=== PATIENT | male | born 1975 | race African-American/Black ===

== ENCOUNTER 2016-12-27 09:35 | Inpatient (IN) | payer OTHER ==
[~2016-12-27] VITALS: Ht 180.3 cm; Wt 109.0 kg
[2016-12-27] VITALS (8 sets, daily range): BP systolic 138–178; BP diastolic 105–124; PULSE 74–117; RESP 16–20; TEMP 97.9–98.2; O2SAT 97–100
[2016-12-27] MEDS ORDERED: ONDANSETRON HCL 4 MG/2 ML VIAL IVP ONE (10:15)
[2016-12-27] MEDS ORDERED: SODIUM CHLORIDE 0.9% FLUSH 5 ML FLUSH IVF PRN (10:15)
[2016-12-27] MEDS ORDERED: MORPHINE SULFATE 4 MG/ML INJ IV PUSH ONE (10:15)
--- NOTE | 2016-12-27 10:23 | PD ---
HPI Chief Complaint: GI Complaint Time Seen by Provider: 10:04 Travel History International Travel<30 days: No Contact w/Intl Traveler<30days: No Traveled to known affect area: No History of Present Illness HPI The patient is a 41-year-old [place] male who presents to the emergency department for multiple complaints. Patient states he recently moved from [place], [place] one month ago to relocate. The patient states over the last month he has had increasing abdominal distention associated with some nausea, decreased appetite, and diarrhea. He also complains of increase in edema to lower extremities bilaterally for the last week. He now notes increasing shortness of breath, states he has difficulty taking a deep breath, but denies any chest pain or cough. The patient does have a history of cardiomyopathy with a "thickened heart "and hypertension for which he was taking Benicar. However, the patient has been out of his Benicar secondary to financial issues for several months. The patient is had no previous imaging of his abdomen in regards to his month-long symptoms. The patient does not currently have a primary physician. PFS Past Medical History Cardiovascular Problems: Yes (HTN) GERD: Yes Hypertension: Yes Medical other: Yes ("THICKENING" OF THE HEART) Social History Alcohol Use: No Tobacco Use: No Substance Use: No Allergies-Medications (Allergen,Severity, Reaction): Coded Allergies: Morphine (Verified Allergy, Intermediate, Hives, 12/27/16) Reported Meds & Prescriptions Reported Meds & Active Scripts Active No Active Prescriptions or Reported Medications Review of Systems Except as stated in HPI: all other systems reviewed are Neg General / Constitutional: No: Fever Cardiovascular: No: Chest Pain or Discomfort Respiratory: Positive: Shortness of Breath Gastrointestinal: Positive: Nausea, Vomiting, Diarrhea, Abdominal Pain, Loss of Appetite Musculoskeletal: Positive: Edema Neurologic: Positive: Weakness Physical Exam Narrative GENERAL: Awake, alert, 41-year-old male appears his stated age and appears in mild respiratory discomfort. SKIN: Warm and dry. HEAD: Atraumatic. Normocephalic. EYES: Pupils equal and round. No scleral icterus. No injection or drainage. ENT: No nasal bleeding or discharge. Mucous membranes pink and moist. NECK: Trachea midline. Mild JVD. CARDIOVASCULAR: Regular, tachycardic. RESPIRATORY: No accessory muscle use. Clear to auscultation. Breath sounds equal bilaterally. GASTROINTESTINAL: Abdomen soft, mild distention, tenderness in the epigastrium. MUSCULOSKELETAL: No obvious deformities.. Edema from the knees inferiorly. NEUROLOGICAL: Awake and alert. No obvious cranial nerve deficits. Motor grossly within normal limits. Normal speech. Nonfocal. PSYCHIATRIC: Appropriate mood and affect; insight and judgment normal. Data Data Last Documented VS Vital Signs Date Time Temp Pulse Resp B/P Pulse Ox O2 Delivery O2 Flow Rate FiO2 12/27/16 13:29 95 20 178/124 97 12/27/16 13:29 Room Air 12/27/16 09:36 98.2 Orders Complete Blood Count With Diff (12/27/16 10:15) Comprehensive Metabolic Panel (12/27/16 10:15) Lipase (12/27/16 10:15) Lactic Acid (12/27/16 10:15) Prothrombin Time / Inr (Pt) (12/27/16 10:15) Act Partial Throm Time (Ptt) (12/27/16 10:15) Urinalysis - C+S If Indicated (12/27/16 10:15) Ct Abd/Pel W/O Iv Contrast (12/27/16 10:15) Iv Access Insert/Monitor (12/27/16 10:15) Ecg Monitoring (12/27/16 10:15) Oximetry (12/27/16 10:15) Morphine Inj (Morphine Inj) (12/27/16 10:15) Ondansetron Inj (Zofran Inj) (12/27/16 10:15) Sodium Chloride 0.9% Flush (Ns Flush) (12/27/16 10:15) Electrocardiogram (12/27/16 10:15) Chest, Single Ap (12/27/16 10:15) Us Leg Venous Doppler Bilat (12/27/16 ) Troponin I (12/27/16 10:15) Creatine Kinase (Cpk) (12/27/16 10:15) B-Type Natriuretic Peptide (12/27/16 10:15) Aspirin Chew (Aspirin Chew) (12/27/16 12:45) Admit Order (Ed Use Only) (12/27/16 13:32) Labs Laboratory Tests Test 12/27/16 12/27/16 10:20 10:35 White Blood Count 5.4 TH/MM3 Red Blood Count 5.02 MIL/MM3 Hemoglobin 13.8 GM/DL Hematocrit 41.9 % Mean Corpuscular Volume 83.4 FL Mean Corpuscular Hemoglobin 27.4 PG Mean Corpuscular Hemoglobin 32.9 % Concent Red Cell Distribution Width 14.4 % Platelet Count 230 TH/MM3 Mean Platelet Volume 9.6 FL Neutrophils (%) (Auto) 49.0 % Lymphocytes (%) (Auto) 36.1 % Monocytes (%) (Auto) 13.5 % Eosinophils (%) (Auto) 0.7 % Basophils (%) (Auto) 0.7 % Neutrophils # (Auto) 2.6 TH/MM3 Lymphocytes # (Auto) 1.9 TH/MM3 Monocytes # (Auto) 0.7 TH/MM3 Eosinophils # (Auto) 0.0 TH/MM3 Basophils # (Auto) 0.0 TH/MM3 CBC Comment DIFF FINAL Differential Comment Prothrombin Time 12.7 SEC Prothromb Time International 1.1 RATIO Ratio Activated Partial 24.8 SEC Thromboplast Time Sodium Level 143 MEQ/L Potassium Level 4.1 MEQ/L Chloride Level 106 MEQ/L Carbon Dioxide Level 27.4 MEQ/L Anion Gap 10 MEQ/L Blood Urea Nitrogen 19 MG/DL Creatinine 1.74 MG/DL Estimat Glomerular Filtration 52 ML/MIN Rate Random Glucose 130 MG/DL Lactic Acid Level 1.0 mmol/L Calcium Level 8.5 MG/DL Total Bilirubin 1.5 MG/DL Aspartate Amino Transf 29 U/L (AST/SGOT) Alanine Aminotransferase 49 U/L (ALT/SGPT) Alkaline Phosphatase 66 U/L Total Creatine Kinase 182 U/L Troponin I 0.42 NG/ML Total Protein 5.9 GM/DL Albumin 3.0 GM/DL Lipase 329 U/L Urine Color YELLOW Urine Turbidity HAZY Urine pH 7.0 Urine Specific [place] 1.025 Urine Protein 300 mg/dL Urine Glucose (UA) NEG mg/dL Urine Ketones NEG mg/dL Urine Occult Blood NEG Urine Nitrite NEG Urine Bilirubin SMALL Urine Urobilinogen LESS THAN 2.0 MG/DL Urine Leukocyte Esterase NEG Urine RBC LESS THAN 1 /hpf Urine WBC 2 /hpf Urine Squamous Epithelial <1 /hpf Cells Urine Hyaline Casts 6 /lpf Urine Mucus MOD /lpf Microscopic Urinalysis Comment CULT NOT INDICATED MDM Medical Decision Making Medical Screen Exam Complete: Yes Emergency Medical Condition: Yes Medical Record Reviewed: Yes Interpretation(s) EKG reveals sinus tachycardia with a heart rate of 101. Nonspecific T wave changes with inverted T waves in lead 1, aVL, V4, V5, V6. Last Impressions Abdomen/Pelvis CT 12/27/16 1015 Signed Impressions: Service Date/Time: Tuesday, December 27, 2016 12:02 - CONCLUSION: Umbilical hernia containing an air filled loop of intestine. There is no evidence of obstruction or incarceration. Anasarca and edematous changes in the retroperitoneum as described. Smaller moderate right pleural effusion and mild cardiomegaly. No evidence of inflammatory bowel disease, hydronephrosis, pancreatitis or cholecystitis. Antony Zuniga MD Lower Extremity Ultrasound 12/27/16 0000 Signed Impressions: Service Date/Time: Tuesday, December 27, 2016 11:12 - CONCLUSION: No DVT. Eddy Moffett MD Laboratory Tests Test 12/27/16 12/27/16 10:20 10:35 White Blood Count 5.4 TH/MM3 Red Blood Count 5.02 MIL/MM3 Hemoglobin 13.8 GM/DL Hematocrit 41.9 % Mean Corpuscular Volume 83.4 FL Mean Corpuscular Hemoglobin 27.4 PG Mean Corpuscular Hemoglobin 32.9 % Concent Red Cell Distribution Width 14.4 % Platelet Count 230 TH/MM3 Mean Platelet Volume 9.6 FL Neutrophils (%) (Auto) 49.0 % Lymphocytes (%) (Auto) 36.1 % Monocytes (%) (Auto) 13.5 % Eosinophils (%) (Auto) 0.7 % Basophils (%) (Auto) 0.7 % Neutrophils # (Auto) 2.6 TH/MM3 Lymphocytes # (Auto) 1.9 TH/MM3 Monocytes # (Auto) 0.7 TH/MM3 Eosinophils # (Auto) 0.0 TH/MM3 Basophils # (Auto) 0.0 TH/MM3 CBC Comment DIFF FINAL Differential Comment Prothrombin Time 12.7 SEC Prothromb Time International 1.1 RATIO Ratio Activated Partial 24.8 SEC Thromboplast Time Sodium Level 143 MEQ/L Potassium Level 4.1 MEQ/L Chloride Level 106 MEQ/L Carbon Dioxide Level 27.4 MEQ/L Anion Gap 10 MEQ/L Blood Urea Nitrogen 19 MG/DL Creatinine 1.74 MG/DL Estimat Glomerular Filtration 52 ML/MIN Rate Random Glucose 130 MG/DL Lactic Acid Level 1.0 mmol/L Calcium Level 8.5 MG/DL Total Bilirubin 1.5 MG/DL Aspartate Amino Transf 29 U/L (AST/SGOT) Alanine Aminotransferase 49 U/L (ALT/SGPT) Alkaline Phosphatase 66 U/L Total Creatine Kinase 182 U/L Troponin I 0.42 NG/ML Total Protein 5.9 GM/DL Albumin 3.0 GM/DL Lipase 329 U/L Urine Color YELLOW Urine Turbidity HAZY Urine pH 7.0 Urine Specific [place] 1.025 Urine Protein 300 mg/dL Urine Glucose (UA) NEG mg/dL Urine Ketones NEG mg/dL Urine Occult Blood NEG Urine Nitrite NEG Urine Bilirubin SMALL Urine Urobilinogen LESS THAN 2.0 MG/DL Urine Leukocyte Esterase NEG Urine RBC LESS THAN 1 /hpf Urine WBC 2 /hpf Urine Squamous Epithelial <1 /hpf Cells Urine Hyaline Casts 6 /lpf Urine Mucus MOD /lpf Microscopic Urinalysis Comment CULT NOT INDICATED Differential Diagnosis Differential diagnosis includes ascites, anasarca, DVT, pulmonary embolism, nutmeg liver, liver failure, acute renal failure, pleural effusion, congestive heart failure, cardiomyopathy. Narrative Course IV was established, labs are drawn and sent, and the patient was placed on cardiac telemetry monitoring and continuous pulse oximetry monitoring. Chest x- ray was obtained. Ultrasound bilateral lower extremities was ordered to evaluate for possible DVTs patient recently traveled, via car, from [place], [place] to [place]. CT the abdomen and pelvis was also ordered to evaluate abdominal distention and ongoing pain of one month's duration. CT of the abdomen and pelvis reveals retroperitoneal anasarca. Creatinine is mildly elevated at 1.78, troponin is elevated 0.42. Chest x-ray reveals right pleural effusion. Ultrasound lower extremities is negative for DVT. The patient appears to have anasarca, may be secondary to cardiomyopathy with elevated troponin. Patient will be admitted for serial cardiac enzymes, may benefit from echocardiogram and further evaluation by nephrology and cardiology. Therefore, the on-call medical service was paged for admission. Physician Communication Physician Communication The on-call medical service was paged for admission. I discussed the patient with Dr. Box who agrees with admission. Diagnosis Primary Impression: Acute coronary syndrome Additional Impressions: Cardiomyopathy Qualified Code: I42.9 - Cardiomyopathy, unspecified type Anasarca Admitting Information Admitting Physician Requests: Admit Scripts No Active Prescriptions or Reported Meds Condition: Stable Mirza Ames MD Dec 27, 2016 10:23
[2016-12-27 10:51] LABS: AUTOMATED NEUTROPHIL # 2.6 TH/MM3 (1.8-7.7); BASOPHIL % 0.7 % (0.0-2.0); EOSINOPHIL % 0.7 % (0.0-4.0); HEMATOCRIT 41.9 % (39.0-51.0); HEMO FLAGS DIFF FINAL; LYMPH % 36.1 % (9.0-44.0); LYMPHOCYTE # 1.9 TH/MM3 (1.0-4.8); MEAN CELL VOLUME 83.4 FL (80.0-100.0); MEAN CORPUSCULAR HEMOGLOBIN 27.4 PG (27.0-34.0); MEAN CORPUSCULAR HGB CONC 32.9 % (32.0-36.0); MONO % 13.5 % (0.0-8.0); PLATELET COUNT 230 TH/MM3 (150-450); RED BLOOD COUNT 5.02 MIL/MM3 (4.50-5.90); RED CELL DISTRIBUTION WIDTH 14.4 % (11.6-17.2); WHITE BLOOD COUNT 5.4 TH/MM3 (4.0-11.0)
[2016-12-27 10:56] LABS: APTT (PATIENT) 24.8 SEC (24.3-30.1); INTERNATIONAL NORMALIZED RATIO 1.1 RATIO; PROTHROMBIN TIME - PATIENT 12.7 SEC (9.8-11.6)
[2016-12-27 11:06] LABS: BLOOD, URINE NEG (NEG); GLUCOSE,URINE NEG (NEG); HYALINE CAST, URINE 6 /lpf (RARE); KETONE, URINE NEG (NEG); MUCUS URINE MOD /lpf (OCC); NITRITE,URINE NEG (NEG); SQUAMOUS EPITHELIAL CELL URINE <1 /hpf (0-5); URINE COLOR YELLOW (YELLW/STRAW)
--- NOTE | 2016-12-27 11:06 | RADRPT ---
EXAM DATE/TIME: 12/27/2016 10:24 [facility] COMPARISON: No previous studies available for comparison. INDICATIONS : Short of Breath MEDICAL HISTORY : Hypertension. Congestive heart failure. SURGICAL HISTORY : None. ENCOUNTER: Initial ACUITY: 1 day PAIN SCORE: 0/10 LOCATION: Bilateral chest FINDINGS: Heart is enlarged. Pulmonary vascularity is normal. Very minimal blunting is seen right costophreni c sulcus. CONCLUSION: Moderate compensated cardiomegaly without significant failure. Terry Duarte MD FACR on December 27, 2016 at 10:38 Board Certified Radiologist. This report was verified electronically.
[2016-12-27 11:09] LABS: COMMENT (UR) CULT NOT INDICATED; CULTURE IF INDICATED CULT NOT INDICATED
[2016-12-27 11:15] LABS: ALKALINE PHOSPHATASE 66 U/L (45-117); ALT (GPT) 49 U/L (12-78); ANION GAP 10 MEQ/L (5-15); AST (GOT) 29 U/L (15-37); BICARBONATE 27.4 MEQ/L (21.0-32.0); BLOOD UREA NITROGEN 19 MG/DL (7-18); CHLORIDE 106 MEQ/L (98-107); CREATINE KINASE 182 U/L (39-308); GLOMERULAR FILTRATION RATE 52 ML/MIN (>89); SODIUM (NA) 143 MEQ/L (136-145); TOTAL BILIRUBIN ADULT 1.5 MG/DL (0.2-1.0)
[2016-12-27 11:16] LABS: POTASSIUM 4.1 MEQ/L (3.5-5.1)
--- NOTE | 2016-12-27 12:41 | RADRPT ---
EXAM DATE/TIME: 12/27/2016 12:02 [facility] COMPARISON: No previous studies available for comparison. INDICATIONS : Abdominal bloating, cramping, nausea ORAL CONTRAST: No oral contrast ingested. RADIATION DOSE: 16.19 CTDIvol (mGy) MEDICAL HISTORY : None SURGICAL HISTORY : None. ENCOUNTER: Initial ACUITY: 1 month PAIN SCALE: 3/10 LOCATION: diffuse abdomen TECHNIQUE: Volumetric scanning of the abdomen and pelvis was performed. Using automated exposure control and ad justment of the mA and/or kV according to patient size, radiation dose was kept as low as reasonably achievable to obtain optimal diagnostic quality images. FINDINGS: LOWER LUNGS: Small to moderate right pleural effusion is noted. Heart is mildly enlarged. LIVER: Homogeneous density without lesion. There is no dilation of the biliary tree. No calcified gallston es. SPLEEN: Normal size without lesion. PANCREAS: Within normal limits. KIDNEYS: Normal in size and shape. There is no mass, stone, or hydronephrosis. ADRENAL GLANDS: Within normal limits. VASCULAR: There is no aortic aneurysm. BOWEL/MESENTERY: The stomach, small bowel, and colon demonstrate no acute abnormality. There is no free intraperitone al air or fluid. ABDOMINAL WALL: Moderate sized umbilical hernia containing a loop of air-filled bowel is noted. There are no findings to suggest obstruction or incarceration. Edematous changes are seen throughout the abdominal wall co nsistent with anasarca. RETROPERITONEUM: Fluid stranding is identified across the retroperitoneum in the pelvic region. There is no evidence o f discrete loculated fluid collections or mass. BLADDER: No wall thickening or mass. REPRODUCTIVE: Within normal limits. INGUINAL: There is no lymphadenopathy or hernia. MUSCULOSKELETAL: Within normal limits for patient age. CONCLUSION: Umbilical hernia containing an air filled loop of intestine. There is no evidence of obstruction or i ncarceration. Anasarca and edematous changes in the retroperitoneum as described. Smaller moderate right pleural effusion and mild cardiomegaly. No evidence of inflammatory bowel disease, hydronephrosis, pancreatitis or cholecystitis. Antony Zuniga MD on December 27, 2016 at 12:32 Board Certified Radiologist. This report was verified electronically.
--- NOTE | 2016-12-27 12:41 | RADRPT ---
EXAM DATE/TIME: 12/27/2016 11:12 [facility] COMPARISON: No previous studies available for comparison. INDICATIONS : Bialteral lower extremity edema. MEDICAL HISTORY : Hypertension. Gastroesophageal reflux disease. SURGICAL HISTORY : Left ACL and MCL repair. ENCOUNTER: Initial ACUITY: 2 weeks PAIN SCORE: 0/10 LOCATION: Bilateral legs. TECHNIQUE: Venous ultrasound of the left and right leg was performed from the inguinal ligament to the proximal calf. Real-time, color Doppler and spectral tracing, compression and augmentation techniques were us ed. FINDINGS: RIGHT LEG: There is normal compressibility of the deep venous system from the inguinal region to the proximal ca lf. No echogenic clot is seen in the lumen of the common femoral, femoral, popliteal, and posterior tibial veins. There is a normal response of the venous system to proximal and distal augmentation an d respiration. LEFT LEG: There is normal compressibility of the deep venous system from the inguinal region to the proximal ca lf. No echogenic clot is seen in the lumen of the common femoral, femoral, popliteal, and posterior tibial veins. There is a normal response of the venous system to proximal and distal augmentation an d respiration. CONCLUSION: No DVT. Eddy Moffett MD on December 27, 2016 at 12:39 Board Certified Radiologist. This report was verified electronically.
[2016-12-27] MEDS ORDERED: ASPIRIN 81 MG CHEW TAB CHEW ONE (12:45)
--- NOTE | 2016-12-27 13:29 | HHI.HP ---
HPI Service Family Medicine Primary Care Physician No Primary Care Physician Admission Diagnosis Diagnoses: International Travel<30 Days: No Contact w/Intl Traveler<30days: No Known Affected Area: No History of Present Illness Patient is a 41-year-old male with a PMH significant for cardiomyopathy and HTN. Present here today due to progressive worsening abdominal pain and SOB. The abdominal pain started one month ago and described as sharp pain that is positional. The shortness of breath has been progressively worsening over the last week and he noticed bilateral lower extremity swelling over the last couple weeks. He has noticed an associated abdominal bloating, decreased appetite, vomiting, nausea over this time period. Denies any chest pain. [place] like symptoms were initially due to constipation and has been taking Mylanta which does help with bloating but causes him to have diarrhea. The bloating sensation makes this SOB worse. Endorses a one-time episode of fever 2 weeks ago but none since. Endorses cough and orthopnea. Denies diaphoresis, melena, dysuria. Reports that he used to take an NELLY inhibitor to help with his cardiomyopathy and hypertension but has ran out due to insurance issues. Review of Systems Constitutional: COMPLAINS OF: Change in appetite, DENIES: Diaphoretic episodes , Fever Endocrine: DENIES: Polyuria Eyes: DENIES: Eye pain Ears, nose, mouth, throat: DENIES: Throat pain, Running Nose Respiratory: COMPLAINS OF: Cough, Shortness of breath, DENIES: Hemoptysis Cardiovascular: COMPLAINS OF: Lower Extremity Edema, Orthopnea, DENIES: Chest pain Gastrointestinal: COMPLAINS OF: Abdominal pain, Diarrhea, Nausea, Vomiting, DENIES: Black stools, Bloody stools Genitourinary: DENIES: Hematuria, Dysuria Musculoskeletal: DENIES: Joint pain Neurologic: DENIES: Headache Past Family Social History Past Medical History Cardiomyopathy HTN Past Surgical History Left knee, ACL and MCL repair Reported Medications Reported Meds & Active Scripts Active No Active Prescriptions or Reported Medications Allergies: Coded Allergies: Morphine (Verified Allergy, Intermediate, Hives, 12/27/16) Family History Father: [place] at young age, strokes Mother: Cardiac issues Social History Lives in hotel/emergency senior care Tobacco: deneis Alcohol: Use to drink socially, none over last 6mth Illicit: denies Physical Exam Vital Signs Vital Signs Date Time Temp Pulse Resp B/P Pulse Ox O2 Delivery O2 Flow Rate FiO2 12/27/16 09:36 98.2 117 16 157/121 98 Room Air Physical Exam GENERAL: This is a well-nourished, well-developed patient, in no apparent distress. Laying in bed comfortably. SKIN: No rashes, ecchymoses or lesions. Cool and dry. EYES: Pupils equal round and reactive. Extraocular motions intact. No scleral icterus. No injection or drainage. ENT: Nose without bleeding, purulent drainage. Throat without erythema, tonsillar hypertrophy or exudate. Uvula midline. Airway patent. NECK: No JVD or lymphadenopathy. CARDIOVASCULAR: Regular rate and rhythm without murmurs, gallops, or rubs. RESPIRATORY: Clear to auscultation. Breath sounds equal bilaterally. No wheezes , rales, or rhonchi. No accessory muscle use. GASTROINTESTINAL: Abdomen soft, mild tenderness to palpation of suprapubic, nondistended. No hepato-splenomegaly, or palpable masses. No guarding. MUSCULOSKELETAL: Extremities without clubbing, cyanosis. 3+ pitting edema up to knees bilaterally. Worse on R>L. No calf tenderness. NEUROLOGICAL: Awake and alert. Motor grossly within normal limits. Normal speech. Laboratory Laboratory Tests Test 12/27/16 12/27/16 10:20 10:35 White Blood Count 5.4 Red Blood Count 5.02 Hemoglobin 13.8 Hematocrit 41.9 Mean Corpuscular Volume 83.4 Mean Corpuscular Hemoglobin 27.4 Mean Corpuscular Hemoglobin 32.9 Concent Red Cell Distribution Width 14.4 Platelet Count 230 Mean Platelet Volume 9.6 Neutrophils (%) (Auto) 49.0 Lymphocytes (%) (Auto) 36.1 Monocytes (%) (Auto) 13.5 Eosinophils (%) (Auto) 0.7 Basophils (%) (Auto) 0.7 Neutrophils # (Auto) 2.6 Lymphocytes # (Auto) 1.9 Monocytes # (Auto) 0.7 Eosinophils # (Auto) 0.0 Basophils # (Auto) 0.0 CBC Comment DIFF FINAL Differential Comment Prothrombin Time 12.7 Prothromb Time International 1.1 Ratio Activated Partial 24.8 Thromboplast Time Sodium Level 143 Potassium Level 4.1 Chloride Level 106 Carbon Dioxide Level 27.4 Anion Gap 10 Blood Urea Nitrogen 19 Creatinine 1.74 Estimat Glomerular Filtration 52 Rate Random Glucose 130 Lactic Acid Level 1.0 Calcium Level 8.5 Total Bilirubin 1.5 Aspartate Amino Transf 29 (AST/SGOT) Alanine Aminotransferase 49 (ALT/SGPT) Alkaline Phosphatase 66 Total Creatine Kinase 182 Troponin I 0.42 Total Protein 5.9 Albumin 3.0 Lipase 329 Urine Color YELLOW Urine Turbidity HAZY Urine pH 7.0 Urine Specific [place] 1.025 Urine Protein 300 Urine Glucose (UA) NEG Urine Ketones NEG Urine Occult Blood NEG Urine Nitrite NEG Urine Bilirubin SMALL Urine Urobilinogen LESS THAN 2.0 Urine Leukocyte Esterase NEG Urine RBC LESS THAN 1 Urine WBC 2 Urine Squamous Epithelial <1 Cells Urine Hyaline Casts 6 Urine Mucus MOD Microscopic Urinalysis Comment CULT NOT INDICATED Result Diagram: 12/27/16 1020 12/27/16 1020 Imaging Last Impressions Abdomen/Pelvis CT 12/27/16 1015 Signed Impressions: Service Date/Time: Tuesday, December 27, 2016 12:02 - CONCLUSION: Umbilical hernia containing an air filled loop of intestine. There is no evidence of obstruction or incarceration. Anasarca and edematous changes in the retroperitoneum as described. Smaller moderate right pleural effusion and mild cardiomegaly. No evidence of inflammatory bowel disease, hydronephrosis, pancreatitis or cholecystitis. Antony Zuniga MD Lower Extremity Ultrasound 12/27/16 0000 Signed Impressions: Service Date/Time: Tuesday, December 27, 2016 11:12 - CONCLUSION: No DVT. Eddy Moffett MD Assessment and Plan Assessment and Plan 41-year-old male with PMH significant for cardiomyopathy and HTN. Code Status Full Discussed Condition With Dr. Cameron Problem List: (1) Cardiomyopathy Status: Acute Plan: History significant for cardiomyopathy. Associated with progressive shortness of breath, abdominal bloating, lower extremity swelling over the last month. Has been on NELLY inhibitor in the past but none recently due to financial issues. -Diureses per nephrology due to poor renal function -BNP elevated at 1025 -ACS evaluation * Troponin elevated likely due to cardiomyopathy and CKD as there is no acute chest pain -Echo ordered -ALPA santizo Cardiology consulted: Appreciate recommendations Medications: * Bumex 2mg daily * metoprolol 25mg BID * will consider the need for NELLY inhibitor (2) SOB (shortness of breath) Status: Acute Plan: Etiology unclear but likely due to cardiomyopathy. -Diuresis as above -No DVT on lower extremity ultrasound -Diagnostic pleurocentesis ordered with appropriate studies Imaging: * CXR: Moderate compensated cardiomegaly without significant failure * Abdominal/pelvis CT: Umbilical hernia without evidence of obstruction or incarceration. Anasarca and edematous changes in the retroperitoneum. Smaller moderate right pleural effusion and mild cardiomegaly. No evidence of IBD, hydronephrosis, pancreatitis, cholecystitis. (3) CKD (chronic kidney disease) Status: Acute Plan: Suspect patient may have an underlining kidney disease that may have been exacerbated by HTN and cardiomyopathy. No baseline renal function to compare as the patient denies any prior history of renal dysfunction. -UA significant for proteinuria Nephrology consulted: appreciate recommendations * Obtain A1c, electrophoresis, complement (4) HTN (hypertension) Status: Acute Plan: Hypertensive on admission. -Hydralazine PRN -Consider adding HCTZ vs NELLY inhibitor (5) Nutrition, metabolism, and development symptoms Status: Acute Plan: Diet: Heart healthy with salt and fluid restrictions Electrolytes: Unremarkable Fluids: None DVT prophylaxis: Heparin held until after pleurocentesis, SCDs for now GI prophylaxis: Not indicated Physician Certification 2 Midnight Certification Type: Admission for Inpatient Services Order for Inpatient Services The services are ordered in accordance with Medicare regulations or non- Medicare payer requirements, as applicable. In the case of services not specified as inpatient-only, they are appropriately provided as inpatient services in accordance with the 2-midnight benchmark. Estimated LOS (days): 2 days is the estimated time the patient will need to remain in the hospital, assuming treatment plan goals are met and no additional complications. Post-Hospital Plan: Home Problem Qualifiers (1) Cardiomyopathy: Qualified Code: I42.9 - Cardiomyopathy, unspecified type Smiley Lowe MD R2 Dec 27, 2016 13:29
[2016-12-27] MEDS ORDERED: SODIUM CHLORIDE 0.9% FLUSH 5 ML FLUSH FLUSH PRN (14:15)
[2016-12-27] MEDS ORDERED: NALOXONE HCL 0.4 MG/ML AMP IV PRN (14:15)
[2016-12-27] MEDS ORDERED: hydrALAZINE HCL 10 MG TAB PO PRN (14:30)
[2016-12-27] MEDS ORDERED: HEPARIN SODIUM - SQ 10,000 UNITS/ML VIAL SQ SCH (16:00)
[2016-12-27] MEDS ORDERED: hydrALAZINE HCL 10 MG TAB PO ONE (16:30)
--- NOTE | 2016-12-27 17:05 | PD.CONS ---
HPI Service Nephrology Consult Requested By Reason for Consult Evaluation of fluid overload, possible CKD Primary Care Physician No Primary Care Physician History of Present Illness This is a 41 y/o AAM pt. He came in for evaluation of one month of symptoms including nausea, abdominal fullness, lower extremity edema, shortness of breath. He has been vomiting intermittently as well. 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 He is currently living in a hotel. Labs on arrival abnormal for the following: Cr 1.74 , BUN 19, GFR 52, BNP 1025, Trop 0.42, Blood sugar 130. K and C02 are unremarkable. He was diagnosed with cardiomyopathy at the age of 21, approximately 20 years ago. He was placed on Benicar a number of years ago, but had run out if it and had no insurance. Today he has 3+ pitting in his lower extremities, anasarca on CT, and pleural effusion by Xray. His UA shows high levels of protein, no evidence of infection. imaging did not reveal any obstruction. He used Ibuprofen one time but that was nearly one month ago. He does report his urine output has decreased. (Citlaly Clinton) Review of Systems Constitutional: COMPLAINS OF: Fatigue, Weight gain Cardiovascular: COMPLAINS OF: Dyspnea on Exertion, Lower Extremity Edema Gastrointestinal: COMPLAINS OF: Diarrhea, Nausea, Vomiting, DENIES: Abdominal pain (Citlaly Clinton) Past Family Social History Allergies: Coded Allergies: Morphine (Verified Allergy, Intermediate, Hives, 12/27/16) Past Medical History HTN Cardiomyopathy GERD Past Surgical History L knee (ACL, MCL) Reported Medications he was not taking any medications prior to admission. Active Ordered Medications Current Medications Medications (Trade) Dose Ordered Sig/Yo Route Start Time Stop Time Status Last Admin (NS Flush) 2 ml UNSCH PRN IVF 12/27/16 10:15 (NS Flush) 2 ml UNSCH PRN FLUSH 12/27/16 14:15 (NS Flush) 2 ml BID FLUSH 12/27/16 21:00 (Zofran Inj) 4 mg Q6H PRN IVP 12/27/16 14:15 (Heparin Inj) 5,000 units Q8H SQ 12/27/16 16:00 (Tylenol) 650 mg Q6H PRN PO 12/27/16 14:15 (Narcan Inj) 0.4 mg UNSCH PRN IV 12/27/16 14:15 (Apresoline) 10 mg Q6HR PRN PO 12/27/16 14:30 Family History mother-DM2 father-DM 2, CVA, PAD s/p bilateral AKA no hx of renal disorders Social History 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 he is single, living in a motel temporarily unemployed no smoking hx, no drug hx former social ETOH full code (Citlaly Clinton) Physical Exam Vital Signs Vital Signs Date Time Temp Pulse Resp B/P Pulse Ox O2 Delivery O2 Flow Rate FiO2 12/27/16 16:12 99 20 174/109 98 Room Air 12/27/16 13:29 95 20 178/124 97 12/27/16 13:29 99 Room Air 12/27/16 09:36 98.2 117 16 157/121 98 Room Air Physical Exam Young appearing AAM, sitting up awake/alert/oriented S1/S2, regular rate, no murmurs Lungs: bibasilar rales Abd: slightly tender Ext: 3+ edema, no open wounds Laboratory Laboratory Tests Test 12/27/16 12/27/16 10:20 10:35 White Blood Count 5.4 Red Blood Count 5.02 Hemoglobin 13.8 Hematocrit 41.9 Mean Corpuscular Volume 83.4 Mean Corpuscular Hemoglobin 27.4 Mean Corpuscular Hemoglobin 32.9 Concent Red Cell Distribution Width 14.4 Platelet Count 230 Mean Platelet Volume 9.6 Neutrophils (%) (Auto) 49.0 Lymphocytes (%) (Auto) 36.1 Monocytes (%) (Auto) 13.5 Eosinophils (%) (Auto) 0.7 Basophils (%) (Auto) 0.7 Neutrophils # (Auto) 2.6 Lymphocytes # (Auto) 1.9 Monocytes # (Auto) 0.7 Eosinophils # (Auto) 0.0 Basophils # (Auto) 0.0 CBC Comment DIFF FINAL Differential Comment Prothrombin Time 12.7 Prothromb Time International 1.1 Ratio Activated Partial 24.8 Thromboplast Time Sodium Level 143 Potassium Level 4.1 Chloride Level 106 Carbon Dioxide Level 27.4 Anion Gap 10 Blood Urea Nitrogen 19 Creatinine 1.74 Estimat Glomerular Filtration 52 Rate Random Glucose 130 Lactic Acid Level 1.0 Calcium Level 8.5 Total Bilirubin 1.5 Aspartate Amino Transf 29 (AST/SGOT) Alanine Aminotransferase 49 (ALT/SGPT) Alkaline Phosphatase 66 Total Creatine Kinase 182 Troponin I 0.42 B-Type Natriuretic Peptide 1025 Total Protein 5.9 Albumin 3.0 Lipase 329 Urine Color YELLOW Urine Turbidity HAZY Urine pH 7.0 Urine Specific [place] 1.025 Urine Protein 300 Urine Glucose (UA) NEG Urine Ketones NEG Urine Occult Blood NEG Urine Nitrite NEG Urine Bilirubin SMALL Urine Urobilinogen LESS THAN 2.0 Urine Leukocyte Esterase NEG Urine RBC LESS THAN 1 Urine WBC 2 Urine Squamous Epithelial <1 Cells Urine Hyaline Casts 6 Urine Mucus MOD Microscopic Urinalysis Comment CULT NOT INDICATED (Citlaly Clinton) Result Diagram: 12/27/16 1020 12/27/16 1020 Imaging Last Impressions Abdomen/Pelvis CT 12/27/16 1015 Signed Impressions: Service Date/Time: Tuesday, December 27, 2016 12:02 - CONCLUSION: Umbilical hernia containing an air filled loop of intestine. There is no evidence of obstruction or incarceration. Anasarca and edematous changes in the retroperitoneum as described. Smaller moderate right pleural effusion and mild cardiomegaly. No evidence of inflammatory bowel disease, hydronephrosis, pancreatitis or cholecystitis. Antony Zuniga MD Lower Extremity Ultrasound 12/27/16 0000 Signed Impressions: Service Date/Time: Tuesday, December 27, 2016 11:12 - CONCLUSION: No DVT. Eddy Moffett MD (Citlaly Clinton) Assessment and Plan Problem List: (1) FAY (acute kidney injury) Plan: with no labs for comparison unsure if the is FAY on CKD vs. CKD at this time there are no electrolyte abnormalities no obstruction on imaging he has never had renal work up UA showing protein, will quantify obtain A1c, fam hx of DM but no personal hx as of now obtain serologies, Serum electrophoresis, complement levels monitor urine output may have underlying CKD due to HTN or CHF, possibly DM await additional test results he is fluid overload, begin Bumex and monitor effect avoid IVF, avoid nephrotoxins daily renal panel (2) HTN (hypertension) Plan: formerly on Benicar given hydralazine, will start metoprolol, (heart rate is 90s) (3) Cardiomyopathy Plan: Echo ordered to evaluate LVEF, cardiology has been consulted diuresis as above he is scheduled for thoracentesis, diagnostic and therapeutic today (4) Acute coronary syndrome Plan: Elevated troponin EKG, echo, cardiology evaluation in progress (Citlaly Clinton) Assessment and Plan patient was seen and examined. Continue diuresis. He has proteinuria, CKD, and cardiomyopathy. Quantify proteinuria. Consider deposition diseases (including hereditary). Cardiology evaluation. (Etienne Terry MD) Problem Qualifiers (1) Cardiomyopathy: Qualified Code: I42.9 - Cardiomyopathy, unspecified type Citlaly Clinton Dec 27, 2016 17:05 Etienne Terry MD Dec 27, 2016 20:30
[2016-12-27] MEDS ORDERED: ENALAPRILAT 1.25 MG/ML VIAL IV PRN (18:15)
--- NOTE | 2016-12-27 19:03 | EC ---
Study Study Date:12/27/2016 STUDY CONCLUSIONS SUMMARY - Left ventricle: The cavity size was dilated. Wall thickness was increased in a pattern of moderate LVH. Systolic function was severely reduced. The estimated ejection fraction was 20%. Wall motion was normal; there were no regional wall motion abnormalities. - Aortic valve: Mild regurgitation. - Mitral valve: Mild regurgitation. - Left atrium: The atrium was mildly dilated. - Right ventricle: The cavity size was dilated. Wall thickness was normal. RV dysfunction. If LV function is below 40, please consider prescribing an ACEI or ARB or document rationale for non-use. PROCEDURE DATA STUDY STATUS: Elective. Procedure: Transthoracic echocardiography. Image quality was good. Scanning was performed from the parasternal, apical, and subcostal acoustic windows. Study completion: The patient tolerated the procedure well. Transthoracic echocardiography. M-mode, complete 2D, complete spectral Doppler, and color Doppler. Height: Height: 71in. Weight: Weight: 230.5lb. Body mass index: BMI: 32.2kg/m^2. Body surface area: BSA: 2.24m^2. Patient status: Inpatient. CARDIAC ANATOMY LEFT VENTRICLE: The cavity size was dilated. Wall thickness was increased in a pattern of moderate LVH. Systolic function was severely reduced. The estimated ejection fraction was 20%. Wall motion was normal; there were no regional wall motion abnormalities. AORTIC VALVE: Trileaflet; normal thickness leaflets. Doppler: Transvalvular velocity was within the normal range. There was no stenosis. Mild regurgitation. AORTA: Aortic root: The aortic root was normal in size. MITRAL VALVE: Structurally normal valve. Doppler: Transvalvular velocity was within the normal range. There was no evidence for stenosis. Mild regurgitation. Valve area by pressure half-time: 6.11cm^2. Indexed valve area by pressure half-time: 2.73cm^2/m^2. Peak gradient: 4mm Hg (D). LEFT ATRIUM: The atrium was mildly dilated. RIGHT VENTRICLE: The cavity size was dilated. Wall thickness was normal. RV dysfunction. PULMONIC VALVE: Doppler: Transvalvular velocity was within the normal range. There was no evidence for stenosis. No regurgitation. TRICUSPID VALVE: Structurally normal valve. Doppler: Transvalvular velocity was within the normal range. Trace regurgitation. Peak gradient: 33mm Hg (D). PULMONARY ARTERY: The main pulmonary artery was normal-sized. Systolic pressure was within the normal range. RIGHT ATRIUM: The atrium was normal in size. PERICARDIUM: There was no pericardial effusion. SYSTEMIC VEINS: Inferior vena cava: The vessel was normal in size. Patient weight: 230.5lb _Ejection fraction:_ 65-75% _Fractional shortening:_ 32% up to 5Kg 5-11.5Kg 11.6-22.9Kg 23-45Kg 45-57Kg Aortic Root 7-13 <17 13-22 17-27 17-27 LA diam 6-13 <23 24-38 33-47 37-40 RVID 10-17 7-15 7-15 7-18 8-17 LVIDd 12-22 <32 24-38 33-47 37-40 LVPW 2-4 3-6 5-7 6-8 7-8 IVS 2-4 3-6 5-7 6-8 7-8 BASIC MEASUREMENTS ADULT NORMAL Left ventricle LV internal dimension, ED, chordal *55.7 mm 43-52 level, PLAX LV internal dimension, ES, chordal *51.7 mm 23-38 level, PLAX Fractional shortening, chordal level, *7 % >29 PLAX LV posterior wall thickness, ED 17.4 mm IVS/LVPW ratio, ED 1 <1.3 Volume, ED, MOD, 1-plane 243 ml Volume, ES, MOD, 1-plane 184 ml Ejection fraction, MOD, 1-plane 24 % Stroke volume, MOD, 1-plane 59 ml Volume index, ED, MOD, 1-plane 108 ml/m^2 Volume index, ES, MOD, 1-plane 82 ml/m^2 Stroke index, MOD, 1-plane 26.3 ml/m^2 Ventricular septum Septal thickness, ED 17.4 mm Aortic valve Leaflet separation 23 mm 15-26 Left atrium Anterior-posterior dimension 44 mm Anterior-posterior dimension index 1.96 cm/m^2 <2.2 Right ventricle RV internal dimension, ED, PLAX 36.4 mm 19-38 BASIC MEASUREMENTS ADULT NORMAL Aortic valve Leaflet separation 23 mm 15-26 Aorta Root diameter, ED 33 mm 20-37 Left atrium Anterior-posterior dimension, ES *44 mm 19-40 Anterior-posterior dimension index, ES 1.96 cm/m^2 <2.2 LA/aortic root ratio 1.33 DOPPLER MEASUREMENTS ADULT NORMAL Aortic valve Peak velocity, S 91.9 cm/s Regurgitant velocity, ED 287 cm/s Regurgitant deceleration 2680 cm/s^2 Regurgitant pressure half-time 314 ms Regurgitant gradient, ED 33 mm Hg Mitral valve Peak E-wave velocity 103 cm/s Peak A-wave velocity 40.5 cm/s Pressure half-time 36 ms Peak gradient, D 4 mm Hg Peak E/A ratio 2.5 Valve area, pressure half-time 6.11 cm^2 Valve area index, pressure half-time 2.73 cm^2/m^2 Tricuspid valve Peak gradient, D 33 mm Hg Maximal inflow velocity 286 cm/s Systemic veins Estimated CVP 10 mm Hg Pulmonic valve Peak velocity, S 66.5 cm/s LEGEND: Mean values are shown as u=mean value. Asterisk (*) okeefe values outside specified normal range. Prepared and signed by Jin Wetzel [id number]
[2016-12-27] MEDS: BUMETANIDE INJ 1 MG/4 ML VIAL IV PUSH SCH (19:12)
--- NOTE | 2016-12-27 20:24 | MB ---
cc: CHARLIE WELLINGTON DATE OF CONSULTATION 12/27/2016 REASON FOR CONSULTATION Mr. Olmedo is a 41-year-old black male with a history of cardiomyopathy diagnosed in his early 20s and severe hypertension. He has had increased shortness of breath, abdominal pain and lower extremity edema for the last month progressively worse over the last 10 days. He used to be on medications but states that he could not afford any recently. He moved from [place] and stays in a hotel in [facility]. PAST MEDICAL HISTORY Positive for: 1. Non ischemic cardiomyopathy. 2. Hypertension. 3. Left knee surgery. No history of diabetes mellitus, dyslipidemia, coronary artery disease or cerebrovascular accident. MEDICATIONS None. ALLERGIES MORPHINE. SOCIAL HISTORY The patient does not smoke. He does not drink alcohol. FAMILY HISTORY Positive for coronary artery disease and strokes. REVIEW OF SYSTEMS Otherwise negative. PHYSICAL EXAMINATION VITAL SIGNS: Blood pressure 174/109, pulse 99 and regular. HEENT: Negative. 2+ carotid upstroke. No bruits. LUNGS: Clear with decreased breath sounds at the bases. HEART: irregular with no murmur, gallop or rub. ABDOMEN: Soft. No bruits. EXTREMITIES: With 3+ pitting edema. 1+ distal pulses. NEUROLOGICAL: Grossly nonfocal. EKG was reviewed and showed normal sinus rhythm, left atrial enlargement and nonspecific T wave changes. LABORATORY DATA Hemoglobin 13.8. Potassium 4.1. Creatinine 1.74. AST 29, ALT 49. Troponin 0.42. BNP 1025. Echocardiogram showed severe biventricular dysfunction with an ejection fraction of 20%, severe global hypokinesis. DIAGNOSES 1. Acute exacerbation of chronic systolic congestive heart failure. 2. Acute exacerbation of chronic kidney disease. 3. Hypertension. 4. Nonischemic cardiomyopathy. 5. Mildly elevated troponin. DISPOSITION Mr. Olmedo was found to have evidence of acute congestive heart failure. We will start IV diuresis. He is severely hypertensive and we will initiate therapy with beta jt and low dose NELLY inhibitor, closely monitoring his renal function. He is undergoing nephrology evaluation. I will follow him for cardiology during his hospitalization. I recommend to schedule followup at [facility] after discharge. MD ANTONIO Esparza/JONY /7:15 PM /8:00 PM LENNY
[2016-12-27] MEDS: SODIUM CHLORIDE 0.9% FLUSH 5 ML FLUSH FLUSH SCH (21:00)
[2016-12-27] MEDS ORDERED: METOPROLOL TARTRATE 25 MG TAB PO SCH (21:00)
[2016-12-27] MEDS: CARVEDILOL 12.5 MG TAB PO SCH (21:16)
[2016-12-27 22:07] LABS: URINE TOTAL PROTEIN TIMED 350.7 MG/DL
[2016-12-27] MEDS: ONDANSETRON HCL 4 MG/2 ML VIAL IVP PRN (22:43)
[2016-12-27 23:43] LABS: CREATINE KINASE 127 U/L (39-308); TOTAL PROTEIN SPE 5.2 GM/DL (6.0-7.6)
[2016-12-28] VITALS (28 sets, daily range): BP systolic 106–141; BP diastolic 60–90; PULSE 69–78; RESP 16–18; TEMP 97.7–98.3; O2SAT 93–100
[2016-12-28 07:17] LABS: ALT (GPT) 35 U/L (12-78); ANION GAP 9 MEQ/L (5-15); AST (GOT) 18 U/L (15-37); BICARBONATE 27.5 MEQ/L (21.0-32.0); BLOOD UREA NITROGEN 20 MG/DL (7-18); CHLORIDE 108 MEQ/L (98-107); GLOMERULAR FILTRATION RATE 52 ML/MIN (>89); POTASSIUM 3.7 MEQ/L (3.5-5.1); SODIUM (NA) 144 MEQ/L (136-145)
[2016-12-28 07:19] LABS: ALKALINE PHOSPHATASE 56 U/L (45-117); TOTAL BILIRUBIN ADULT 1.2 MG/DL (0.2-1.0)
--- NOTE | 2016-12-28 08:03 | HHI.NPPN ---
Subjective Interval History patient was seen and examined. No specific complaints. Shortness of breath slightly better. Apparently had been having chest heaviness before hospital admission. He was diagnosed with cardiomyopathy when he was in his 20s. Review of Systems General Constitutional: Fatigue Respiratory Lungs: SOB Cardiovascular Cardiac: Chest Pain, Edema, WOOTEN Objective Data Data 12/27/16 12/28/16 19:00 07:00 Intake Total 240 ml Output Total 650 ml Balance -410 ml Intake Oral 240 ml Output Urine Total 650 ml # Bowel Movements 1 Vital Signs Date Time Temp Pulse Resp B/P Pulse Ox O2 Delivery O2 Flow Rate FiO2 12/28/16 07:51 78 12/28/16 06:00 70 12/28/16 05:00 72 12/28/16 04:00 70 12/28/16 03:00 69 12/28/16 03:00 98.1 69 18 117/81 98 12/28/16 02:00 76 12/28/16 01:00 78 12/28/16 00:00 76 12/27/16 23:00 98.0 75 18 138/105 100 12/27/16 23:00 80 12/27/16 22:00 74 12/27/16 21:45 21 12/27/16 20:45 97.9 96 18 158/120 100 12/27/16 20:34 98.1 97 18 153/110 100 Room Air 12/27/16 19:15 97 18 168/124 98 Room Air 12/27/16 16:12 99 20 174/109 98 Room Air 12/27/16 13:29 95 20 178/124 97 12/27/16 13:29 99 Room Air 12/27/16 09:36 98.2 117 16 157/121 98 Room Air -: 12/27/16 1020 12/28/16 0605 Physical Exam General Appearance: Well Developed, Well Nourished, No Acute Distress Eyes Eye Exam: Pupils Equal, Pupils Reactive, Sclera White, Extraocular Movement Intact Ears & Nose Ears & Nose Exam: Tympanic Membranes Normal Throat Throat Exam: Oral Mucosa [place] & Moist Neck Neck Exam: Neck Supple, Trachea Midline Pulmonary Resp Exam: Clear Bilaterally, Breath Sounds Equal, No Distress Cardiology CV Exam: Regular, Normal Sinus Rhythm Gastrointestinal/Abdomen GI Exam: Soft, Non-Tender, Bowel Sounds Present, No Hepatosplenomegaly Musculoskeletal MS Exam: Joints Intact Integumentary Skin Exam: Intact Extremeties Extremities Exam: Moderate Edema, Dependent Edema Neurologic Neuro Exam: Alert, Awake, Oriented, Speech Clear, Moving All Extremities Psychiatric Psych Exam: Appropriate Responses Assessment/Plan Problem List: (1) FAY (acute kidney injury) Plan: may have cardiorenal syndrome. Baseline renal function is not known, he does have proteinuria. Microalbumin/creatinine ratio: 438 mg/gram. Order 24 hour urine collection for protein estimation. Serologies ordered, pending. (2) HTN (hypertension) Plan: Currently on Carvedilol and Lisinopril. (3) Cardiomyopathy Plan: Etiology is unclear. Patient reports that he never had cardiac cath. Non ischemic cardiomyopathy vs ischemic etiology. Mild elevation in Troponin. Consider deposition diseases. Cardiology following. On NELLY inhibitor. Continue Bumex. Problem Qualifiers (1) Cardiomyopathy: Qualified Code: I42.9 - Cardiomyopathy, unspecified type Eteinne Terry MD Dec 28, 2016 08:03
[2016-12-28] MEDS: LISINOPRIL 5 MG TAB PO SCH (08:45)
[2016-12-28] MEDS: BUMETANIDE INJ 1 MG/4 ML VIAL IV PUSH SCH (08:46)
[2016-12-28] MEDS: SODIUM CHLORIDE 0.9% FLUSH 5 ML FLUSH FLUSH SCH ×2 (08:47→21:12)
[2016-12-28] MEDS: CARVEDILOL 12.5 MG TAB PO SCH ×2 (08:47→21:12)
[2016-12-28] MEDS: PANTOPRAZOLE SOD 20 MG DELAYED RELEASE TAB PO SCH (11:35)
--- NOTE | 2016-12-28 11:45 | HHI.FPPN ---
Subjective Remarks This is a 41-year-old male with known congenital cardiomyopathy who presented with abdominal bloating for 2-4 weeks, associated with some nausea and vomiting, and shortness of breath. He's had orthopnea but no chest pain. He moved here from [place], and has been off his chronic medications. Does not use tobacco or alcohol any longer but currently is homeless. This morning, he feels a little bit better, has been voiding quite a bit of urine. He still is using some accessory muscles to fill his lungs. He reports that he's had significant edema of his lower extremities for an indeterminate amount of time, probably many weeks. He reports that his legs are quite heavy when he ambulates. Please see history and physical examination for this hospitalization for additional past, family, social history. Review of systems other than as noted above negative, he does still feel some abdominal bloating when he eats and thus he is hesitant to take by mouth because it causes him to have some shortness of breath. Objective Vitals Vital Signs Date Time Temp Pulse Resp B/P Pulse Ox O2 Delivery O2 Flow Rate FiO2 12/28/16 10:00 73 12/28/16 09:00 75 12/28/16 08:48 98 Nasal Cannula 3.50 12/28/16 08:00 70 12/28/16 07:51 78 12/28/16 07:00 98.1 75 16 141/60 100 12/28/16 06:00 70 12/28/16 05:00 72 12/28/16 04:00 70 12/28/16 03:00 69 12/28/16 03:00 98.1 69 18 117/81 98 12/28/16 02:00 76 12/28/16 01:00 78 12/28/16 00:00 76 12/27/16 23:00 98.0 75 18 138/105 100 12/27/16 23:00 80 12/27/16 22:00 74 12/27/16 21:45 21 12/27/16 20:45 97.9 96 18 158/120 100 12/27/16 20:34 98.1 97 18 153/110 100 Room Air 12/27/16 19:15 97 18 168/124 98 Room Air 12/27/16 16:12 99 20 174/109 98 Room Air 12/27/16 13:29 95 20 178/124 97 12/27/16 13:29 99 Room Air I/O 12/27/16 12/27/16 12/27/16 12/28/16 12/28/16 12/28/16 07:00 15:00 23:00 07:00 15:00 23:00 Intake Total 240 ml Output Total 650 ml Balance -410 ml Intake Oral 240 ml Output Urine Total 650 ml # Bowel Movements 1 Result Diagram: 12/27/16 1020 12/28/16 0605 Other Results Laboratory Tests Test 12/27/16 12/27/16 12/28/16 14:15 22:18 06:05 Troponin I 0.37 NG/ML 0.33 NG/ML Total Protein 5.2 GM/DL 4.9 GM/DL Chloride Level 108 MEQ/L Blood Urea Nitrogen 20 MG/DL Creatinine 1.74 MG/DL Estimat Glomerular Filtration 52 ML/MIN Rate Random Glucose 110 MG/DL Calcium Level 8.3 MG/DL Total Bilirubin 1.2 MG/DL Albumin 2.5 GM/DL Imaging Last Impressions Chest X-Ray 12/27/16 1015 Signed Impressions: Service Date/Time: Tuesday, December 27, 2016 10:24 - CONCLUSION: Moderate compensated cardiomegaly without significant failure. Terry Duarte MD FACR Abdomen/Pelvis CT 12/27/16 1015 Signed Impressions: Service Date/Time: Tuesday, December 27, 2016 12:02 - CONCLUSION: Umbilical hernia containing an air filled loop of intestine. There is no evidence of obstruction or incarceration. Anasarca and edematous changes in the retroperitoneum as described. Smaller moderate right pleural effusion and mild cardiomegaly. No evidence of inflammatory bowel disease, hydronephrosis, pancreatitis or cholecystitis. Antony Zuniga MD Lower Extremity Ultrasound 12/27/16 0000 Signed Impressions: Service Date/Time: Tuesday, December 27, 2016 11:12 - CONCLUSION: No DVT. Eddy Moffett MD Objective Remarks O. CONSTITUTIONAL/GEN: Alert and pleasant, normally nourished, in mild respiratory distress EYES: conjunctiva normal, PERRLA, EOMI. ENT: Mouth and pharynx normal. NECK: No lymphadenopathy LUNGS: Surprisingly clear A-P, respiratory effort is somewhat increased . CARDIOVASCULAR: RR without murmur or gallop. Regular, but distant. 3+ pitting edema to just below the knee. GI/ABD: soft without masses, without organomegaly. Active bowel sounds. NEURO: No focal deficits. SKIN: color normal, no rashes noted. HEME/LYMPH: no bruising, petechia or significant adenopathy MUSC: back is normal in appearance. PSYCH/MENTAL STATUS: Alert and oriented x 3. A/P Assessment and Plan 41-year-old male with PMH significant for cardiomyopathy and HTN, pleural effusion and significant anasarca and peripheral edema Attending Attestation Patient seen and examined. Case reviewed and discussed with the resident team. Agree with plan of care as discussed with me and documented in the resident note. Problem List: (1) Cardiomyopathy Status: Acute Plan: History significant for cardiomyopathy. Associated with progressive shortness of breath, abdominal bloating, lower extremity swelling over the last month. Has been on NELLY inhibitor in the past but none recently due to financial issues. -Diurese per nephrology due to poor renal function -BNP elevated at 1025 -ACS evaluation * Troponin elevated likely due to cardiomyopathy and CKD as there is no acute chest pain -Echo ordered -ALPA santizo Cardiology consulted: Appreciate recommendations, low-dose nelly has been initiated Medications: * Bumex 2mg daily * metoprolol 25mg BID * will consider the need for NELLY inhibitor (2) SOB (shortness of breath) Status: Acute Plan: Etiology unclear but likely due to cardiomyopathy. -Diuresis as above -No DVT on lower extremity ultrasound -Diagnostic pleurocentesis ordered with appropriate studies Imaging: * CXR: Moderate compensated cardiomegaly without significant failure * Abdominal/pelvis CT: Umbilical hernia without evidence of obstruction or incarceration. Anasarca and edematous changes in the retroperitoneum. Smaller moderate right pleural effusion and mild cardiomegaly. No evidence of IBD, hydronephrosis, pancreatitis, cholecystitis. (3) CKD (chronic kidney disease) Status: Chronic Plan: Suspect patient may have an underlining kidney disease that may have been exacerbated by HTN and cardiomyopathy. No baseline renal function to compare as the patient denies any prior history of renal dysfunction. -UA significant for proteinuria Nephrology consulted: appreciate recommendations * Obtain A1c, electrophoresis, complement Appreciate evaluation and recommendations by nephrology. (4) HTN (hypertension) Status: Acute Plan: Hypertensive on admission. -Hydralazine PRN -Low-dose NELLY inhibitor has been initiated (5) Nutrition, metabolism, and development symptoms Status: Acute Plan: Diet: Heart healthy with salt and fluid restrictions Electrolytes: Unremarkable Fluids: None DVT prophylaxis: Heparin held until after pleurocentesis, SCDs for now GI prophylaxis: Not indicated Problem Qualifiers (1) Cardiomyopathy: Qualified Code: I42.9 - Cardiomyopathy, unspecified type Flakita Cameron MD Dec 28, 2016 11:45
[2016-12-28 12:31] LABS: HEMOGLOBIN A1b 0.8 %; HEMOGLOBIN Ao 84.1 %; HEMOGLOBIN LA1C 1.9 %; HEMOGLOBIN P3 4.2 %
--- NOTE | 2016-12-28 14:04 | EKG ---
Date Performed: 12/27/2016 Time Performed: 15:59:22 PTAGE: 41 years EKG: Sinus rhythm POSSIBLE LEFT ATRIAL ENLARGEMENT MODERATE T-WAVE ABNORMALITY, CONSIDER LATERAL ISCHEMIA ABNORMAL ECG PREVIOUS TRACING : 12/27/2016 10.19 DOCTOR: Amor Adame Interpretating Date/Time 12/28/2016 13:56:59
--- NOTE | 2016-12-28 14:12 | EKG ---
Date Performed: 12/27/2016 Time Performed: 10:19:55 PTAGE: 41 years EKG: SINUS TACHYCARDIA POSSIBLE LEFT ATRIAL ENLARGEMENT NONSPECIFIC T-WAVE ABNORMALITY ABNORMAL ECG INTERPRETATION BASED ON A DEFAULT AGE OF 38 YEARS NO PREVIOUS TRACING DOCTOR: Amor Aadme Interpretating Date/Time 12/28/2016 14:02:03
--- NOTE | 2016-12-28 15:11 | RADRPT ---
EXAM DATE/TIME: 12/28/2016 14:57 [facility] COMPARISON: No previous studies available for comparison. INDICATIONS : Post thoracentesis. MEDICAL HISTORY : Cardiomyopathy. SURGICAL HISTORY : None. ENCOUNTER: Initial ACUITY: 1 day PAIN SCORE: 10/24 LOCATION: Right chest FINDINGS: The heart size is enlarged. There is increased density at the right base the silhouetting of the righ t hemidiaphragm. There some linear density medial left base. A pneumothorax is not seen. CONCLUSION: Increased density at the right base representing consolidation, atelectasis, and some possible mild r esidual effusion. A pneumothorax is not seen. Eddy Moffett MD on December 28, 2016 at 15:07 Board Certified Radiologist. This report was verified electronically.
--- NOTE | 2016-12-28 15:57 | RADRPT ---
EXAM DATE/TIME: 12/28/2016 14:02 [facility] COMPARISON: No previous studies available for comparison. TECHNIQUE: 1. Ultrasound guidance for thoracentesis. 2. Thoracentesis. The risks, benefits, and alternatives to ultrasound guided thoracentesis were explained to the patien t in lay simple terms, including the risk of bleeding and infection. Written and verbal informed con sent was obtained. Appropriate area for thoracentesis was marked under ultrasound guidance with the patient in the uprig ht position. Overlying skin was prepped and draped in the usual sterile fashion and with local anest hetic, a dermatotomy was made with an 11 blade scalpel. A 6 Swiss thoracentesis catheter was placed in the pleural space and fluid was removed. Approximately 7 cc of hemorrhagic fluid was removed and sent for culture . I could not remove darryl ve and more fluid after repostioning the needle. This may all be clotted blood. Catheter was then removed and a sterile dressing applied. There were no immediate complications. The patient tolerated the procedure well and the left the ultrasound suite in stable condition. Chest r adiograph is to be obtained. CONCLUSION: Uncomplicated ultrasound guided thoracentesis. Only 10 cc were removed and sent for culture. Terry Duarte MD FACR on December 28, 2016 at 15:51 Board Certified Radiologist. This report was verified electronically.
[2016-12-28 16:01] LABS: PLEURAL FLUID PH 8.5
[2016-12-28 16:08] LABS: GLUCOSE,PLEURAL FLUID 7 MG/DL; TOTAL PROTEIN,PLEURAL FLUID 0.8 GM/DL
[2016-12-28 16:56] LABS: PLEURAL FLUID LYMPHS 40 %
--- NOTE | 2016-12-28 18:27 | PD.CARD.PN ---
Subjective Subjective Remarks No CP, SOB and edema improving Objective Medications Current Medications Medications (Trade) Dose Ordered Sig/Yo Route Start Time Stop Time Status Last Admin (NS Flush) 2 ml UNSCH PRN FLUSH 12/27/16 14:15 12/27/16 22:43 (NS Flush) 2 ml BID FLUSH 12/27/16 21:00 12/28/16 08:47 (Zofran Inj) 4 mg Q6H PRN IVP 12/27/16 14:15 12/27/16 22:43 (Tylenol) 650 mg Q6H PRN PO 12/27/16 14:15 (Narcan Inj) 0.4 mg UNSCH PRN IV 12/27/16 14:15 (Apresoline) 10 mg Q6HR PRN PO 12/27/16 14:30 12/27/16 22:43 (Bumex Inj) 2 mg DAILY IV PUSH 12/27/16 17:15 12/28/16 08:46 (Vasotec Inj) 1.25 mg Q6H PRN IV 12/27/16 18:15 (Coreg) 25 mg Q12HR PO 12/27/16 21:00 12/28/16 08:47 (Prinivil) 5 mg DAILY PO 12/28/16 09:00 12/28/16 08:45 (Protonix) 20 mg DAILY PO 12/28/16 09:00 12/28/16 11:35 Vital Signs / I&O Vital Signs Date Time Temp Pulse Resp B/P Pulse Ox O2 Delivery O2 Flow Rate FiO2 12/28/16 17:31 76 12/28/16 16:46 72 12/28/16 15:15 74 18 108/78 95 12/28/16 15:00 98.0 74 18 107/74 99 12/28/16 15:00 75 12/28/16 15:00 97.7 74 18 127/90 100 12/28/16 13:32 73 12/28/16 12:28 75 12/28/16 11:41 97.9 75 18 124/60 100 12/28/16 11:00 78 12/28/16 10:00 73 12/28/16 09:00 75 12/28/16 08:48 98 Nasal Cannula 3.50 12/28/16 08:00 70 12/28/16 07:51 78 12/28/16 07:00 98.1 75 16 141/60 100 12/28/16 06:00 70 12/28/16 05:00 72 12/28/16 04:00 70 12/28/16 03:00 69 12/28/16 03:00 98.1 69 18 117/81 98 12/28/16 02:00 76 12/28/16 01:00 78 12/28/16 00:00 76 12/27/16 23:00 98.0 75 18 138/105 100 12/27/16 23:00 80 12/27/16 22:00 74 12/27/16 21:45 21 12/27/16 20:45 97.9 96 18 158/120 100 12/27/16 20:34 98.1 97 18 153/110 100 Room Air 12/27/16 19:15 97 18 168/124 98 Room Air I/O 12/27/16 12/27/16 12/27/16 12/28/16 12/28/16 12/28/16 07:00 15:00 23:00 07:00 15:00 23:00 Intake Total 240 ml 800 ml Output Total 650 ml 1600 ml Balance -410 ml -800 ml Intake Oral 240 ml 800 ml Output Urine Total 650 ml 1600 ml # Bowel Movements 1 2 Physical Exam GENERAL: SKIN: Warm and dry. HEAD: Normocephalic. EYES: No scleral icterus. No injection or drainage. NECK: Supple, trachea midline. No JVD or lymphadenopathy. CARDIOVASCULAR: Regular rate and rhythm without murmurs, gallops, or rubs. RESPIRATORY: Breath sounds equal bilaterally. No accessory muscle use. Decreased BS at bases, GASTROINTESTINAL: Abdomen soft, non-tender, nondistended. MUSCULOSKELETAL: No cyanosis, 2+ edema. Laboratory Laboratory Tests Test 12/27/16 12/28/16 12/28/16 22:18 06:05 14:40 Hemoglobin A1c 6.7 % Total Creatine Kinase 127 U/L Troponin I 0.33 NG/ML Total Protein 5.2 GM/DL 4.9 GM/DL Sodium Level 144 MEQ/L Potassium Level 3.7 MEQ/L Chloride Level 108 MEQ/L Carbon Dioxide Level 27.5 MEQ/L Anion Gap 9 MEQ/L Blood Urea Nitrogen 20 MG/DL Creatinine 1.74 MG/DL Estimat Glomerular Filtration 52 ML/MIN Rate Random Glucose 110 MG/DL Calcium Level 8.3 MG/DL Total Bilirubin 1.2 MG/DL Aspartate Amino Transf 18 U/L (AST/SGOT) Alanine Aminotransferase 35 U/L (ALT/SGPT) Alkaline Phosphatase 56 U/L Albumin 2.5 GM/DL Pleural Fluid pH 8.5 Pleural Fluid WBC 191 /MM3 Pleural Fluid RBC 64 /MM3 Pleural Fluid Neutrophils 5 % Pleural Fluid Lymphocytes 40 % Pleural Fluid Monocytes 55 % Pleural Fluid Total Protein 0.8 GM/DL Pleural Fluid LDH 864 U/L Pleural Fluid Glucose 7 MG/DL Pleural Fluid Amylase LESS THAN 2 U/L Imaging Last Impressions Thoracentesis Ultrasound 12/28/16 0000 Signed Impressions: Service Date/Time: December 14:02 - CONCLUSION: Uncomplicated ultrasound guided thoracentesis. Only 10 cc were removed and sent for culture. Terry Duarte MD FACR Chest X-Ray 12/28/16 0000 Signed Impressions: Service Date/Time: December 14:57 - CONCLUSION: Increased density at the right base representing consolidation, atelectasis, and some possible mild residual effusion. A pneumothorax is not seen. Eddy Moffett MD Abdomen/Pelvis CT 12/27/16 1015 Signed Impressions: Service Date/Time: Tuesday, December 27, 2016 12:02 - CONCLUSION: Umbilical hernia containing an air filled loop of intestine. There is no evidence of obstruction or incarceration. Anasarca and edematous changes in the retroperitoneum as described. Smaller moderate right pleural effusion and mild cardiomegaly. No evidence of inflammatory bowel disease, hydronephrosis, pancreatitis or cholecystitis. Antony Zuniga MD Lower Extremity Ultrasound 12/27/16 0000 Signed Impressions: Service Date/Time: Tuesday, December 27, 2016 11:12 - CONCLUSION: No DVT. Eddy Moffett MD Assessment and Plan Problem List: (1) Acute exacerbation of CHF (congestive heart failure) (2) Acute renal insufficiency (3) Cardiomyopathy (4) HTN (hypertension) Assessment and Plan Continue and titrate tx for CHF including beta jt, NELLY-I and diuresis. Monitor renal fx. Responding to diuresis. Increase activity. Problem Qualifiers (1) Cardiomyopathy: Qualified Code: I42.9 - Cardiomyopathy, unspecified type Quadrat,Otakar MD Dec 28, 2016 18:27
[2016-12-28] MEDS: ACETAMINOPHEN 325 MG TAB PO PRN (21:24)
[2016-12-28 22:34] LABS: ALBUMIN SPE 2.93 GM/DL (3.50-5.00); ALPHA 1 GLOBULIN 0.22 GM/DL (0.11-0.29); ALPHA 2 GLOBULIN 0.62 GM/DL (0.22-1.00); BETA GLOBULINS (SPE) 0.62 GM/DL (0.53-1.03)
[2016-12-29] VITALS (28 sets, daily range): BP systolic 104–132; BP diastolic 74–110; PULSE 65–82; RESP 16–20; TEMP 97.6–98.6; O2SAT 96–99
[2016-12-29 06:09] LABS: BICARBONATE 27.1 MEQ/L (21.0-32.0); POTASSIUM 3.6 MEQ/L (3.5-5.1)
[2016-12-29] MEDS: CARVEDILOL 12.5 MG TAB PO SCH ×2 (08:32→21:30)
[2016-12-29] MEDS: SODIUM CHLORIDE 0.9% FLUSH 5 ML FLUSH FLUSH SCH ×2 (08:35→21:31)
[2016-12-29] MEDS: BUMETANIDE INJ 1 MG/4 ML VIAL IV PUSH SCH (08:35)
[2016-12-29] MEDS: PANTOPRAZOLE SOD 20 MG DELAYED RELEASE TAB PO SCH (08:36)
[2016-12-29] MEDS: LISINOPRIL 5 MG TAB PO SCH (08:36)
--- NOTE | 2016-12-29 09:47 | HHI.FPPN ---
Subjective Remarks No acute events overnight. Vital signs unremarkable. This morning he states he continues to improve with this respiratory status. (Smiley Lowe MD R2) Objective Vitals Vital Signs Date Time Temp Pulse Resp B/P Pulse Ox O2 Delivery O2 Flow Rate FiO2 12/29/16 08:42 80 12/29/16 07:30 98.6 78 20 132/110 99 12/29/16 07:18 72 12/29/16 06:02 73 12/29/16 05:00 71 12/29/16 04:00 68 12/29/16 03:00 69 12/29/16 03:00 98.0 69 18 117/87 99 12/29/16 02:54 74 12/29/16 02:09 70 12/29/16 01:07 65 12/29/16 00:00 67 12/28/16 23:00 71 12/28/16 23:00 98.3 71 18 106/73 98 12/28/16 22:00 71 12/28/16 21:00 76 12/28/16 20:00 98.2 78 16 121/81 98 12/28/16 20:00 76 12/28/16 19:25 93 21 12/28/16 19:00 74 12/28/16 18:37 72 12/28/16 17:31 76 12/28/16 16:46 72 12/28/16 15:15 74 18 108/78 95 12/28/16 15:00 98.0 74 18 107/74 99 12/28/16 15:00 75 12/28/16 15:00 97.7 74 18 127/90 100 12/28/16 13:32 73 12/28/16 12:28 75 12/28/16 11:41 97.9 75 18 124/60 100 12/28/16 11:00 78 12/28/16 10:00 73 I/O 12/28/16 12/28/16 12/28/16 12/29/16 12/29/16 12/29/16 07:00 15:00 23:00 07:00 15:00 23:00 Intake Total 240 ml 800 ml 480 ml Output Total 650 ml 1600 ml 300 ml Balance -410 ml -800 ml 180 ml Intake Oral 240 ml 800 ml 480 ml Output Urine Total 650 ml 1600 ml 300 ml # Bowel Movements 1 2 (Smiley Lowe MD R2) Result Diagram: 12/27/16 1020 12/29/16 0520 Objective Remarks GEN: Well-developed, well-nourished patient. Sitting in chair. No acute distress. CV: Regular rate and rhythm without obvious murmurs LUNGS: Clear to auscultation bilaterally. Normal respiratory effort. No wheezes , rales, rhonchi. EXT: 2+ pitting edema up to knees on left leg and 3+ pitting edema up to knees on right leg. No edema. No calf tenderness. NEURO/PSYCH: Awake, alert. Appropriate insight and judgment. Normal speech. Normal gait. (Smiley Lowe MD R2) A/P Assessment and Plan 41-year-old male with PMH significant for cardiomyopathy and HTN, pleural effusion and significant anasarca and peripheral edema Discharge Planning 1-2 days pending clearance by nephrology (Smiley Lowe MD R2) Attending Attestation Patient seen and examined. Case reviewed and discussed with the resident team. Agree with plan of care as discussed with me and documented in the resident note. (Flakita Cameron MD) Problem List: (1) Cardiomyopathy Status: Acute Plan: History significant for cardiomyopathy. Associated with progressive shortness of breath, abdominal bloating, lower extremity swelling over the last month. Has been on NELLY inhibitor in the past but none recently due to financial issues. -Continue diuresis -BNP elevated at 1025 -ACS evaluation * Troponin elevated likely due to cardiomyopathy and CKD as there is no acute chest pain -Echo: EF of 20%, mildly dilated left atrium. -ALPA santizo Cardiology consulted: Appreciate recommendations, low-dose nelly has been initiated * Continue Beta jt, NELLY-I and diuresis. Increase activity Medications: * Bumex 2mg daily * Coreg 25mg BID * Lisinopril 5mg daily (2) SOB (shortness of breath) Status: Acute Plan: Etiology unclear but likely due to cardiomyopathy. -Diuresis as above -No DVT on lower extremity ultrasound -Diagnostic pleurocentesis * Pleural WBC and RBC elevated * Pleural LDH 864 * Ratio of of pleural LDH and serum LDH is >0.6 which is indicative of exudative , will discuss with attending about this result and further management (after discussion, VQ scan ordered for eval of PE) * Pleural cultures pending * Pleural cytology pending Imaging: * CXR: Moderate compensated cardiomegaly without significant failure * Abdominal/pelvis CT: Umbilical hernia without evidence of obstruction or incarceration. Anasarca and edematous changes in the retroperitoneum. Smaller moderate right pleural effusion and mild cardiomegaly. No evidence of IBD, hydronephrosis, pancreatitis, cholecystitis. (3) CKD (chronic kidney disease) Status: Chronic Plan: Suspect patient may have an underlining kidney disease that may have been exacerbated by HTN and cardiomyopathy. No baseline renal function to compare as the patient denies any prior history of renal dysfunction. -UA significant for proteinuria Nephrology consulted: appreciate recommendations * 24 urine protein collection ordered * Considering deposition disease * Patient reports that he may need a renal biopsy (4) DM (diabetes mellitus) Status: Acute Plan: Newly diagnosed diabetes with A1c of 6.7 -Consulted assistant health educator -Due to renal function, metformin is not to be initiated (5) HTN (hypertension) Status: Acute Plan: Hypertensive on admission. -Hydralazine PRN -Low-dose NELLY inhibitor and Coreg has been initiated (6) Nutrition, metabolism, and development symptoms Status: Acute Plan: Diet: Heart healthy with salt and fluid restrictions Electrolytes: Unremarkable Fluids: None DVT prophylaxis: SCDs for now, may be getting a renal biopsy GI prophylaxis: Omeprazole to help with bloating (Smiley Lowe MD R2) Problem Qualifiers (1) Cardiomyopathy: Qualified Code: I42.9 - Cardiomyopathy, unspecified type (2) DM (diabetes mellitus): Smiley Lowe MD R2 Dec 29, 2016 09:47 Flakita Cameron MD Dec 29, 2016 13:54
--- NOTE | 2016-12-29 11:22 | HHI.NPPN ---
Subjective General Problems: Edema Renal Failure: Chronic, Acute Interval History Resting comfortably. 24 hr urine collection in process. Fluid overload persists. Renal function slightly worse. (Citlaly Clinton) Review of Systems General Constitutional: Fatigue (Citlaly Clinton) Respiratory Lungs: SOB (Citlaly Clinton) Cardiovascular Cardiac: Chest Pain, Edema, WOOTEN (Citlaly Clinton) Objective Data Data 12/28/16 12/29/16 19:00 07:00 Intake Total 800 ml 480 ml Output Total 1600 ml 300 ml Balance -800 ml 180 ml Intake Oral 800 ml 480 ml Output Urine Total 1600 ml 300 ml # Bowel Movements 2 Vital Signs Date Time Temp Pulse Resp B/P Pulse Ox O2 Delivery O2 Flow Rate FiO2 12/29/16 10:29 97 Nasal Cannula 21 12/29/16 10:10 77 12/29/16 09:00 80 12/29/16 08:42 80 12/29/16 07:30 98.6 78 20 132/110 99 12/29/16 07:18 72 12/29/16 06:02 73 12/29/16 05:00 71 12/29/16 04:00 68 12/29/16 03:00 69 12/29/16 03:00 98.0 69 18 117/87 99 12/29/16 02:54 74 12/29/16 02:09 70 12/29/16 01:07 65 12/29/16 00:00 67 12/28/16 23:00 71 12/28/16 23:00 98.3 71 18 106/73 98 12/28/16 22:00 71 12/28/16 21:00 76 12/28/16 20:00 98.2 78 16 121/81 98 12/28/16 20:00 76 12/28/16 19:25 93 21 12/28/16 19:00 74 12/28/16 18:37 72 12/28/16 17:31 76 12/28/16 16:46 72 12/28/16 15:15 74 18 108/78 95 12/28/16 15:00 98.0 74 18 107/74 99 12/28/16 15:00 75 12/28/16 15:00 97.7 74 18 127/90 100 12/28/16 13:32 73 12/28/16 12:28 75 12/28/16 11:41 97.9 75 18 124/60 100 (Citlaly Clinton) -: 12/27/16 1020 12/29/16 0520 Microbiology 12/28/16 Gram Stain - Final, Resulted 12/28/16 Body Fluid Culture - Preliminary, Resulted NO GROWTH IN 24 HOURS. 12/28/16 Acid Fast Stain, Received Pending 12/28/16 Mycobacterial Culture, Received Pending 12/28/16 Fungal Smear - Final, Resulted NO FUNGAL ELEMENTS SEEN. 12/28/16 Fungal Culture, Resulted Pending Imaging Last 72 hours Impressions Thoracentesis Ultrasound 12/28/16 0000 Signed Impressions: Service Date/Time: December 14:02 - CONCLUSION: Uncomplicated ultrasound guided thoracentesis. Only 10 cc were removed and sent for culture. Terry Duarte MD FACR Chest X-Ray 12/28/16 0000 Signed Impressions: Service Date/Time: December 14:57 - CONCLUSION: Increased density at the right base representing consolidation, atelectasis, and some possible mild residual effusion. A pneumothorax is not seen. Eddy Moffett MD Chest X-Ray 12/27/16 1015 Signed Impressions: Service Date/Time: Tuesday, December 27, 2016 10:24 - CONCLUSION: Moderate compensated cardiomegaly without significant failure. Terry Duarte MD FACR Abdomen/Pelvis CT 12/27/16 1015 Signed Impressions: Service Date/Time: Tuesday, December 27, 2016 12:02 - CONCLUSION: Umbilical hernia containing an air filled loop of intestine. There is no evidence of obstruction or incarceration. Anasarca and edematous changes in the retroperitoneum as described. Smaller moderate right pleural effusion and mild cardiomegaly. No evidence of inflammatory bowel disease, hydronephrosis, pancreatitis or cholecystitis. Antony Zuniga MD Lower Extremity Ultrasound 12/27/16 0000 Signed Impressions: Service Date/Time: Tuesday, December 27, 2016 11:12 - CONCLUSION: No DVT. Eddy Moffett MD (Citlaly Clinton) Physical Exam General Appearance: Well Developed, Well Nourished, No Acute Distress, Comfortable ( Citlaly Clinton B. INSPECTION CLERK) Eyes Eye Exam: Pupils Equal, Pupils Reactive, Sclera White, Extraocular Movement Intact (Citlaly Clinton B. INSPECTION CLERK) Ears & Nose Ears & Nose Exam: Tympanic Membranes Normal (Citlaly Clinton B. INSPECTION CLERK) Throat Throat Exam: Oral Mucosa [place] & Moist (Citlaly Clinton B. INSPECTION CLERK) Neck Neck Exam: Neck Supple, Trachea Midline (Citlaly Clinton B. INSPECTION CLERK) Pulmonary Resp Exam: Clear Bilaterally, Breath Sounds Equal, No Distress (Citlaly Clinton B. INSPECTION CLERK) Cardiology CV Exam: Regular, Normal Sinus Rhythm (Citlaly Clinton B. INSPECTION CLERK) Gastrointestinal/Abdomen GI Exam: Soft, Non-Tender, Bowel Sounds Present, No Hepatosplenomegaly ( Citlaly Clinton B. INSPECTION CLERK) Musculoskeletal MS Exam: Joints Intact, Normal Gait (Citlaly Clinton B. INSPECTION CLERK) Integumentary Skin Exam: Intact (Citlaly Clinton. INSPECTION CLERK) Extremeties Extremities Exam: Moderate Edema, Dependent Edema (Citlaly Clinton B. INSPECTION CLERK) Neurologic Neuro Exam: Alert, Awake, Oriented, Speech Clear, Moving All Extremities ( Citlaly Clinton. INSPECTION CLERK) Psychiatric Psych Exam: Appropriate Responses (Citlaly Clinton) Assessment/Plan Discussed Condition With: Patient Assessment Summary: Fluid/Volume Overload, Hypertension, Diabetes Mellitus Problem List: (1) FAY (acute kidney injury) Plan: may have cardiorenal syndrome. Baseline renal function is not known, although he presented with proteinuria. Microalbumin/creatinine ratio: 438 mg/gram.; 24 hour urine collection for protein estimation in process Serologies ordered, pending. SPEP and urine immunofixation are negative complement levels are normal Elevated creatinine may be due to aggressive diuresis electrolytes okay fluid overload persists, on Bumex he does have good urine output avoid nephrotoxins, daily renal panel if renal function worsens, considering holding NELLY (2) HTN (hypertension) Plan: Currently on Carvedilol and Lisinopril. BP responds well to medications (3) Cardiomyopathy Plan: Etiology is unclear. Non ischemic cardiomyopathy vs ischemic etiology. Mild elevation in Troponin. cardiology has evaluated Consider deposition diseases. On NELLY, BB, diuretics avoid IVF (4) DM (diabetes mellitus) Plan: A1c 6.7, he is not on insulin no hx of previous diagnosis (Citlaly Clinton) Plan patient was seen and examined. Agree with above assessment and plan. (Etienne Terry MD) Problem Qualifiers (1) HTN (hypertension): Qualified Code: I15.9 - Secondary hypertension (2) Cardiomyopathy: Qualified Code: I42.9 - Cardiomyopathy, unspecified type (3) DM (diabetes mellitus): Citlaly Clinton Dec 29, 2016 11:22 Etienne Terry MD Dec 31, 2016 17:20
--- NOTE | 2016-12-29 14:45 | RADRPT ---
EXAM DATE/TIME: 12/29/2016 12:25 [facility] COMPARISON: CT ABDOMEN & PELVIS W/O CONTRAST, December 27, 2016, 12:02. CHEST SINGLE AP, December 27, 2016, 10:24. [facility] EST EXPIRATION ONLY, December 28, 2016, 14:57. INDICATIONS : Dyspnea. DOSE: 1.2 mCi Tc99m DTPA 8.8 mCi Tc99m MAA MEDICAL HISTORY : Diabetes mellitus type 2. Hypertension. Renal insufficiency, chronic. Cardiomyopathy. SURGICAL HISTORY : Total knee replacement, left. ENCOUNTER: Initial ACUITY: 1 day PAIN SCALE: 0/10 LOCATION: chest TECHNIQUE: Following five minutes of tidal breathing of DTPA aerosol, planar images of the lungs were performed in eight projections. The patient was then injected with MAA, and eight-view perfusion scan was perf ormed. FINDINGS: There are small subsegmental defects seen at the periphery of the mid and lower left and right lungs. These appear matched. There is a perfusion defect at the right upper lung at the apex and at the pos terior left upper lung. These are not matched on the ventilation study. CONCLUSION: Subsegmental defects some of which are matched and some are not. This is an intermediate probability for pulmonary embolus. Eddy Moffett MD on December 29, 2016 at 14:32 Board Certified Radiologist. This report was verified electronically.
--- NOTE | 2016-12-29 16:35 | PD.CARD.PN ---
Subjective Subjective Remarks No CP, SOB improving, still has edema, feels tired Objective Medications Current Medications Medications (Trade) Dose Ordered Sig/Yo Route Start Time Stop Time Status Last Admin (NS Flush) 2 ml UNSCH PRN FLUSH 12/27/16 14:15 12/27/16 22:43 (NS Flush) 2 ml BID FLUSH 12/27/16 21:00 12/29/16 08:35 (Zofran Inj) 4 mg Q6H PRN IVP 12/27/16 14:15 12/27/16 22:43 (Tylenol) 650 mg Q6H PRN PO 12/27/16 14:15 12/28/16 21:24 (Narcan Inj) 0.4 mg UNSCH PRN IV 12/27/16 14:15 (Apresoline) 10 mg Q6HR PRN PO 12/27/16 14:30 12/27/16 22:43 (Bumex Inj) 2 mg DAILY IV PUSH 12/27/16 17:15 12/29/16 08:35 (Vasotec Inj) 1.25 mg Q6H PRN IV 12/27/16 18:15 (Coreg) 25 mg Q12HR PO 12/27/16 21:00 12/29/16 08:32 (Prinivil) 5 mg DAILY PO 12/28/16 09:00 12/29/16 08:36 (Protonix) 20 mg DAILY PO 12/28/16 09:00 12/29/16 08:36 Vital Signs / I&O Vital Signs Date Time Temp Pulse Resp B/P Pulse Ox O2 Delivery O2 Flow Rate FiO2 12/29/16 12:44 79 12/29/16 11:00 97.6 73 18 104/74 96 12/29/16 11:00 69 12/29/16 10:29 97 Nasal Cannula 21 12/29/16 10:10 77 12/29/16 09:00 80 12/29/16 08:42 80 12/29/16 07:30 98.6 78 20 132/110 99 12/29/16 07:18 72 12/29/16 06:02 73 12/29/16 05:00 71 12/29/16 04:00 68 12/29/16 03:00 69 12/29/16 03:00 98.0 69 18 117/87 99 12/29/16 02:54 74 12/29/16 02:09 70 12/29/16 01:07 65 12/29/16 00:00 67 12/28/16 23:00 71 12/28/16 23:00 98.3 71 18 106/73 98 12/28/16 22:00 71 12/28/16 21:00 76 12/28/16 20:00 98.2 78 16 121/81 98 12/28/16 20:00 76 12/28/16 19:25 93 21 12/28/16 19:00 74 12/28/16 18:37 72 12/28/16 17:31 76 12/28/16 16:46 72 I/O 12/28/16 12/28/16 12/28/16 12/29/16 12/29/16 12/29/16 07:00 15:00 23:00 07:00 15:00 23:00 Intake Total 240 ml 800 ml 480 ml Output Total 650 ml 1600 ml 300 ml Balance -410 ml -800 ml 180 ml Intake Oral 240 ml 800 ml 480 ml Output Urine Total 650 ml 1600 ml 300 ml # Bowel Movements 1 2 Physical Exam GENERAL: In NAD SKIN: Warm and dry. HEAD: Normocephalic. EYES: No scleral icterus. No injection or drainage. NECK: Supple, trachea midline. No JVD or lymphadenopathy. CARDIOVASCULAR: Regular rate and rhythm without murmurs, gallops, or rubs. RESPIRATORY: Breath sounds equal bilaterally. No accessory muscle use. Decreased BS at bases, GASTROINTESTINAL: Abdomen soft, non-tender, nondistended. MUSCULOSKELETAL: No cyanosis, 2+ edema. Laboratory Laboratory Tests Test 12/29/16 05:20 Sodium Level 142 MEQ/L Potassium Level 3.6 MEQ/L Chloride Level 106 MEQ/L Carbon Dioxide Level 27.1 MEQ/L Anion Gap 9 MEQ/L Blood Urea Nitrogen 24 MG/DL Creatinine 1.97 MG/DL Estimat Glomerular Filtration 45 ML/MIN Rate Random Glucose 110 MG/DL Calcium Level 8.1 MG/DL Lactate Dehydrogenase 220 U/L Imaging Last Impressions Lung Scan-VQ Nuclear Medicine 12/29/16 0000 Signed Impressions: Service Date/Time: Thursday, December 29, 2016 12:25 - CONCLUSION: Subsegmental defects some of which are matched and some are not. This is an intermediate probability for pulmonary embolus. Eddy Moffett MD Thoracentesis Ultrasound 12/28/16 0000 Signed Impressions: Service Date/Time: December 14:02 - CONCLUSION: Uncomplicated ultrasound guided thoracentesis. Only 10 cc were removed and sent for culture. Terry Duarte MD FACR Chest X-Ray 12/28/16 0000 Signed Impressions: Service Date/Time: December 14:57 - CONCLUSION: Increased density at the right base representing consolidation, atelectasis, and some possible mild residual effusion. A pneumothorax is not seen. Eddy Moffett MD Abdomen/Pelvis CT 12/27/16 1015 Signed Impressions: Service Date/Time: Tuesday, December 27, 2016 12:02 - CONCLUSION: Umbilical hernia containing an air filled loop of intestine. There is no evidence of obstruction or incarceration. Anasarca and edematous changes in the retroperitoneum as described. Smaller moderate right pleural effusion and mild cardiomegaly. No evidence of inflammatory bowel disease, hydronephrosis, pancreatitis or cholecystitis. Antony Zuniga MD Lower Extremity Ultrasound 12/27/16 0000 Signed Impressions: Service Date/Time: Tuesday, December 27, 2016 11:12 - CONCLUSION: No DVT. Eddy Moffett MD Assessment and Plan Problem List: (1) Acute exacerbation of CHF (congestive heart failure) (2) Acute renal insufficiency (3) Cardiomyopathy (4) HTN (hypertension) Assessment and Plan Continue and titrate tx for CHF including beta jt, NELLY-I and diuresis. Monitor renal fx. Responding to diuresis, but still has significant edema. Nephrology evaluation in progress. Increase activity. Problem Qualifiers (1) Cardiomyopathy: Qualified Code: I42.9 - Cardiomyopathy, unspecified type Jin Wetzel MD Dec 29, 2016 16:35
[2016-12-29] MEDS: ONDANSETRON HCL 4 MG/2 ML VIAL IVP PRN (21:31)
[2016-12-29 22:43] LABS: URINE TOTAL PROTEIN TIMED 12.6 MG/DL
[2016-12-30] VITALS (29 sets, daily range): BP systolic 110–131; BP diastolic 66–93; PULSE 53–84; RESP 16–20; TEMP 97.9–98.8; O2SAT 95–100
[2016-12-30] MEDS: ACETAMINOPHEN 325 MG TAB PO PRN ×2 (00:54→21:56)
[2016-12-30 06:55] LABS: BICARBONATE 26.7 MEQ/L (21.0-32.0); POTASSIUM 3.4 MEQ/L (3.5-5.1)
[2016-12-30] MEDS ORDERED: POTASSIUM CHLORIDE 10 MEQ CAP PO ONE (08:00)
[2016-12-30] MEDS ORDERED: CALCIUM CARBONATE 1.25 GM (CA 500 MG) TAB PO ONE (08:00)
[2016-12-30] MEDS: SODIUM CHLORIDE 0.9% FLUSH 5 ML FLUSH FLUSH SCH ×2 (09:00→21:57)
[2016-12-30] MEDS: CARVEDILOL 12.5 MG TAB PO SCH ×2 (09:26→21:57)
[2016-12-30] MEDS: LISINOPRIL 10 MG TAB PO SCH (09:26)
[2016-12-30] MEDS: PANTOPRAZOLE SOD 20 MG DELAYED RELEASE TAB PO SCH (09:26)
[2016-12-30] MEDS: BUMETANIDE INJ 1 MG/4 ML VIAL IV PUSH SCH (09:26)
--- NOTE | 2016-12-30 09:31 | HHI.FPPN ---
Subjective Remarks Patient seen and examined this morning. No acute events overnight. Pt reports feeling same as yesterday. States his breathing is improved, edema is stable. He has been trying to get out of bed and keep legs elevated. No chest pain, abdominal pain. (Shawn Zamorano MD R1) Objective Vitals Vital Signs Date Time Temp Pulse Resp B/P Pulse Ox O2 Delivery O2 Flow Rate FiO2 12/30/16 08:12 98.5 78 20 131/93 100 12/30/16 06:00 72 12/30/16 05:00 72 12/30/16 04:00 72 12/30/16 03:38 73 16 121/85 95 12/30/16 03:00 76 12/30/16 02:00 70 12/30/16 01:00 76 12/30/16 00:56 82 16 123/75 99 12/30/16 00:00 78 12/29/16 23:29 77 16 130/91 97 12/29/16 23:00 79 12/29/16 22:00 76 12/29/16 21:00 78 12/29/16 20:00 82 12/29/16 19:30 98.6 81 18 117/88 99 12/29/16 19:17 98 Nasal Cannula 2.00 12/29/16 19:00 78 12/29/16 18:16 77 12/29/16 17:51 77 12/29/16 16:31 77 12/29/16 15:00 73 12/29/16 15:00 98.2 76 16 114/82 97 12/29/16 12:44 79 12/29/16 11:00 97.6 73 18 104/74 96 12/29/16 11:00 69 12/29/16 10:29 97 Nasal Cannula 21 12/29/16 10:10 77 I/O 12/29/16 12/29/16 12/29/16 12/30/16 12/30/16 12/30/16 07:00 15:00 23:00 07:00 15:00 23:00 Intake Total 480 ml 720 ml 300 ml Output Total 300 ml 1101 ml 331 ml Balance 180 ml -381 ml -31 ml Intake Oral 480 ml 720 ml 300 ml IV Total 0 ml Output Urine Total 300 ml 1100 ml 330 ml Stool Total 1 ml 1 ml # Bowel Movements 0 (Shawn Zamorano MD R1) Result Diagram: 12/27/16 1020 12/30/16 0533 Objective Remarks GEN: Well-developed, well-nourished patient. Sitting in chair. No acute distress. CV: Regular rate and rhythm without obvious murmurs LUNGS: Clear to auscultation bilaterally. No wheezes, rales, rhonchi. EXT: 2+ pitting edema up to knees on left leg and 3+ pitting edema up to knees on right leg. No calf tenderness. NEURO/PSYCH: Awake, alert. Appropriate insight and judgment. Normal speech. ( Shawn Zamorano MD R1) A/P Assessment and Plan 41-year-old male with PMH significant for cardiomyopathy and HTN, pleural effusion and significant anasarca and peripheral edema Discharge Planning 1-2 days pending clearance by nephrology dw Dr. Cameron (Shawn Zamorano MD R1) Attending Attestation Respirations 30/min at rest. Patient seen and examined. Case reviewed and discussed with the resident team. Agree with plan of care as discussed with me and documented in the resident note. (Flakita Cameron MD) Problem List: (1) Cardiomyopathy Status: Acute Plan: History significant for cardiomyopathy. Associated with progressive shortness of breath, abdominal bloating, lower extremity swelling over the last month. Has been on NELLY inhibitor in the past but none recently due to financial issues. -Continue diuresis -BNP elevated at 1025 -ACS evaluation * Troponin elevated likely due to cardiomyopathy and CKD as there is no acute chest pain -Echo: EF of 20%, mildly dilated left atrium. -ALPA santizo Cardiology consulted: Appreciate recommendations, low-dose nelly has been initiated * Continue Beta jt, NELLY-I and diuresis. Increase activity Medications: * Bumex 2mg daily * Decreased Coreg to 12.5mg BID * Increased Lisinopril 10mg daily (2) SOB (shortness of breath) Status: Acute Plan: Etiology unclear but likely due to cardiomyopathy. Improving. -Diuresis as above -No DVT on lower extremity ultrasound -Diagnostic pleurocentesis * Pleural WBC and RBC elevated * Pleural LDH 864 * Ratio of of pleural LDH and serum LDH is >0.6 which is indicative of exudative -V/Q scan indeterminate. Asymptomatic. Possibly significant for previous PE. No need for anticoagulation at this time. * Pleural cultures NGTD * Pleural cytology pending Imaging: * CXR: Moderate compensated cardiomegaly without significant failure * Abdominal/pelvis CT: Umbilical hernia without evidence of obstruction or incarceration. Anasarca and edematous changes in the retroperitoneum. Smaller moderate right pleural effusion and mild cardiomegaly. No evidence of IBD, hydronephrosis, pancreatitis, cholecystitis. (3) CKD (chronic kidney disease) Status: Chronic Plan: Suspect patient may have an underlining kidney disease that may have been exacerbated by HTN and cardiomyopathy. No baseline renal function to compare as the patient denies any prior history of renal dysfunction. -UA significant for proteinuria Nephrology consulted: appreciate recommendations * 24 urine protein collection pending * Considering deposition disease * Patient reports that he may need a renal biopsy (4) DM (diabetes mellitus) Status: Acute Plan: Newly diagnosed diabetes with A1c of 6.7 -Consulted software educator -Due to renal function, metformin is not to be initiated -Monitor blood sugars (5) HTN (hypertension) Status: Acute Plan: Hypertensive on admission. -Hydralazine PRN -Low-dose NELLY inhibitor and Coreg as above (6) Nutrition, metabolism, and development symptoms Status: Acute Plan: Diet: Heart healthy with salt and fluid restrictions Electrolytes: monitor and replace as needed Fluids: None DVT prophylaxis: SCDs for now, may be getting a renal biopsy GI prophylaxis: Omeprazole to help with bloating (Shawn Zamorano MD R1) Problem Qualifiers (1) Cardiomyopathy: Qualified Code: I42.9 - Cardiomyopathy, unspecified type (2) CKD (chronic kidney disease): Qualified Code: N18.9 - CKD (chronic kidney disease), unspecified stage (3) DM (diabetes mellitus): (4) HTN (hypertension): Qualified Code: I15.9 - Secondary hypertension Shawn Zamorano MD R1 Dec 30, 2016 09:31 Flakita Cameron MD Dec 30, 2016 13:54
--- NOTE | 2016-12-30 10:38 | HHI.NPPN ---
Subjective General Problems: Edema Renal Failure: Chronic, Acute Additional Remarks Patient is alert, no SOB, feeling better. Review of Systems General Constitutional: Fatigue Respiratory Lungs: SOB Cardiovascular Cardiac: Chest Pain, Edema, WOOTEN Objective Data Data 12/29/16 12/30/16 19:00 07:00 Intake Total 720 ml 300 ml Output Total 1101 ml 331 ml Balance -381 ml -31 ml Intake Oral 720 ml 300 ml IV Total 0 ml Output Urine Total 1100 ml 330 ml Stool Total 1 ml 1 ml # Bowel Movements 0 Vital Signs Date Time Temp Pulse Resp B/P Pulse Ox O2 Delivery O2 Flow Rate FiO2 12/30/16 08:12 98.5 78 20 131/93 100 12/30/16 06:00 72 12/30/16 05:00 72 12/30/16 04:00 72 12/30/16 03:38 73 16 121/85 95 12/30/16 03:00 76 12/30/16 02:00 70 12/30/16 01:00 76 12/30/16 00:56 82 16 123/75 99 12/30/16 00:00 78 12/29/16 23:29 77 16 130/91 97 12/29/16 23:00 79 12/29/16 22:00 76 12/29/16 21:00 78 12/29/16 20:00 82 12/29/16 19:30 98.6 81 18 117/88 99 12/29/16 19:17 98 Nasal Cannula 2.00 12/29/16 19:00 78 12/29/16 18:16 77 12/29/16 17:51 77 12/29/16 16:31 77 12/29/16 15:00 73 12/29/16 15:00 98.2 76 16 114/82 97 12/29/16 12:44 79 12/29/16 11:00 97.6 73 18 104/74 96 12/29/16 11:00 69 -: 12/27/16 1020 12/30/16 0533 Physical Exam General Appearance: Well Nourished, No Acute Distress, Comfortable Eyes Eye Exam: Pupils Equal, Pupils Reactive, Sclera White, Extraocular Movement Intact Ears & Nose Ears & Nose Exam: Tympanic Membranes Normal Throat Throat Exam: Oral Mucosa Riner & Moist Neck Neck Exam: Neck Supple, Trachea Midline Pulmonary Resp Exam: Clear Bilaterally, Breath Sounds Equal, No Distress Cardiology CV Exam: Regular, Normal Sinus Rhythm Gastrointestinal/Abdomen GI Exam: Soft, Non-Tender, Bowel Sounds Present, No Hepatosplenomegaly Musculoskeletal MS Exam: Joints Intact, Normal Gait Integumentary Skin Exam: Intact Extremeties Extremities Exam: Moderate Edema, Pitting Edema, Dependent Edema Neurologic Neuro Exam: Alert, Awake, Oriented, Speech Clear Psychiatric Psych Exam: Appropriate Responses Assessment/Plan Discussed Condition With: Patient Assessment Summary: Fluid/Volume Overload, Hypertension, Diabetes Mellitus Problem List: (1) FAY (acute kidney injury) Plan: may have cardiorenal syndrome. Baseline renal function is not known, although he presented with proteinuria. Microalbumin/creatinine ratio: 438 mg/gram.; 24 hour urine collection for protein is not very high. Serologies ordered, STEVEN is negative, SPEP and urine immunofixation are negative complement levels are normal Elevated creatinine may be due to aggressive diuresis electrolytes okay fluid overload persists, on Bumex he does have good urine output avoid nephrotoxins, daily renal panel Creatinine is slightly better. Continue Bumex, and follow urine out put. (2) HTN (hypertension) Plan: Currently on Carvedilol and Lisinopril. BP responds well to medications (3) Cardiomyopathy Plan: Etiology is unclear. Non ischemic cardiomyopathy vs ischemic etiology. Mild elevation in Troponin. cardiology has evaluated Consider deposition diseases. On NELLY, BB, diuretics avoid IVF (4) DM (diabetes mellitus) Plan: A1c 6.7, he is not on insulin no hx of previous diagnosis Problem Qualifiers (1) HTN (hypertension): Qualified Code: I15.9 - Secondary hypertension (2) Cardiomyopathy: Qualified Code: I42.9 - Cardiomyopathy, unspecified type (3) DM (diabetes mellitus): Mike Duarte MD Dec 30, 2016 10:38
[2016-12-30 15:53] LABS: MYELOPEROXIDASE LESS THAN 1.0 AI (<1.0); PROTEINASE-3 LESS THAN 1.0 AI (<1.0)
[2016-12-30] MEDS: ONDANSETRON HCL 4 MG/2 ML VIAL IVP PRN (21:56)
[2016-12-31] VITALS (14 sets, daily range): BP systolic 103–119; BP diastolic 78–86; PULSE 65–82; RESP 16–20; TEMP 97.6–98.4; O2SAT 95–98
[2016-12-31] MEDS ORDERED: FURO1TAB62 PO (07:56)
[2016-12-31] MEDS ORDERED: POTA10CA PO (07:56)
[2016-12-31] MEDS ORDERED: LISI10TA3 PO (07:56)
[2016-12-31] MEDS ORDERED: CARV12.5 PO (07:56)
[2016-12-31 08:02] LABS: POTASSIUM 3.4 MEQ/L (3.5-5.1)
[2016-12-31] MEDS ORDERED: POTASSIUM CHLORIDE 20 MEQ CONTROLLED RELEASE TAB PO ONE (08:15)
--- NOTE | 2016-12-31 08:16 | HHI.FPPN ---
Subjective Remarks No acute events overnight. Vital signs unremarkable. This morning he states that his breathing continues to improving. No other concerns today. Objective Vitals Vital Signs Date Time Temp Pulse Resp B/P Pulse Ox O2 Delivery O2 Flow Rate FiO2 12/31/16 07:00 77 12/31/16 06:00 73 12/31/16 05:00 69 12/31/16 04:00 68 12/31/16 03:32 98.4 73 20 119/86 97 12/31/16 03:00 65 12/31/16 00:00 77 12/30/16 23:00 98.7 77 20 112/66 95 12/30/16 23:00 73 12/30/16 22:27 97 21 12/30/16 22:00 75 12/30/16 20:00 81 12/30/16 19:00 98.6 80 20 112/86 98 12/30/16 19:00 80 12/30/16 18:00 84 12/30/16 17:00 81 12/30/16 16:26 98.8 72 20 112/79 98 12/30/16 16:00 80 12/30/16 15:00 81 12/30/16 14:00 76 12/30/16 13:00 75 12/30/16 12:00 78 12/30/16 11:26 97.9 77 16 110/72 99 12/30/16 11:00 80 12/30/16 10:00 80 12/30/16 09:00 76 12/30/16 08:12 98.5 78 20 131/93 100 I/O 12/30/16 12/30/16 12/30/16 12/31/16 12/31/16 12/31/16 07:00 15:00 23:00 07:00 15:00 23:00 Intake Total 300 ml 960 ml 400 ml Output Total 331 ml 2525 ml 2 ml Balance -31 ml -1565 ml 398 ml Intake Oral 300 ml 960 ml 400 ml Output Urine Total 330 ml 2525 ml Stool Total 1 ml 2 ml # Bowel Movements 0 1 Result Diagram: 12/27/16 1020 12/31/16 0707 Objective Remarks GEN: Well-developed, well-nourished patient. Laying in bed. No acute distress. CV: Regular rate and rhythm without obvious murmurs LUNGS: Clear to auscultation bilaterally. No wheezes, rales, rhonchi. EXT: 2+ pitting edema bilaterally. No calf tenderness. NEURO/PSYCH: Awake, alert. Appropriate insight and judgment. Normal speech. A/P Assessment and Plan 41-year-old male with PMH significant for cardiomyopathy and HTN, pleural effusion and significant anasarca and peripheral edema Discharge Planning Today once seen by CM to assist with PA and/insurance wdw Dr. Rakesh Zamorano Problem List: (1) Cardiomyopathy Status: Acute Plan: History significant for cardiomyopathy. Associated with progressive shortness of breath, abdominal bloating, lower extremity swelling over the last month. Has been on NELLY inhibitor in the past but none recently due to financial issues. -Continue diuresis, will discharge on lasix as it is on the $4 [place] list -BNP elevated at 1025 -ACS evaluation * Troponin elevated likely due to cardiomyopathy and CKD as there is no acute chest pain -Echo: EF of 20%, mildly dilated left atrium. -ALPA santizo Cardiology consulted: Appreciate recommendations, low-dose nelly has been initiated * Continue Beta jt, NELLY-I and diuresis. Increase activity Medications: * Bumex 2mg daily * Decreased Coreg to 12.5mg BID * Lisinopril 10mg daily (2) SOB (shortness of breath) Status: Resolved Plan: Etiology unclear but likely due to cardiomyopathy. Improving. -Diuresis as above -No DVT on lower extremity ultrasound -Diagnostic pleurocentesis * Pleural WBC and RBC elevated * Pleural LDH 864 * Ratio of of pleural LDH and serum LDH is >0.6 which is indicative of exudative -V/Q scan indeterminate. Asymptomatic. Possibly significant for previous PE. No need for anticoagulation at this time. * Pleural cultures NGTD * Pleural cytology pending Imaging: * CXR: Moderate compensated cardiomegaly without significant failure * Abdominal/pelvis CT: Umbilical hernia without evidence of obstruction or incarceration. Anasarca and edematous changes in the retroperitoneum. Smaller moderate right pleural effusion and mild cardiomegaly. No evidence of IBD, hydronephrosis, pancreatitis, cholecystitis. (3) CKD (chronic kidney disease) Status: Chronic Plan: Suspect patient may have an underlining kidney disease that may have been exacerbated by HTN and cardiomyopathy. No baseline renal function to compare as the patient denies any prior history of renal dysfunction. -UA significant for proteinuria -Creatinine has improved since diuresis Nephrology consulted: appreciate recommendations * 24 urine protein collection not very high * Considering deposition disease * Elevated creatinine may be due to aggressive diuresis (4) DM (diabetes mellitus) Status: Acute Plan: Newly diagnosed diabetes with A1c of 6.7 -Consulted tobacco prevention health educator -Due to renal function, metformin is not to be initiated -Monitor blood sugars -will not start any medications at this time until he establishes with a PCP as his A1c is <7 (5) HTN (hypertension) Status: Acute Plan: Hypertensive on admission. -Hydralazine PRN -Low-dose NELLY inhibitor and Coreg as above (6) Nutrition, metabolism, and development symptoms Status: Acute Plan: Diet: Heart healthy with salt and fluid restrictions Electrolytes: monitor and replace as needed Fluids: None DVT prophylaxis: SCDs GI prophylaxis: Omeprazole to help with bloating Problem Qualifiers (1) Cardiomyopathy: Qualified Code: I42.9 - Cardiomyopathy, unspecified type (2) CKD (chronic kidney disease): Qualified Code: N18.9 - CKD (chronic kidney disease), unspecified stage (3) DM (diabetes mellitus): (4) HTN (hypertension): Qualified Code: I15.9 - Secondary hypertension Smiley Lowe MD R2 Dec 31, 2016 08:16
--- NOTE | 2016-12-31 08:18 | HHI.DCPOC ---
Discharge Care Plan Diagnosis: (1) Cardiomyopathy (2) HTN (hypertension) (3) FAY (acute kidney injury) (4) DM (diabetes mellitus) (5) Acute exacerbation of CHF (congestive heart failure) Goals to Promote Your Health * To prevent worsening of your condition and complications * To maintain your health at the optimal level Directions to Meet Your Goals Take your medications as prescribed Follow your dietary instruction Follow activity as directed Keep your appointments as scheduled Take your immunizations and boosters as scheduled If your symptoms worsen call your PCP, if no PCP go to Urgent Care Center or Emergency Room Smoking is Dangerous to Your Health. Avoid second hand smoke Call the 24-hour hour crisis hotline for domestic abuse at Smiley Lowe MD R2 Dec 31, 2016 08:18
--- NOTE | 2016-12-31 08:32 | HHI.DS ---
Discharge Summary Admission Date Dec 27, 2016 at 13:34 Discharge Date: Dec 31, 2016 Admitting Diagnosis (1) Cardiomyopathy Plan: History significant for cardiomyopathy. Associated with progressive shortness of breath, abdominal bloating, lower extremity swelling over the last month. Has been on NELLY inhibitor in the past but none recently due to financial issues. -Continue diuresis, will discharge on lasix as it is on the $4 [employer] list -BNP elevated at 1025 -ACS evaluation * Troponin elevated likely due to cardiomyopathy and CKD as there is no acute chest pain -Echo: EF of 20%, mildly dilated left atrium. -ALPA santizo Cardiology consulted: Appreciate recommendations, low-dose nelly has been initiated * Continue Beta jt, NELLY-I and diuresis. Increase activity Medications: * Bumex 2mg daily * Decreased Coreg to 12.5mg BID * Lisinopril 10mg daily (2) SOB (shortness of breath) Plan: Etiology unclear but likely due to cardiomyopathy. Improving. -Diuresis as above -No DVT on lower extremity ultrasound -Diagnostic pleurocentesis * Pleural WBC and RBC elevated * Pleural LDH 864 * Ratio of of pleural LDH and serum LDH is >0.6 which is indicative of exudative -V/Q scan indeterminate. Asymptomatic. Possibly significant for previous PE. No need for anticoagulation at this time. * Pleural cultures NGTD * Pleural cytology pending Imaging: * CXR: Moderate compensated cardiomegaly without significant failure * Abdominal/pelvis CT: Umbilical hernia without evidence of obstruction or incarceration. Anasarca and edematous changes in the retroperitoneum. Smaller moderate right pleural effusion and mild cardiomegaly. No evidence of IBD, hydronephrosis, pancreatitis, cholecystitis. (3) CKD (chronic kidney disease) Plan: Suspect patient may have an underlining kidney disease that may have been exacerbated by HTN and cardiomyopathy. No baseline renal function to compare as the patient denies any prior history of renal dysfunction. -UA significant for proteinuria -Creatinine has improved since diuresis Nephrology consulted: appreciate recommendations * 24 urine protein collection not very high * Considering deposition disease * Elevated creatinine may be due to aggressive diuresis (4) DM (diabetes mellitus) Plan: Newly diagnosed diabetes with A1c of 6.7 -Consulted clinical unit educator -Due to renal function, metformin is not to be initiated -Monitor blood sugars -will not start any medications at this time until he establishes with a PCP as his A1c is <7 (5) HTN (hypertension) Plan: Hypertensive on admission. -Hydralazine PRN -Low-dose NELLY inhibitor and Coreg as above (6) Nutrition, metabolism, and development symptoms Plan: Diet: Heart healthy with salt and fluid restrictions Electrolytes: monitor and replace as needed Fluids: None DVT prophylaxis: SCDs GI prophylaxis: Omeprazole to help with bloating [facility] Neph[facility] Brief History Patient is a 41-year-old male with a PMH significant for cardiomyopathy and HTN. Present here today due to progressive worsening abdominal pain and SOB. The abdominal pain started one month ago and described as sharp pain that is positional. The shortness of breath has been progressively worsening over the last week and he noticed bilateral lower extremity swelling over the last couple weeks. He has noticed an associated abdominal bloating, decreased appetite, vomiting, nausea over this time period. Denies any chest pain. Barnett like symptoms were initially due to constipation and has been taking Mylanta which does help with bloating but causes him to have diarrhea. The bloating sensation makes this SOB worse. Endorses a one-time episode of fever 2 weeks ago but none since. Endorses cough and orthopnea. Denies diaphoresis, melena, dysuria. Reports that he used to take an NELLY inhibitor to help with his cardiomyopathy and hypertension but has ran out due to insurance issues. CBC/BMP: 12/27/16 1020 12/31/16 0707 Significant Findings Laboratory Tests Test 12/28/16 12/29/16 12/29/16 12/30/16 14:40 05:20 22:00 05:33 Pleural Fluid WBC 191 /MM3 (0-10) Pleural Fluid RBC 64 /MM3 (0-0) Blood Urea Nitrogen 24 MG/DL (7-18) 22 MG/DL (7-18) Creatinine 1.97 MG/DL 1.69 MG/DL (0.60-1.30) (0.60-1.30) Estimat Glomerular Filtration 45 ML/MIN (>89) 54 ML/MIN (>89) Rate Random Glucose 110 MG/DL (74-106) Calcium Level 8.1 MG/DL 7.8 MG/DL (8.5-10.1) (8.5-10.1) Urine Total Protein 24 Hour 180 MG/24HR (0-150) Potassium Level 3.4 MEQ/L (3.5-5.1) Test 12/31/16 07:07 Potassium Level 3.4 MEQ/L (3.5-5.1) Blood Urea Nitrogen 19 MG/DL (7-18) Creatinine 1.49 MG/DL (0.60-1.30) Estimat Glomerular Filtration 62 ML/MIN (>89) Rate Calcium Level 8.1 MG/DL (8.5-10.1) Imaging Last Impressions Lung Scan-VQ Nuclear Medicine 12/29/16 0000 Signed Impressions: Service Date/Time: Thursday, December 29, 2016 12:25 - CONCLUSION: Subsegmental defects some of which are matched and some are not. This is an intermediate probability for pulmonary embolus. Eddy Moffett MD Thoracentesis Ultrasound 12/28/16 0000 Signed Impressions: Service Date/Time: December 14:02 - CONCLUSION: Uncomplicated ultrasound guided thoracentesis. Only 10 cc were removed and sent for culture. Terry Duarte MD FACR Chest X-Ray 12/28/16 0000 Signed Impressions: Service Date/Time: December 14:57 - CONCLUSION: Increased density at the right base representing consolidation, atelectasis, and some possible mild residual effusion. A pneumothorax is not seen. Eddy Moffett MD Abdomen/Pelvis CT 12/27/16 1015 Signed Impressions: Service Date/Time: Tuesday, December 27, 2016 12:02 - CONCLUSION: Umbilical hernia containing an air filled loop of intestine. There is no evidence of obstruction or incarceration. Anasarca and edematous changes in the retroperitoneum as described. Smaller moderate right pleural effusion and mild cardiomegaly. No evidence of inflammatory bowel disease, hydronephrosis, pancreatitis or cholecystitis. Antony Zuniga MD Lower Extremity Ultrasound 12/27/16 0000 Signed Impressions: Service Date/Time: Tuesday, December 27, 2016 11:12 - CONCLUSION: No DVT. Eddy Moffett MD PE at Discharge GEN: Well-developed, well-nourished patient. Laying in bed. No acute distress. CV: Regular rate and rhythm without obvious murmurs LUNGS: Clear to auscultation bilaterally. No wheezes, rales, rhonchi. EXT: 2+ pitting edema bilaterally. No calf tenderness. NEURO/PSYCH: Awake, alert. Appropriate insight and judgment. Normal speech. Hospital Course Patient is a 40-year-old male with a history of cardiomyopathy and HTN. Presented due to SOB likely due to acute exacerbation of CHF. Responded well to diuresis with Bumex. Was also found to have CKD which may be due to a combination of HTN, cardiomyopathy, diabetes but renal function did improve during hospitalization from a high of 1.74 to 1.49. Echo showed an EF of 20%. Cardiology agreed with antihypertensive treatment and diuresis. Nephrology evaluated for other etiologies of CKD which has thus far been negative. Patient was found to have new pleural effusion with inconclusive results. LDH was elevated indicating exudative properties but there was also a large number of RBCs. VQ scan was performed due to possible PE but results were intermediate. Due to clinical findings and improvement in respiratory status, we did not deem that this was indicative of a PE and therefore anticoagulation was not initiated. Patient was also found to be a newly diagnosed diabetic with an A1c of 6.7. Diabetic education was provided. Metformin was not started due to the initial GFR in the 40s. Patient was discharged in stable condition. Pt Condition on Discharge: Stable Discharge Disposition: Discharge Home Discharge Instructions DIET: Follow Instructions for: Heart Healthy Diet, Low Sodium Diet Activities you can perform: Regular-No Restrictions Follow up Referrals: Appointment for Follow Up with Smiley Lowe MD [facility] Cardiology - 1 Week with Jin Wetzel MD Nephrology - 1 Week with Etienne Terry MD New Medications: Furosemide (Lasix) 20 Mg Tab 20 MG PO DAILY $4 at [facility] #30 Ref 0 TAB Potassium Chloride ER (Potassium Chloride ER) 10 Meq Cap 10 MEQ PO DAILY Electrolyte Replacement #30 Ref 0 CAP Carvedilol (Coreg) 12.5 Mg Tab 12.5 MG PO Q12HR $4 at [facility] #60 TAB Lisinopril (Lisinopril) 10 Mg Tab 10 MG PO DAILY Free at [facility] #30 TAB Smiley Lowe MD R2 Dec 31, 2016 08:32
[2016-12-31] MEDS: BUMETANIDE INJ 1 MG/4 ML VIAL IV PUSH SCH (09:27)
[2016-12-31] MEDS: PANTOPRAZOLE SOD 20 MG DELAYED RELEASE TAB PO SCH (09:27)
[2016-12-31] MEDS: CARVEDILOL 12.5 MG TAB PO SCH (09:27)
[2016-12-31] MEDS: LISINOPRIL 10 MG TAB PO SCH (09:28)
[2016-12-31] MEDS: SODIUM CHLORIDE 0.9% FLUSH 5 ML FLUSH FLUSH SCH (09:29)
[2017-01-05] MEDS ORDERED: FURO1TAB60 PO ×2 (14:33→14:58)
[2017-01-05] MEDS ORDERED: BUME1TAB PO ×2 (14:56→14:57)
[2017-01-05] MEDS ORDERED: ASPI81CH CHEW (15:39)
[2017-02-01] MEDS ORDERED: POTA10CA PO (12:25)
[2017-02-01] MEDS ORDERED: CARV12.5 PO (12:25)
[2017-02-01] MEDS ORDERED: FURO1TAB60 PO (12:25)
[2017-02-01] MEDS ORDERED: LISI10TA3 PO (12:25)
[2017-03-02] MEDS ORDERED: CARV12.5 PO (14:54)
== END 2016-12-31 11:35 | disposition home or self-care (01) | DRG 292 ==
LOC: NEPE 09:35 → NEDA 13:34 → HCIS 21:01
PROVIDERS: ADMIT Family Medicine; ATTEND Family Medicine
PROC: 0W993ZX Drainage of Right Pleural Cavity, Percutaneous Approach, Diagnostic (ICD-10-PCS; principal; 2016-12-28)
DX: I50.23 Acute on chronic systolic (congestive) heart failure (principal); N17.9 Acute kidney failure, unspecified; I42.4 Endocardial fibroelastosis; E11.22 Type 2 diabetes mellitus with diabetic chronic kidney disease; I15.9 Secondary hypertension, unspecified; K21.9 Gastro-esophageal reflux disease without esophagitis; N18.9 Chronic kidney disease, unspecified; K42.9 Umbilical hernia without obstruction or gangrene; K59.00 Constipation, unspecified; Z82.3 Family history of stroke; Z82.49 Family history of ischemic heart disease and other diseases of the circulatory system; R80.9 Proteinuria, unspecified; Z83.3 Family history of diabetes mellitus; R74.8 Abnormal levels of other serum enzymes; Z59.0 Homelessness; Z86.711 Personal history of pulmonary embolism; Z96.652 Presence of left artificial knee joint
CPT/HCPCS: 32555; 71010; 74176; 78582; 80048; 80053; 81001; 82043; 82150; 82550; 82945; 83036; 83605; 83615; 83690; 83880; 83986; 84157; 84165; 84484; 85025; 85610; 85730; 86021; 86038; 86160; 86335; 87015; 87070; 87102; 87116; 87205; 87206; 89051; 93005; 93306; 93970; 96374; A9540; A9567; C1729; J2405

== ENCOUNTER 2017-01-06 08:04 | Emergency (ER) | payer OTHER ==
[~2017-01-06] VITALS: Ht 177.8 cm; Wt 107.0 kg
[~2017-01-06 08:04] MED LIST: ASPI81CH CHEW; BUME1TAB PO; CARV12.5 PO; FURO1TAB60 PO; LISI10TA3 PO; POTA10CA PO
[2017-01-06 08:06] VITALS: BP 164/124; PULSE 116; RESP 20; TEMP 98.3; O2SAT 99
[2017-01-06] MEDS ORDERED: SODIUM CHLORIDE 0.9% FLUSH 10 ML FLUSH IVF PRN (09:15)
--- NOTE | 2017-01-06 09:20 | PD ---
HPI Chief Complaint: Respiratory Symptoms Time Seen by Provider: 08:44 Travel History International Travel<30 days: No Contact w/Intl Traveler<30days: No Traveled to known affect area: No History of Present Illness HPI This is a 41-year-old gentleman with a history of cardiomyopathy, diabetes mellitus, chronic kidney injury, who presents today with complaints of shortness of breath. The patient was admitted to the hospital a week ago for respiratory symptoms including anasarca and elevated troponin. At that time he had his medications adjusted where they took him off his Bumex and added Lasix twice daily. The patient states that he had continued to have swelling and shortness of breath. He was seen by Dr. Weiner, primary care physician, who put him back on his Bumex last night. He states he had one dose of Bumex and his artery putting out that her urine. He denies any productive phlegm. He denies any chest pain, chest pressure. There are no other complaints at the time of my examination. PFSH Past Medical History Cardiovascular Problems: Yes (HTN, cardio myapthy ) Congestive Heart Failure: Yes GERD: Yes Hypertension: Yes Social History Alcohol Use: No Tobacco Use: No Substance Use: No Allergies-Medications (Allergen,Severity, Reaction): Coded Allergies: Morphine (Verified Allergy, Intermediate, Hives, 01/06/17) Reported Meds & Prescriptions Reported Meds & Active Scripts Active Aspirin 81 Mg Chew 81 Mg CHEW DAILY Lasix (Furosemide) 40 Mg Tab 40 Mg PO DAILY Bumetanide 1 Mg Tab 1 Mg PO DAILY Potassium Chloride ER (Potassium Chloride) 10 Meq Cap 10 Meq PO DAILY Coreg (Carvedilol) 12.5 Mg Tab 12.5 Mg PO Q12HR $[address] [facility] Lisinopril 10 Mg Tab 10 Mg PO DAILY Free at Publ Review of Systems Except as stated in HPI: all other systems reviewed are Neg General / Constitutional: No: Fever HENT: No: Headaches, Lightheadedness Cardiovascular: No: Chest Pain or Discomfort, Palpitations Respiratory: Positive: Shortness of Breath, Wheezing, No: Cough Gastrointestinal: Positive: Nausea, Vomiting, No: Abdominal Pain (times one episode) Musculoskeletal: No: Myalgias, Weakness Skin: No Rash, No Itching Neurologic: No: Weakness, Dizziness Physical Exam Narrative GENERAL: Well-developed well-nourished gentleman in mild rest her discomfort. SKIN: Warm and dry. HEAD: Atraumatic. Normocephalic. EYES: No scleral icterus. No injection or drainage. ENT: No nasal bleeding or discharge. Mucous membranes pink and moist. NECK: Trachea midline. No JVD. CARDIOVASCULAR: Regular rate in the 90s with normal rhythm. RESPIRATORY: No accessory muscle use. Clear to auscultation. Breath sounds equal bilaterally. GASTROINTESTINAL: Abdomen soft, non-tender, nondistended. MUSCULOSKELETAL: No obvious deformities. No clubbing. No cyanosis. 2+ edema bilaterally. NEUROLOGICAL: Awake and alert. No obvious cranial nerve deficits. Motor grossly within normal limits. Normal speech. PSYCHIATRIC: Appropriate mood and affect; insight and judgment normal. Data Data Last Documented VS Vital Signs Date Time Temp Pulse Resp B/P Pulse Ox O2 Delivery O2 Flow Rate FiO2 01/06/17 09:30 98 Room Air 01/06/17 09:30 85 150/92 01/06/17 08:46 18 01/06/17 08:06 98.3 Orders Complete Blood Count With Diff (01/06/17 09:01) Comprehensive Metabolic Panel (01/06/17 09:01) B-Type Natriuretic Peptide (01/06/17 09:01) Iv Access Insert/Monitor (01/06/17 09:01) Electrocardiogram (01/06/17 09:01) Ecg Monitoring (01/06/17 09:01) Oximetry (01/06/17 09:01) Oxygen Administration (01/06/17 09:01) Chest, Single Ap (01/06/17 09:01) Sodium Chloride 0.9% Flush (Ns Flush) (01/06/17 09:15) Ckmb (Isoenzyme) Profile (01/06/17 11:10) Troponin I (01/06/17 11:10) CKMB (01/06/17 09:16) CKMB% (01/06/17 09:16) Labs Laboratory Tests Test 01/06/17 09:16 White Blood Count 4.1 TH/MM3 Red Blood Count 4.63 MIL/MM3 Hemoglobin 13.1 GM/DL Hematocrit 38.0 % Mean Corpuscular Volume 82.1 FL Mean Corpuscular Hemoglobin 28.3 PG Mean Corpuscular Hemoglobin 34.4 % Concent Red Cell Distribution Width 14.0 % Platelet Count 222 TH/MM3 Mean Platelet Volume 9.4 FL Neutrophils (%) (Auto) 44.0 % Lymphocytes (%) (Auto) 39.4 % Monocytes (%) (Auto) 13.8 % Eosinophils (%) (Auto) 1.3 % Basophils (%) (Auto) 1.5 % Neutrophils # (Auto) 1.8 TH/MM3 Lymphocytes # (Auto) 1.6 TH/MM3 Monocytes # (Auto) 0.6 TH/MM3 Eosinophils # (Auto) 0.1 TH/MM3 Basophils # (Auto) 0.1 TH/MM3 CBC Comment DIFF FINAL Differential Comment Sodium Level 142 MEQ/L Potassium Level 4.2 MEQ/L Chloride Level 107 MEQ/L Carbon Dioxide Level 27.0 MEQ/L Anion Gap 8 MEQ/L Blood Urea Nitrogen 17 MG/DL Creatinine 1.48 MG/DL Estimat Glomerular Filtration 63 ML/MIN Rate Random Glucose 121 MG/DL Calcium Level 8.6 MG/DL Total Bilirubin 1.6 MG/DL Aspartate Amino Transf 32 U/L (AST/SGOT) Alanine Aminotransferase 46 U/L (ALT/SGPT) Alkaline Phosphatase 92 U/L Total Creatine Kinase 137 U/L Troponin I 0.15 NG/ML B-Type Natriuretic Peptide 1565 PG/ML Total Protein 6.3 GM/DL Albumin 2.8 GM/DL MDM Medical Decision Making Medical Screen Exam Complete: Yes Emergency Medical Condition: Yes Differential Diagnosis Congestive heart failure versus reactive airway disease versus non-STEMI Narrative Course 41-year-old male with history of cardiomyopathy, chronic kidney disease, diabetes mellitus, who presents today with complaints of shortness of breath and increased extremity edema. The patient was recently admitted to the hospital and discharged with a different diuretic regimen. He states it was not working well and when he called his primary care physician, Dr. Weiner, she called in the Bumex which she reports has increased his urine output. The patient's laboratory tests are within normal limits or at least what they were at his baseline on discharge. His troponin was slightly elevated at 0.15 however this is much decreased from his previous elevated troponin. From previous hospitalization, remarkable was that his troponin would continue to be elevated secondary to his cardiomyopathy and low ejection action. The patient is not having chest pain. His saturations are in the high 90s. He is in no respiratory distress on my reevaluation. I've informed him of the findings on his tests. His blood pressure was slightly elevated at 160/90. I've told him to keep an eye on it and it continues to stay high, he should call his primary care physician. He'll be told to continue the new regimen of diuretics to Dr. Weiner called in for him. Diagnosis Primary Impression: SOB (shortness of breath) Additional Impressions: CKD (chronic kidney disease) Cardiomyopathy DM (diabetes mellitus) Additional Instructions: Continue the Bumex as per Dr. Weiner. Return if shortness of breath, chest pain , or any other reason that concerned her. Disposition: 01 DISCHARGE HOME Condition: Stable Reji Anton MD Jan 06, 2017 09:20
[2017-01-06 09:28] LABS: AUTOMATED NEUTROPHIL # 1.8 TH/MM3 (1.8-7.7); BASOPHIL # 0.1 TH/MM3 (0-0.2); BASOPHIL % 1.5 % (0.0-2.0); EOSINOPHIL # 0.1 TH/MM3 (0-0.4); EOSINOPHIL % 1.3 % (0.0-4.0); HEMO FLAGS DIFF FINAL; LYMPH % 39.4 % (9.0-44.0); LYMPHOCYTE # 1.6 TH/MM3 (1.0-4.8); MEAN CELL VOLUME 82.1 FL (80.0-100.0); MEAN CORPUSCULAR HEMOGLOBIN 28.3 PG (27.0-34.0); MEAN CORPUSCULAR HGB CONC 34.4 % (32.0-36.0); MONO % 13.8 % (0.0-8.0); PLATELET COUNT 222 TH/MM3 (150-450); RED BLOOD COUNT 4.63 MIL/MM3 (4.50-5.90); WHITE BLOOD COUNT 4.1 TH/MM3 (4.0-11.0)
[2017-01-06 09:30] VITALS: BP 150/92; PULSE 85
--- NOTE | 2017-01-06 09:35 | RADRPT ---
EXAM DATE/TIME: 01/06/2017 09:16 [place] COMPARISON: CHEST EXPIRATION ONLY, December 28, 2016, 14:57. CHEST SINGLE AP, December 27, 2016, 10:24. INDICATIONS : Shortness of breath and bilateral leg swelling. MEDICAL HISTORY : Hypertension. Congestive heart failure. SURGICAL HISTORY : None. ENCOUNTER: Initial ACUITY: 3 days PAIN SCORE: 0/10 LOCATION: Bilateral chest FINDINGS: Single view of the chest demonstrates improved aeration of the lungs as compared to the prior exam. T here is only trace right-sided fluid versus airspace consolidation present. The heart size remains en larged and there is persistent cephalization of pulmonary vasculature. Osseous structures are unremar kable. CONCLUSION: Overall improved lung exam. Persistent cardiomegaly and findings of congestive heart failure. Regine Tee MD on January 06, 2017 at 9:32 Board Certified Radiologist. This report was verified electronically.
[2017-01-06 10:11] LABS: ALKALINE PHOSPHATASE 92 U/L (45-117); ALT (GPT) 46 U/L (12-78); ANION GAP 8 MEQ/L (5-15); AST (GOT) 32 U/L (15-37); BLOOD UREA NITROGEN 17 MG/DL (7-18); CHLORIDE 107 MEQ/L (98-107); GLOMERULAR FILTRATION RATE 63 ML/MIN (>89); SODIUM (NA) 142 MEQ/L (136-145); TOTAL BILIRUBIN ADULT 1.6 MG/DL (0.2-1.0)
[2017-01-06 10:12] LABS: POTASSIUM 4.2 MEQ/L (3.5-5.1)
[2017-01-06 12:23] LABS: CREATINE KINASE 137 U/L (39-308)
[2017-01-06 12:36] LABS: CKMB 0.8 NG/ML (0.5-3.6)
[2017-02-01] MEDS ORDERED: POTA10CA PO (12:25)
[2017-02-01] MEDS ORDERED: FURO1TAB60 PO (12:25)
[2017-02-01] MEDS ORDERED: CARV12.5 PO (12:25)
[2017-02-01] MEDS ORDERED: LISI10TA3 PO (12:25)
[2017-03-02] MEDS ORDERED: CARV12.5 PO (14:54)
== END 2017-01-06 13:26 | disposition home or self-care (01) ==
LOC: NEPC 08:04
DX: R06.02 Shortness of breath (principal); I12.9 Hypertensive chronic kidney disease with stage 1 through stage 4 chronic kidney disease, or unspecified chronic kidney disease; N18.9 Chronic kidney disease, unspecified; I42.9 Cardiomyopathy, unspecified; E11.22 Type 2 diabetes mellitus with diabetic chronic kidney disease; I50.9 Heart failure, unspecified
CPT/HCPCS: 71010; 80053; 82550; 82552; 83880; 84484; 85025; 99285

== ENCOUNTER 2017-03-27 14:53 | Inpatient (IN) | payer OTHER ==
[~2017-03-27] VITALS: Ht 180.3 cm; Wt 92.1 kg
[2017-03-27] VITALS (9 sets, daily range): BP systolic 154–214; BP diastolic 101–125; PULSE 55–84; RESP 16–18; TEMP 98.4; O2SAT 98–99
--- NOTE | 2017-03-27 16:27 | PD ---
HPI Chief Complaint: Chest Pain Time Seen by Provider: 16:27 Travel History International Travel<30 days: No Contact w/Intl Traveler<30days: No Traveled to known affect area: No History of Present Illness HPI 42-year-old male with a history of cardiomyopathy with an ejection fraction of 20%, hypertension, diabetes, chronic and the disease presents to the emergency department for 3 day history of chest tightness and shortness of breath. Patient states that he has had chest tightness across his chest that is constant. Aggravated with lying flat and with exertion. He states he also has some lightheadedness. Denies any headache, blurred vision, nausea, vomiting, numbness or tingling, weakness. He states he feels as though his abdomen is swelling, denies any swelling of the extremities. States he's been out of all of his medications for the past 3 weeks because he has been unable to see a primary care provider for refills. He has had insurance difficulties and has not been able to get a doctor. Denies any history of PR, denies any prior heart catheterizations. Patient states that he has had high blood pressure since he was very young and has had cardiomyopathy since his 20s. No other complaints. PFSH Past Medical History Hx Anticoagulant Therapy: Yes (BABY ASPIRIN ) Cardiovascular Problems: Yes (HTN ) Congestive Heart Failure: Yes Cerebrovascular Accident: Yes Diabetes: No GERD: Yes Hypertension: Yes Social History Alcohol Use: No Tobacco Use: No Substance Use: No Allergies-Medications (Allergen,Severity, Reaction): Coded Allergies: Morphine (Verified Allergy, Intermediate, Hives, 01/06/17) Reported Meds & Prescriptions Reported Meds & Active Scripts Active Coreg (Carvedilol) 12.5 Mg Tab 12.5 Mg PO Q12HR $4 at [facility] Lasix (Furosemide) 40 Mg Tab 40 Mg PO DAILY Potassium Chloride ER (Potassium Chloride) 10 Meq Cap 10 Meq PO DAILY Lisinopril 10 Mg Tab 10 Mg PO DAILY Free at [facility] Aspirin 81 Mg Chew 81 Mg CHEW DAILY Bumetanide 1 Mg Tab 1 Mg PO DAILY Review of Systems Except as stated in HPI: all other systems reviewed are Neg Physical Exam Narrative GENERAL: Well-nourished and well-developed pleasant male patient in no acute distress who is nontoxic appearing. SKIN: Warm and dry. HEAD: Normocephalic and atraumatic. EYES: No injection, drainage, or hyphema noted. PERRLA. EOMI. ENT: No nasal drainage noted. Oropharynx is clear. NECK: Supple and the trachea is midline. CARDIOVASCULAR: Regular rate and rhythm. RESPIRATORY: Breath sounds are equal bilaterally with no accessory muscle use, wheezing, rhonchi, or crackles. GASTROINTESTINAL: Abdomen is soft, non-tender, and nondistended. MUSCULOSKELETAL: No obvious deformities, swelling, cyanosis, or ecchymosis is present throughout the upper and lower extremities. Patient has full range of motion without any signs of neurovascular compromise. NEUROLOGICAL: Awake, alert, and oriented. Normal speech and gait. Cranial nerves are grossly intact. Data Data Last Documented VS Vital Signs Date Time Temp Pulse Resp B/P Pulse Ox O2 Delivery O2 Flow Rate FiO2 03/27/17 18:20 61 18 171/117 98 03/27/17 16:49 Room Air 03/27/17 14:55 98.4 Orders Electrocardiogram (03/27/17 ) Electrocardiogram (03/27/17 16:25) B-Type Natriuretic Peptide (03/27/17 16:25) Ckmb (Isoenzyme) Profile (03/27/17 16:25) Complete Blood Count With Diff (03/27/17 16:25) Comprehensive Metabolic Panel (03/27/17 16:25) Magnesium (Mg) (03/27/17 16:25) Prothrombin Time / Inr (Pt) (03/27/17 16:25) Act Partial Throm Time (Ptt) (03/27/17 16:25) Troponin I (03/27/17 16:25) Chest, Single Ap (03/27/17 16:25) Ecg Monitoring (03/27/17 16:25) Bilateral Bp Monitoring (03/27/17 16:25) Iv Access Insert/Monitor (03/27/17 16:25) Oximetry (03/27/17 16:25) Oxygen Administration (03/27/17 16:25) Aspirin Chew (Aspirin Chew) (03/27/17 16:30) Sodium Chloride 0.9% Flush (Ns Flush) (03/27/17 16:30) Labetalol Inj (Trandate Inj) (03/27/17 16:30) Enalaprilat Inj (Vasotec Inj) (03/27/17 17:30) Nitroglycerin 2% Oint (Nitroglycerin 2% (03/27/17 17:30) CKMB (03/27/17 16:45) CKMB% (03/27/17 16:45) Admit Order (Ed Use Only) (03/27/17 18:34) Labs Laboratory Tests Test 03/27/17 16:45 White Blood Count 5.4 TH/MM3 Red Blood Count 4.60 MIL/MM3 Hemoglobin 12.6 GM/DL Hematocrit 38.3 % Mean Corpuscular Volume 83.2 FL Mean Corpuscular Hemoglobin 27.4 PG Mean Corpuscular Hemoglobin 32.9 % Concent Red Cell Distribution Width 17.4 % Platelet Count 220 TH/MM3 Mean Platelet Volume 8.4 FL Neutrophils (%) (Auto) 42.7 % Lymphocytes (%) (Auto) 42.2 % Monocytes (%) (Auto) 11.7 % Eosinophils (%) (Auto) 2.4 % Basophils (%) (Auto) 1.0 % Neutrophils # (Auto) 2.3 TH/MM3 Lymphocytes # (Auto) 2.3 TH/MM3 Monocytes # (Auto) 0.6 TH/MM3 Eosinophils # (Auto) 0.1 TH/MM3 Basophils # (Auto) 0.1 TH/MM3 CBC Comment DIFF FINAL Differential Comment Prothrombin Time 10.7 SEC Prothromb Time International 1.0 RATIO Ratio Activated Partial 23.7 SEC Thromboplast Time Sodium Level 140 MEQ/L Potassium Level 4.8 MEQ/L Chloride Level 108 MEQ/L Carbon Dioxide Level 26.3 MEQ/L Anion Gap 6 MEQ/L Blood Urea Nitrogen 16 MG/DL Creatinine 1.17 MG/DL Estimat Glomerular Filtration 82 ML/MIN Rate Random Glucose 89 MG/DL Calcium Level 8.7 MG/DL Magnesium Level 2.1 MG/DL Total Bilirubin 0.8 MG/DL Aspartate Amino Transf 61 U/L (AST/SGOT) Alanine Aminotransferase 40 U/L (ALT/SGPT) Alkaline Phosphatase 75 U/L Total Creatine Kinase 249 U/L Creatine Kinase MB 1.1 NG/ML Troponin I 0.21 NG/ML B-Type Natriuretic Peptide 223 PG/ML Total Protein 7.9 GM/DL Albumin 3.5 GM/DL MDM Medical Decision Making Medical Screen Exam Complete: Yes Emergency Medical Condition: Yes Differential Diagnosis Hypertensive urgency versus ACS versus CHF versus pleurisy Narrative Course 42-year-old male presents to the emergency department for evaluation of chest pain, shortness breath and lightheadedness for 3 days. Patient is afebrile. He is hypertensive with a blood pressure of 214/125. He's been out of all his medications for the past 3 weeks. Physical examination is essentially unremarkable. IV access is obtained, labs were drawn and sent. Patient is administered aspirin and labetalol 10 mg IV. EKG shows normal sinus rhythm with septal inverted T waves but no acute ST elevations or depressions. CBC shows anemia with hemoglobin of 12.6, hematocrit 38.3. CMP is unremarkable. Troponin is elevated at 0.21. BNP is 223. Coags are unremarkable. Chest x-ray shows cardiomegaly without failure. No acute abnormalities. Patient's blood pressure remained elevated after labetalol 10 mg IV. He was then administered enalapril 1.25 mg IV and 1 inch Nitropaste was applied. Patient's blood pressure has remained elevated at 175/111. Patient has otherwise remained stable. He will be admitted to medicine service for hypertensive urgency and heart failure. I discussed the case with my attending physician Dr. Ames who is aware of the patients history, physical examination findings, and treatment plan. Physician Communication Physician Communication I spoke with Dr. Robles [facility] who agrees to admit the patient to his service. Diagnosis Primary Impression: Hypertensive urgency Additional Impressions: Elevated troponin Chest pain Qualified Code: R07.9 - Chest pain, unspecified type Cardiomyopathy Qualified Code: I42.9 - Cardiomyopathy, unspecified type Admitting Information Admitting Physician Requests: Admit Sherrie Richard Mar 27, 2017 16:27
[2017-03-27] MEDS ORDERED: ASPIRIN 81 MG CHEW TAB PO ONE (16:30)
[2017-03-27] MEDS ORDERED: LABETALOL HCL 100 MG/20 ML VIAL IV PUSH ONE (16:30)
[2017-03-27] MEDS ORDERED: SODIUM CHLORIDE 0.9% FLUSH 10 ML FLUSH IVF PRN (16:30)
[2017-03-27 17:04] LABS: AUTOMATED NEUTROPHIL # 2.3 TH/MM3 (1.8-7.7); BASOPHIL # 0.1 TH/MM3 (0-0.2); EOSINOPHIL # 0.1 TH/MM3 (0-0.4); EOSINOPHIL % 2.4 % (0.0-4.0); HEMATOCRIT 38.3 % (39.0-51.0); HEMO FLAGS DIFF FINAL; LYMPH % 42.2 % (9.0-44.0); LYMPHOCYTE # 2.3 TH/MM3 (1.0-4.8); MEAN CELL VOLUME 83.2 FL (80.0-100.0); MEAN CORPUSCULAR HEMOGLOBIN 27.4 PG (27.0-34.0); MEAN CORPUSCULAR HGB CONC 32.9 % (32.0-36.0); MONO % 11.7 % (0.0-8.0); NEUT % 42.7 % (16.0-70.0); PLATELET COUNT 220 TH/MM3 (150-450); RED CELL DISTRIBUTION WIDTH 17.4 % (11.6-17.2); WHITE BLOOD COUNT 5.4 TH/MM3 (4.0-11.0)
[2017-03-27 17:11] LABS: PROTHROMBIN TIME - PATIENT 10.7 SEC (9.8-11.6)
--- NOTE | 2017-03-27 17:13 | RADRPT ---
EXAM DATE/TIME: 03/27/2017 16:57 [facility] COMPARISON: CHEST SINGLE AP, January 06, 2017, 9:16. INDICATIONS : Chest pain. MEDICAL HISTORY : Chronic obstructive pulmonary disease. Cardio myopathy. SURGICAL HISTORY : None. ENCOUNTER: Initial ACUITY: 3 days PAIN SCORE: 6/10 LOCATION: Bilateral chest FINDINGS: A single view of the chest demonstrates the lungs to be symmetrically aerated without evidence of mas s, infiltrate or effusion. Cardiac silhouette is enlarged similar to previous exam. Osseous structure s are intact. CONCLUSION: 1. Cardiomegaly without failure. 2. No acute abnormality. Mor Vasquez MD on March 27, 2017 at 17:10 Board Certified Radiologist. This report was verified electronically.
--- NOTE | 2017-03-27 17:14 | EKG ---
Date Performed: 03/27/2017 Time Performed: 15:35:27 PTAGE: 42 years EKG: Sinus rhythm MODERATE T-WAVE ABNORMALITY, CONSIDER LATERAL ISCHEMIA ABNORMAL ECG no significant change from prio r EKG PREVIOUS TRACING : 02/22/2017 15.45 DOCTOR: Mitchell Cornell Interpretating Date/Time 03/27/2017 17:13:10
[2017-03-27 17:29] LABS: APTT (PATIENT) 23.7 SEC (24.3-30.1)
[2017-03-27] MEDS ORDERED: NITROGLYCERIN 2% OINT 1 GM PACKET TOP ONE (17:30)
[2017-03-27] MEDS ORDERED: ENALAPRILAT 1.25 MG/ML VIAL IV PUSH ONE (17:30)
[2017-03-27 17:36] LABS: ALKALINE PHOSPHATASE 75 U/L (45-117); ALT (GPT) 40 U/L (12-78); ANION GAP 6 MEQ/L (5-15); AST (GOT) 61 U/L (15-37); BICARBONATE 26.3 MEQ/L (21.0-32.0); BLOOD UREA NITROGEN 16 MG/DL (7-18); CHLORIDE 108 MEQ/L (98-107); GLOMERULAR FILTRATION RATE 82 ML/MIN (>89); MAGNESIUM 2.1 MG/DL (1.5-2.5); SODIUM (NA) 140 MEQ/L (136-145); TOTAL BILIRUBIN ADULT 0.8 MG/DL (0.2-1.0)
[2017-03-27 17:37] LABS: CREATINE KINASE 249 U/L (39-308); POTASSIUM 4.8 MEQ/L (3.5-5.1)
[2017-03-27 17:50] LABS: CKMB 1.1 NG/ML (0.5-3.6)
[2017-03-27] MEDS ORDERED: NALOXONE HCL 0.4 MG/ML AMP IV PRN (20:30)
[2017-03-27] MEDS ORDERED: SODIUM CHLORIDE 0.9% FLUSH 10 ML FLUSH IV FLUSH PRN (20:30)
[2017-03-27] MEDS ORDERED: NITROGLYCERIN 0.4 MG SL 25 TABS/BTL SL PRN (20:30)
[2017-03-27] MEDS: SODIUM CHLORIDE 0.9% FLUSH 10 ML FLUSH IV FLUSH SCH (21:00)
[2017-03-27] MEDS: hydrALAZINE HCL 20 MG/ML VIAL IV PUSH PRN ×2 (22:16→22:56)
--- NOTE | 2017-03-27 23:26 | HHI.HP ---
HPI Service [facility] Primary Care Physician No Primary Care Physician Admission Diagnosis Hypertensive Urgency, Elevated Troponin Diagnoses: Chief Complaint: chest pain and shortness of breath Travel History International Travel<30 Days: No Contact w/Intl Traveler <30 Da: No Traveled to Known Affected Are: No History of Present Illness Written by Savita Soto, acting as scribe for Dr. Kowalski on 03/27/17 at 23:23. The patient is seen in the emergency room. He reports that he has been having chest pain radiating to right flank and shortness of breath for the past 2-3 days accompanied by intermittent diaphoresis, and dizziness but denies associated syncope, denies palpitations. At the time of the visit, he reports feeling dizzy, flushed, and nauseated which is most likely related to the hydralazine IV he's received for hypertensive urgency. Denies history of CAD but reports history of CHF - states that he has never had a treadmill stress test or cardiac catheterization Echocardiogram personally reviewed from recent admission- EF 20% - 12/2016 Has had some night sweats and diarrhea x 1 day, no black or red stool over past two weeks. Denies recent fever, hematuria, or dysuria. States that he has been told he has prediabetes Has been out of home medications for over 3 weeks Patient is from [place] and has been in [place] for about 3 months Chest x-ray shows: Cardiomegaly without failure. Review of Systems Except as stated in HPI: all other systems reviewed are Neg Past Family Social History Past Medical History Prediabetes Hypertension CHF/CMP - does not have a defibrillator - EF 20% 12/2016 COPD CKD Denies liver problems, DVT, PE, CVA, seizures, thyroid problems, cancers . Past Surgical History Left knee ACL, MCL repair . Reported Medications Reported Meds & Active Scripts Active Coreg (Carvedilol) 12.5 Mg Tab 12.5 Mg PO Q12HR $4 at [employer] Lasix (Furosemide) 40 Mg Tab 40 Mg PO DAILY Potassium Chloride ER (Potassium Chloride) 10 Meq Cap 10 Meq PO DAILY Lisinopril 10 Mg Tab 10 Mg PO DAILY Free at [employer] Aspirin 81 Mg Chew 81 Mg CHEW DAILY Bumetanide 1 Mg Tab 1 Mg PO DAILY . Allergies: Coded Allergies: Morphine (Verified Allergy, Intermediate, Hives, 01/06/17) Active Ordered Medications Current Medications Aspirin (Aspirin Chew) 324 mg ONCE ONCE PO Last administered on 03/27/17 16: 30; Start 03/27/17 at 16:30; Stop 03/27/17 at 16:31; Status DC Sodium Chloride (NS Flush) 2 ml UNSCH PRN IVF FLUSH AFTER USING IV ACCESS; Start 03/27/17 at 16:30; Stop 03/27/17 at 22:12; Status DC Labetalol HCl (Trandate Inj) 10 mg ONCE ONCE IV PUSH Last administered on 03/27 16:30; Start 03/27/17 at 16:30; Stop 03/27/17 at 16:31; Status DC Enalaprilat (Vasotec Inj) 1.25 mg ONCE ONCE IV PUSH Last administered on 03/27 17:30; Start 03/27/17 at 17:30; Stop 03/27/17 at 17:31; Status DC Nitroglycerin (Nitroglycerin 2% Oint) 1 inch ONCE ONCE TOP Last administered on 03/27/17 17:30; Start 03/27/17 at 17:30; Stop 03/27/17 at 17:31; Status DC Sodium Chloride (NS Flush) 2 ml UNSCH PRN IV FLUSH FLUSH AFTER USING IV ACCESS ; Start 03/27/17 at 20:30 Sodium Chloride (NS Flush) 2 ml BID IV FLUSH Last administered on 03/27/17 21: 00; Start 03/27/17 at 21:00 Naloxone HCl (Narcan Inj) 0.4 mg UNSCH PRN IV SEE LABEL COMMENTS; Start at 20:30 Aspirin (Ecotrin Ec) 325 mg DAILY PO ; Start 03/28/17 at 09:00 Nitroglycerin (Nitrostat Sl) 0.4 mg Q5M PRN SL CHEST PAIN; Start 03/27/17 at 20 :30 Hydralazine HCl (Apresoline Inj) 10 mg Q30M PRN IV PUSH bp>160/90 Last administered on 03/27/17 22:56; Start 03/27/17 at 22:15 . Family History Hypertension, DM, CHF . Social History Tobacco: denies ever smoking; exposed to parental second hand smoke ETOH: occasional alcohol Illicit Drugs: tried marijuana > 20 years ago, none since Physical Exam Vital Signs Vital Signs Date Time Temp Pulse Resp B/P Pulse Ox O2 Delivery O2 Flow Rate FiO2 03/27/17 23:02 77 16 154/101 98 Room Air 03/27/17 22:56 71 165/109 03/27/17 22:24 65 16 162/107 03/27/17 22:15 55 16 180/113 98 03/27/17 20:08 62 16 170/111 98 03/27/17 18:20 61 18 171/117 98 03/27/17 17:16 60 18 175/111 98 03/27/17 16:49 98 03/27/17 16:49 65 177/118 98 03/27/17 16:49 65 18 98 Room Air 03/27/17 14:55 98.4 84 16 214/125 99 Physical Exam GENERAL: This is a well-nourished, well-developed patient, complaining of dizziness, lightheadedness, and nausea. SKIN: No rashes, ecchymoses or lesions. Cool and dry. HEAD: Atraumatic. Normocephalic. EYES: No scleral icterus. No injection or drainage. ENT: Nose without bleeding, purulent drainage. NECK: Trachea midline. No JVD or lymphadenopathy. CARDIOVASCULAR: Regular rate and rhythm without murmurs, gallops, or rubs. RESPIRATORY: Clear to auscultation. Breath sounds equal bilaterally. No wheezes , rales, or rhonchi. GASTROINTESTINAL: Abdomen soft, non-tender, nondistended. No guarding. MUSCULOSKELETAL: Extremities without clubbing, cyanosis, or edema. No calf tenderness. NEUROLOGICAL: Awake and alert. Motor and sensory grossly within normal limits. Normal speech. . Laboratory Laboratory Tests Test 03/27/17 16:45 White Blood Count 5.4 Red Blood Count 4.60 Hemoglobin 12.6 Hematocrit 38.3 Mean Corpuscular Volume 83.2 Mean Corpuscular Hemoglobin 27.4 Mean Corpuscular Hemoglobin 32.9 Concent Red Cell Distribution Width 17.4 Platelet Count 220 Mean Platelet Volume 8.4 Neutrophils (%) (Auto) 42.7 Lymphocytes (%) (Auto) 42.2 Monocytes (%) (Auto) 11.7 Eosinophils (%) (Auto) 2.4 Basophils (%) (Auto) 1.0 Neutrophils # (Auto) 2.3 Lymphocytes # (Auto) 2.3 Monocytes # (Auto) 0.6 Eosinophils # (Auto) 0.1 Basophils # (Auto) 0.1 CBC Comment DIFF FINAL Differential Comment Prothrombin Time 10.7 Prothromb Time International 1.0 Ratio Activated Partial 23.7 Thromboplast Time Sodium Level 140 Potassium Level 4.8 Chloride Level 108 Carbon Dioxide Level 26.3 Anion Gap 6 Blood Urea Nitrogen 16 Creatinine 1.17 Estimat Glomerular Filtration 82 Rate Random Glucose 89 Calcium Level 8.7 Magnesium Level 2.1 Total Bilirubin 0.8 Aspartate Amino Transf 61 (AST/SGOT) Alanine Aminotransferase 40 (ALT/SGPT) Alkaline Phosphatase 75 Total Creatine Kinase 249 Creatine Kinase MB 1.1 Troponin I 0.21 B-Type Natriuretic Peptide 223 Total Protein 7.9 Albumin 3.5 Result Diagram: 03/27/17 1645 03/27/17 1645 Imaging Last Impressions Chest X-Ray 03/27/17 1625 Signed Impressions: Service Date/Time: Monday, March 27, 2017 16:57 - CONCLUSION: 1. Cardiomegaly without failure. 2. No acute abnormality. Mor Vasquez MD Assessment and Plan Problem List: (1) NSTEMI (non-ST elevated myocardial infarction) ICD Code: I21.4 Status: Acute (2) Cardiomyopathy ICD Code: I42.9 Status: Acute (3) Hypertensive urgency ICD Code: I16.0 Status: Acute Assessment and Plan NSTEMI vs hypertensive emergency - trend serial cardiac enzymes and EKGs - adverse symptoms from IV hydralazine - medication d/c'd - restart home antihypertensive medications - will add additional PRN medication if needed - monitor trends in bp and adjust treatment as indicated Cardiomyopathy - likely secondary to poorly controlled hypertension - EF 20% on echocardiogram dated 12/27/16 - check urine drug screen to r/o possible causes of cmp in such a young patient - consult sausage smoker - assistance appreciated DVT prophylaxis - Heparin 5000 units subq q8h . This note was transcribed by trang [Savita Soto]. I, Dr. Kathi Kowalski personally performed the history, physical exam, and medical decision making; and confirmed the accuracy of the information in the transcribed note. Authenticated by Dr. Kathi Kowalski on 03/27/17 at 23:23. Discussed Condition With ER physician, RN, and patient Physician Certification 2 Midnight Certification Type: Admission for Inpatient Services Order for Inpatient Services The services are ordered in accordance with Medicare regulations or non- Medicare payer requirements, as applicable. In the case of services not specified as inpatient-only, they are appropriately provided as inpatient services in accordance with the 2-midnight benchmark. Estimated LOS (days): 3 days is the estimated time the patient will need to remain in the hospital, assuming treatment plan goals are met and no additional complications. Post-Hospital Plan: Home Problem Qualifiers (1) Cardiomyopathy: Qualified Code: I42.9 - Cardiomyopathy, unspecified type Savita Soto Mar 27, 2017 23:26 Kathi Kowalski MD Mar 30, 2017 07:48
[2017-03-28] VITALS (8 sets, daily range): BP systolic 128–168; BP diastolic 65–98; PULSE 56–94; RESP 16–20; TEMP 97.7–98.5; O2SAT 97–100
[2017-03-28] MEDS ORDERED: ONDANSETRON HCL 4 MG/2 ML VIAL IV PUSH PRN (01:30)
[2017-03-28] MEDS: ACETAMINOPHEN 325 MG TAB PO PRN ×2 (01:38→08:34)
[2017-03-28 04:15] LABS: AUTOMATED NEUTROPHIL # 5.8 TH/MM3 (1.8-7.7); BASOPHIL % 0.3 % (0.0-2.0); EOSINOPHIL % 0.5 % (0.0-4.0); HEMATOCRIT 37.2 % (39.0-51.0); HEMO FLAGS DIFF FINAL; LYMPH % 13.5 % (9.0-44.0); MEAN CELL VOLUME 83.3 FL (80.0-100.0); MEAN CORPUSCULAR HEMOGLOBIN 27.4 PG (27.0-34.0); MEAN CORPUSCULAR HGB CONC 32.9 % (32.0-36.0); MONO % 5.9 % (0.0-8.0); NEUT % 79.8 % (16.0-70.0); PLATELET COUNT 189 TH/MM3 (150-450); RED BLOOD COUNT 4.46 MIL/MM3 (4.50-5.90); RED CELL DISTRIBUTION WIDTH 17.5 % (11.6-17.2); WHITE BLOOD COUNT 7.3 TH/MM3 (4.0-11.0)
[2017-03-28 04:39] LABS: BICARBONATE 25.2 MEQ/L (21.0-32.0); POTASSIUM 3.1 MEQ/L (3.5-5.1)
[2017-03-28] MEDS: HEPARIN SODIUM - SQ 10,000 UNITS/ML VIAL SQ SCH ×3 (06:00→20:03)
--- NOTE | 2017-03-28 08:01 | EKG ---
Date Performed: 03/27/2017 Time Performed: 22:33:59 PTAGE: 42 years EKG: Sinus rhythm WITH OCCASIONAL ATRIAL PREMATURE COMPLEXES LEFT VENTRICULAR HYPERTROPHY AND ST-T CHANGE ABNORMAL EC G NO PREVIOUS TRACING DOCTOR: Mitchell Cornell Interpretating Date/Time 03/28/2017 07:59:37
[2017-03-28] MEDS: ASPIRIN 81 MG CHEW TAB CHEW SCH (08:33)
[2017-03-28] MEDS: POTASSIUM CHLORIDE 10 MEQ CAP PO SCH (08:33)
[2017-03-28] MEDS: CARVEDILOL 12.5 MG TAB PO SCH ×2 (08:33→20:03)
[2017-03-28] MEDS: SODIUM CHLORIDE 0.9% FLUSH 10 ML FLUSH IV FLUSH SCH ×2 (08:33→20:03)
[2017-03-28] MEDS: FUROSEMIDE 40 MG TAB PO SCH (08:34)
[2017-03-28] MEDS: LISINOPRIL 10 MG TAB PO SCH (08:34)
[2017-03-28] MEDS: BUMETANIDE 1 MG TAB PO SCH (08:34)
--- NOTE | 2017-03-28 08:45 | HHI.PR ---
Subjective Remarks in no acute distress. denies chest pain. has mild pain to the right lower back. no other complaints. Objective Vitals Vital Signs Date Time Temp Pulse Resp B/P Pulse Ox O2 Delivery O2 Flow Rate FiO2 03/28/17 04:00 98.1 76 16 130/65 98 03/28/17 04:00 Room Air 03/28/17 01:00 Room Air 03/28/17 00:26 69 16 128/79 97 Room Air 03/28/17 00:00 97.7 66 20 141/86 99 03/27/17 23:02 77 16 154/101 98 Room Air 03/27/17 22:56 71 165/109 03/27/17 22:24 65 16 162/107 03/27/17 22:15 55 16 180/113 98 03/27/17 20:08 62 16 170/111 98 03/27/17 18:20 61 18 171/117 98 03/27/17 17:16 60 18 175/111 98 03/27/17 16:49 98 03/27/17 16:49 65 177/118 98 03/27/17 16:49 65 18 98 Room Air 03/27/17 14:55 98.4 84 16 214/125 99 Result Diagram: 03/28/17 0326 03/28/17 0326 Imaging Last Impressions Chest X-Ray 03/27/17 1625 Signed Impressions: Service Date/Time: Monday, March 27, 2017 16:57 - CONCLUSION: 1. Cardiomegaly without failure. 2. No acute abnormality. Mor Vasquez MD Objective Remarks GENERAL: This is a well-nourished, well-developed patient, in no apparent distress. CARDIOVASCULAR: Regular rate and regular rhythm without murmurs, gallops, or rubs. RESPIRATORY: Clear to auscultation. Breath sounds equal bilaterally. No wheezes , rales, or rhonchi. GASTROINTESTINAL: Abdomen soft, non-tender, nondistended. Normal, active bowel sounds MUSCULOSKELETAL: Extremities without clubbing, cyanosis, or edema. NEURO: Alert & Oriented x4 to person, place, time, situation. Moves all ext x4 Procedures none Medications and IVs Current Medications Aspirin (Aspirin Chew) 324 mg ONCE ONCE PO Last administered on 03/27/17t 16: 30; Start 03/27/17 at 16:30; Stop 03/27/17 at 16:31; Status DC Sodium Chloride (NS Flush) 2 ml UNSCH PRN IVF FLUSH AFTER USING IV ACCESS; Start 03/27/17 at 16:30; Stop 03/27/17 at 22:12; Status DC Labetalol HCl (Trandate Inj) 10 mg ONCE ONCE IV PUSH Last administered on 03/27 16:30; Start 03/27/17 at 16:30; Stop 03/27/17 at 16:31; Status DC Enalaprilat (Vasotec Inj) 1.25 mg ONCE ONCE IV PUSH Last administered on 03/27 17:30; Start 03/27/17 at 17:30; Stop 03/27/17 at 17:31; Status DC Nitroglycerin (Nitroglycerin 2% Oint) 1 inch ONCE ONCE TOP Last administered on 03/27/17 17:30; Start 03/27/17 at 17:30; Stop 03/27/17 at 17:31; Status DC Sodium Chloride (NS Flush) 2 ml UNSCH PRN IV FLUSH FLUSH AFTER USING IV ACCESS ; Start 03/27/17 at 20:30 Sodium Chloride (NS Flush) 2 ml BID IV FLUSH Last administered on 03/28/17 08: 33; Start 03/27/17 at 21:00 Naloxone HCl (Narcan Inj) 0.4 mg UNSCH PRN IV SEE LABEL COMMENTS; Start at 20:30 Aspirin (Ecotrin Ec) 325 mg DAILY PO ; Start 03/28/17 at 09:00; Stop 03/28/17 at 09:00; Status DC Nitroglycerin (Nitrostat Sl) 0.4 mg Q5M PRN SL CHEST PAIN; Start 03/27/17 at 20 :30 Hydralazine HCl (Apresoline Inj) 10 mg Q30M PRN IV PUSH bp>160/90 Last administered on 03/27/17 22:56; Start 03/27/17 at 22:15; Stop 03/27/17 at 23:43 ; Status DC Aspirin (Aspirin Chew) 81 mg DAILY CHEW Last administered on 03/28/17 08:33; Start 03/28/17 at 09:00 Bumetanide (Bumetanide) 1 mg DAILY PO Last administered on 03/28/17 08:34; Start 03/28/17 at 09:00 Carvedilol (Coreg) 12.5 mg Q12HR PO Last administered on 03/28/17 08:33; Start 03/28/17 at 09:00 Furosemide (Lasix) 40 mg DAILY PO Last administered on 03/28/17 08:34; Start 03/28/17 at 09:00 Lisinopril (Prinivil) 10 mg DAILY PO Last administered on 03/28/17 08:34; Start 03/28/17 at 09:00 Potassium Chloride (KCl) 10 meq DAILY PO Last administered on 03/28/17 08:33; Start 03/28/17 at 09:00 Acetaminophen (Tylenol) 650 mg Q4H PRN PO headache/ pain Last administered on 08:34; Start 03/28/17 at 01:30 Ondansetron HCl (Zofran Inj) 4 mg Q6HR PRN IV PUSH nausea Last administered on 03/28/17 01:39; Start 03/28/17 at 01:30 Heparin Sodium (Porcine) (Heparin Inj) 5,000 units Q8HR SQ ; Start 03/28/17 at 06:00 A/P Assessment and Plan A/P elevated cardiac enzymes likely due to hypertensive urgency with history of noncompliance - adverse symptoms from IV hydralazine - medication d/c'd - restarted home antihypertensive medications - will add additional PRN medication if needed - monitor trends in bp and adjust treatment as indicated Cardiomyopathy - likely secondary to poorly controlled hypertension - EF 20% on echocardiogram dated 12/27/16 - consulted scientific systems analyst - Hypokalemia; will replace. DVT prophylaxis - Heparin 5000 units subq q8h . Discharge Planning consult case management for dc needs and follow-ups. Garrett Crabtree MD Mar 28, 2017 08:44
[2017-03-28] MEDS ORDERED: POTASSIUM CHLORIDE 10 MEQ CONTROLLED RELEASE TAB PO ONE ×2 (09:00→13:00)
[2017-03-28] MEDS ORDERED: ASPIRIN EC 325 MG TABEC PO SCH (09:00)
[2017-03-28 09:52] LABS: BLOOD, URINE NEG (NEG); CALCIUM OXALATE CRYSTALS,URINE RARE /hpf; COMMENT (UR) CULT NOT INDICATED; CULTURE IF INDICATED CULT NOT INDICATED; GLUCOSE,URINE NEG (NEG); KETONE, URINE NEG (NEG); MUCUS URINE FEW /lpf (OCC); NITRITE,URINE NEG (NEG); SQUAMOUS EPITHELIAL CELL URINE <1 /hpf (0-5); URINE COLOR YELLOW (YELLW/STRAW)
[2017-03-28 09:55] LABS: AMPHETAMINE, URINE NEG (NEG); BARBITURATES, URINE NEG (NEG); COCAINE, URINE NEG (NEG)
[2017-03-28] MEDS: FLUTICASONE PROPIONATE 50 MCG/ACT 16 GM NASAL SPRAY NASAL SCH ×2 (12:20→20:03)
--- NOTE | 2017-03-28 14:13 | MB ---
cc: JAMES ANTONIO DATE OF CONSULTATION: 03/28/2017 DATE OF : 1975 REASON FOR CONSULTATION Chest pain and shortness of breath. HISTORY OF PRESENT ILLNESS 42-year-old man with a past medical history significant for nonischemic cardiomyopathy diagnosed in his early 20s, ejection fraction 20% with diffuse global hypokinesia, hypertension and noncompliance with medication, who presented to the hospital with shortness of breath for the last three days associated with right-sided flank pain as well as dizziness. Denies fevers or chills. He notes to be noncompliant with medications secondary to lack of insurance and refills. In the emergency department his blood pressure was found to be 214/125. Thus he was admitted for further management and evaluation. REVIEW OF SYSTEMS Negative except for what is mentioned in the HPI. PAST MEDICAL HISTORY 1. Nonischemic cardiomyopathy. 2. Hypertension. 3. Left knee surgery. MEDICATIONS Cardiac home medications: 1. Aspirin 81 mg p.o. daily. 2. Bumex one tab p.o. daily. 3. Coreg 12.5 mg p.o. b.i.d. 4. Lasix 40 mg p.o. daily. 5. Lisinopril 10 mg p.o. daily. 6. Potassium chloride 10 mEq p.o. daily. ALLERGIES MORPHINE. SOCIAL HISTORY No smoking, alcohol or illicit drug use. FAMILY HISTORY Positive for coronary artery disease and stroke. PHYSICAL EXAMINATION VITAL SIGNS: Temperature 98.2, respiratory rate 20, heart rate 94, blood pressure 168/76. O2 sat 98% in room air. GENERAL: He is awake, alert, oriented x3, in no acute distress. NECK: No JVD. No bruits. LUNGS: Clear to auscultation bilaterally. No rhonchi, wheezes or rales. HEART: Regular rate and rhythm. No murmurs, rubs or gallops. ABDOMEN: Soft, nontender, nondistended. EXTREMITIES: Pulses throughout. There is mild edema. DATA Hemoglobin 12, hematocrit 37, platelet count 189. INR 1. Sodium 138, potassium 3.1, BUN 14, creatinine 1.2. Troponin 0.21, 0.22 and 0.22. BNP 223. Urinalysis unremarkable. Toxicology unremarkable. Chest x-ray: Cardiomegaly. No acute abnormality. EKG sinus rhythm with T-wave inversions in the lateral leads, unchanged from previous. Echocardiogram December 2016- EF of 20% with global hypokinesia. DIAGNOSIS 1. Hypertensive urgency. 2. Acute on chronic systolic heart failure exacerbation. 3. Mildly elevated troponin. 4. Noncompliance with medical therapy. ASSESSMENT AND PLAN 42-year-old male with the above history and findings admitted with atypical chest pain and hypertensive urgency in the setting of medical noncompliance. It is unfortunate that Mr. Olmedo is not being able to take his medications and therefore taking a toll on his medical health. He needs to be compliant with his medications as well as follow-up with physicians. As for the elevated troponin this is most likely from demand ischemia from his elevated blood pressure. Given known history of cardiomyopathy and clear history of noncompliance with medications I think its not necessary to pursue a invasive cardiac work-up at this time. He seems more compensated fo HF standpoint on exam and BP is better controlled today. Recommendations: -Restart cardiac home medications (BB, ACEi, ASA) -Strict inputs and outputs, -Daily weights, -Encourage ambulation, -IV diuresis. -Avoid electrolytes abnormalities -Consult to Social Work so that they can coordinate insurance Thank you for the opportunity to take part in the care of this patient. Will be available on a p.r.n. basis for any other questions or concerns. MD YESSI Maria/BT /1:40 PM /1:57 PM LENNY
--- NOTE | 2017-03-28 14:32 | EKG ---
Date Performed: 03/28/2017 Time Performed: 04:47:08 PTAGE: 42 years EKG: Sinus rhythm LVH with secondary repolarization abnormality Nonspecific ST-T wave changes Abnormal ECG COMPARED TO PRIOR ELECTROCARDIOGRAM, T wave changes are more prominent. PREVIOUS TRACING : 03/27/2017 22.33 DOCTOR: Mitchell Cornell Interpretating Date/Time 03/28/2017 14:30:40
[2017-03-29] VITALS: BP 140/98; PULSE 63; RESP 16; TEMP 98; O2SAT 99
[2017-03-29] MEDS: HEPARIN SODIUM - SQ 10,000 UNITS/ML VIAL SQ SCH (04:39)
[2017-03-29 05:02] VITALS: BP 140/98; PULSE 63; RESP 16; TEMP 98; O2SAT 99
[2017-03-29] MEDS: ACETAMINOPHEN 325 MG TAB PO PRN (05:25)
[2017-03-29 08:00] VITALS: BP 157/97; PULSE 70; RESP 20; TEMP 98.4; O2SAT 100
[2017-03-29] MEDS: CARVEDILOL 12.5 MG TAB PO SCH (08:23)
[2017-03-29] MEDS: BUMETANIDE 1 MG TAB PO SCH (08:24)
[2017-03-29] MEDS: ASPIRIN 81 MG CHEW TAB CHEW SCH (08:24)
[2017-03-29] MEDS: FUROSEMIDE 40 MG TAB PO SCH (08:24)
[2017-03-29] MEDS: POTASSIUM CHLORIDE 10 MEQ CAP PO SCH (08:24)
[2017-03-29] MEDS: LISINOPRIL 10 MG TAB PO SCH (08:24)
[2017-03-29] MEDS: FLUTICASONE PROPIONATE 50 MCG/ACT 16 GM NASAL SPRAY NASAL SCH (08:25)
[2017-03-29] MEDS: SODIUM CHLORIDE 0.9% FLUSH 10 ML FLUSH IV FLUSH SCH (08:26)
--- NOTE | 2017-03-29 10:07 | HHI.PR ---
Subjective Remarks resting comfortably with no distress. no chest pain or sob. no new complaints. Objective Vitals Vital Signs Date Time Temp Pulse Resp B/P Pulse Ox O2 Delivery O2 Flow Rate FiO2 03/29/17 08:00 98.4 70 20 157/97 100 03/29/17 05:02 98.0 63 16 140/98 99 03/29/17 00:00 98.0 63 16 140/98 99 03/28/17 20:24 58 03/28/17 20:10 Room Air 03/28/17 20:00 97.8 56 16 148/92 100 03/28/17 16:00 98.5 67 20 149/98 98 03/28/17 12:00 98.2 94 20 168/76 98 I/O 03/28/17 03/28/17 03/28/17 03/29/17 03/29/17 03/29/17 07:00 15:00 23:00 07:00 15:00 23:00 Intake Total 720 ml 502 ml 600 ml Output Total 1000 ml 0 ml 600 ml Balance -280 ml 502 ml 0 ml Intake Oral 720 ml 500 ml 600 ml IV Total 2 ml Output Urine Total 1000 ml 0 ml 600 ml # Bowel Movements 0 0 0 Result Diagram: 03/28/17 0326 03/28/17 0326 Imaging Last Impressions Chest X-Ray 03/27/17 1625 Signed Impressions: Service Date/Time: Monday, March 27, 2017 16:57 - CONCLUSION: 1. Cardiomegaly without failure. 2. No acute abnormality. Mor Vasquez MD Objective Remarks GENERAL: This is a well-nourished, well-developed patient, in no apparent distress. CARDIOVASCULAR: Regular rate and regular rhythm without murmurs, gallops, or rubs. RESPIRATORY: Clear to auscultation. Breath sounds equal bilaterally. No wheezes , rales, or rhonchi. GASTROINTESTINAL: Abdomen soft, non-tender, nondistended. Normal, active bowel sounds MUSCULOSKELETAL: Extremities without clubbing, cyanosis, or edema. NEURO: Alert & Oriented x4 to person, place, time, situation. Moves all ext x4 Procedures none Medications and IVs Current Medications Aspirin (Aspirin Chew) 324 mg ONCE ONCE PO Last administered on 03/27/17t 16: 30; Start 03/27/17 at 16:30; Stop 03/27/17 at 16:31; Status DC Sodium Chloride (NS Flush) 2 ml UNSCH PRN IVF FLUSH AFTER USING IV ACCESS; Start 03/27/17 at 16:30; Stop 03/27/17 at 22:12; Status DC Labetalol HCl (Trandate Inj) 10 mg ONCE ONCE IV PUSH Last administered on 03/27 16:30; Start 03/27/17 at 16:30; Stop 03/27/17 at 16:31; Status DC Enalaprilat (Vasotec Inj) 1.25 mg ONCE ONCE IV PUSH Last administered on 03/27 17:30; Start 03/27/17 at 17:30; Stop 03/27/17 at 17:31; Status DC Nitroglycerin (Nitroglycerin 2% Oint) 1 inch ONCE ONCE TOP Last administered on 03/27/17 17:30; Start 03/27/17 at 17:30; Stop 03/27/17 at 17:31; Status DC Sodium Chloride (NS Flush) 2 ml UNSCH PRN IV FLUSH FLUSH AFTER USING IV ACCESS ; Start 03/27/17 at 20:30 Sodium Chloride (NS Flush) 2 ml BID IV FLUSH Last administered on 03/29/17 08: 26; Start 03/27/17 at 21:00 Naloxone HCl (Narcan Inj) 0.4 mg UNSCH PRN IV SEE LABEL COMMENTS; Start at 20:30 Aspirin (Ecotrin Ec) 325 mg DAILY PO ; Start 03/28/17 at 09:00; Stop 03/28/17 at 09:00; Status DC Nitroglycerin (Nitrostat Sl) 0.4 mg Q5M PRN SL CHEST PAIN; Start 03/27/17 at 20 :30 Hydralazine HCl (Apresoline Inj) 10 mg Q30M PRN IV PUSH bp>160/90 Last administered on 03/27/17 22:56; Start 03/27/17 at 22:15; Stop 03/27/17 at 23:43 ; Status DC Aspirin (Aspirin Chew) 81 mg DAILY CHEW Last administered on 03/29/17 08:24; Start 03/28/17 at 09:00 Bumetanide (Bumetanide) 1 mg DAILY PO Last administered on 03/29/17 08:24; Start 03/28/17 at 09:00 Carvedilol (Coreg) 12.5 mg Q12HR PO Last administered on 03/29/17 08:23; Start 03/28/17 at 09:00 Furosemide (Lasix) 40 mg DAILY PO Last administered on 03/29/17 08:24; Start 03/28/17 at 09:00 Lisinopril (Prinivil) 10 mg DAILY PO Last administered on 03/29/17 08:24; Start 03/28/17 at 09:00 Potassium Chloride (KCl) 10 meq DAILY PO Last administered on 03/29/17 08:24; Start 03/28/17 at 09:00 Acetaminophen (Tylenol) 650 mg Q4H PRN PO headache/ pain Last administered on 05:25; Start 03/28/17 at 01:30 Ondansetron HCl (Zofran Inj) 4 mg Q6HR PRN IV PUSH nausea Last administered on 03/28/17 01:39; Start 03/28/17 at 01:30 Heparin Sodium (Porcine) (Heparin Inj) 5,000 units Q8HR SQ ; Start 03/28/17 at 06:00 Potassium Chloride (KCl) 30 meq ONCE ONCE PO Last administered on 03/28/17 10 :12; Start 03/28/17 at 09:00; Stop 03/28/17 at 09:01; Status DC Potassium Chloride (KCl) 30 meq ONCE ONCE PO Last administered on 03/28/17 12 :21; Start 03/28/17 at 13:00; Stop 03/28/17 at 13:01; Status DC Fluticasone Propionate (Flonase Les Spr) 1 spray BID NASAL Last administered on 03/29/17 08:25; Start 03/28/17 at 11:45 A/P Assessment and Plan A/P elevated cardiac enzymes likely due to hypertensive urgency with history of noncompliance - restarted home antihypertensive medications - - cardiology consult appreciated. Cardiomyopathy - likely secondary to poorly controlled hypertension - EF 20% on echocardiogram dated 12/27/16 - cardiology evaluation appreciated. -f/u as outpatient. Hypokalemia; replaced. DVT prophylaxis - Heparin 5000 units subq q8h . Discharge Planning dc home today when potassium level is resulted. f/u ; pcp. see med list. d/w the patient and case management. Garrett Crabtree MD Mar 29, 2017 10:07
[2017-03-29] MEDS ORDERED: POTA10CA PO (10:10)
[2017-03-29] MEDS ORDERED: BUME1TAB PO (10:10)
[2017-03-29] MEDS ORDERED: CARV12.5 PO (10:10)
[2017-03-29] MEDS ORDERED: LISI10TA3 PO (10:10)
[2017-03-29] MEDS ORDERED: FURO1TAB60 PO (10:10)
[2017-03-29] MEDS ORDERED: ASPI81CH CHEW (10:10)
--- NOTE | 2017-03-29 10:11 | HHI.DCPOC ---
Discharge Care Plan Diagnosis: (1) Elevated troponin (2) Hypertensive urgency Additional Problems elevated blood pressure. Goals to Promote Your Health * To prevent worsening of your condition and complications * To maintain your health at the optimal level Directions to Meet Your Goals Take your medications as prescribed Follow your dietary instruction Follow activity as directed Keep your appointments as scheduled Take your immunizations and boosters as scheduled If your symptoms worsen call your PCP, if no PCP go to Urgent Care Center or Emergency Room Smoking is Dangerous to Your Health. Avoid second hand smoke Call the 24-hour hour crisis hotline for domestic abuse at Garrett Crabtree MD Mar 29, 2017 10:11
--- NOTE | 2017-03-29 10:12 | HHI.DS ---
Discharge Summary Admission Date Mar 27, 2017 at 18:38 Discharge Date: Mar 29, 2017 Admitting Diagnosis Hypertensive Urgency, Elevated Troponin (1) Cardiomyopathy ICD Code: I42.9 Diagnosis: Secondary (2) Hypertensive urgency ICD Code: I16.0 Diagnosis: Principal Procedures none Brief History - From Admission Written by Savita Soto, acting as scribe for Dr. Kowalski on 03/27/17 at 23:23. The patient is seen in the emergency room. He reports that he has been having chest pain radiating to right flank and shortness of breath for the past 2-3 days accompanied by intermittent diaphoresis, and dizziness but denies associated syncope, denies palpitations. At the time of the visit, he reports feeling dizzy, flushed, and nauseated which is most likely related to the hydralazine IV he's received for hypertensive urgency. Denies history of CAD but reports history of CHF - states that he has never had a treadmill stress test or cardiac catheterization Echocardiogram personally reviewed from recent admission- EF 20% - 12/2016 Has had some night sweats and diarrhea x 1 day, no black or red stool over past two weeks. Denies recent fever, hematuria, or dysuria. States that he has been told he has prediabetes Has been out of home medications for over 3 weeks Patient is from [place] and has been in [place] for about 3 months Chest x-ray shows: Cardiomegaly without failure. CBC/BMP: 03/28/17 0326 03/28/17 0326 Significant Findings Laboratory Tests Test 03/27/17 03/27/17 03/28/17 03/28/17 16:45 23:00 03:26 08:30 Hemoglobin 12.6 GM/DL 12.2 GM/DL (13.0-17.0) (13.0-17.0) Hematocrit 38.3 % 37.2 % (39.0-51.0) (39.0-51.0) Red Cell Distribution Width 17.4 % 17.5 % (11.6-17.2) (11.6-17.2) Monocytes (%) (Auto) 11.7 % (0.0-8.0) Activated Partial 23.7 SEC Thromboplast Time (24.3-30.1) Chloride Level 108 MEQ/L (98-107) Estimat Glomerular Filtration 82 ML/MIN (>89) 78 ML/MIN (>89) Rate Aspartate Amino Transf 61 U/L (15-37) (AST/SGOT) Troponin I 0.21 NG/ML 0.22 NG/ML 0.22 NG/ML (0.02-0.05) (0.02-0.05) (0.02-0.05) B-Type Natriuretic Peptide 223 PG/ML (0-100) Red Blood Count 4.46 MIL/MM3 (4.50-5.90) Neutrophils (%) (Auto) 79.8 % (16.0-70.0) Potassium Level 3.1 MEQ/L (3.5-5.1) Random Glucose 188 MG/DL (74-106) Urine Leukocyte Esterase TRACE (NEG) Urine Calcium Oxalate Crystals RARE /hpf (NONE) Urine Mucus FEW /lpf (OCC) Imaging Last Impressions Chest X-Ray 03/27/17 1625 Signed Impressions: Service Date/Time: Monday, March 27, 2017 16:57 - CONCLUSION: 1. Cardiomegaly without failure. 2. No acute abnormality. Mor Vasquez MD PE at Discharge GENERAL: This is a well-nourished, well-developed patient, in no apparent distress. CARDIOVASCULAR: Regular rate and regular rhythm without murmurs, gallops, or rubs. RESPIRATORY: Clear to auscultation. Breath sounds equal bilaterally. No wheezes , rales, or rhonchi. GASTROINTESTINAL: Abdomen soft, non-tender, nondistended. Normal, active bowel sounds MUSCULOSKELETAL: Extremities without clubbing, cyanosis, or edema. NEURO: Alert & Oriented x4 to person, place, time, situation. Moves all ext x4 Hospital Course elevated cardiac enzymes likely due to hypertensive urgency with history of noncompliance - restarted home antihypertensive medications - - cardiology consult appreciated. Cardiomyopathy - likely secondary to poorly controlled hypertension - EF 20% on echocardiogram dated 12/27/16 - cardiology evaluation appreciated. -f/u as outpatient. Hypokalemia; replaced. Pt Condition on Discharge: Good Discharge Disposition: Discharge Home Discharge Time: <= 30 minutes Discharge Instructions DIET: Follow Instructions for: Heart Healthy Diet, Low Sodium Diet Activities you can perform: Regular-No Restrictions Follow up Referrals: PCP Follow-up Continued Medications: Aspirin (Aspirin) 81 Mg Chew 81 MG CHEW DAILY cad Days 30 Ref 0 TAB (This prescription has been renewed) Bumetanide (Bumetanide) 1 Mg Tab 1 MG PO DAILY diuretic Days 30 Ref 0 TAB NS (This prescription has been renewed) Carvedilol (Coreg) 12.5 Mg Tab 12.5 MG PO Q12HR $4 at [facility] hypertension Days 30 Ref 0 TAB (This prescription has been renewed) Furosemide (Lasix) 40 Mg Tab 40 MG PO DAILY diuretic Days 30 Ref 0 TAB (This prescription has been renewed) Lisinopril (Lisinopril) 10 Mg Tab 10 MG PO DAILY Free at [facility] hypertension #30 Ref 0 TAB (This prescription has been renewed) Potassium Chloride ER (Potassium Chloride ER) 10 Meq Cap 10 MEQ PO DAILY Electrolyte Replacement Days 30 Ref 0 CAP (This prescription has been renewed) Garrett Crabtree MD Mar 29, 2017 10:12
[2017-03-29 12:00] VITALS: BP 150/100; PULSE 63; RESP 20; TEMP 98.4; O2SAT 100
== END 2017-03-29 16:10 | disposition home or self-care (01) | DRG 304 ==
LOC: NEPE 14:53 → NEDA 18:38 → NEDH 22:41 → N04A 03-28 00:45
PROVIDERS: ADMIT Internal Medicine; ATTEND Internal Medicine
DX: I16.0 Hypertensive urgency (principal); I13.0 Hypertensive heart and chronic kidney disease with heart failure and stage 1 through stage 4 chronic kidney disease, or unspecified chronic kidney disease; I50.23 Acute on chronic systolic (congestive) heart failure; I42.9 Cardiomyopathy, unspecified; R74.8 Abnormal levels of other serum enzymes; N18.9 Chronic kidney disease, unspecified; E87.6 Hypokalemia; R73.03 Prediabetes; Z79.82 Long term (current) use of aspirin; Z91.14 Patient's other noncompliance with medication regimen
CPT/HCPCS: 71010; 80048; 80053; 80307; 81001; 82550; 82552; 83735; 83880; 84132; 84484; 85025; 85610; 85730; 93005; 96374; 96375; J0360; J2405

== ENCOUNTER → 2017-05-10 | Outpatient (CLI) | payer OTHER ==
[~2017-05-10] MED LIST changes: +AMLO10TA2 PO; +BAYETES; +LISI40TA PO; +MELA5TAB15 PO
[2017-05-10 09:45] LABS: ANION GAP 6 MEQ/L (5-15); AST (GOT) 21 U/L (15-37); BICARBONATE 27.3 MEQ/L (21.0-32.0); BLOOD UREA NITROGEN 14 MG/DL (7-18); CHLORIDE 102 MEQ/L (98-107); GLOMERULAR FILTRATION RATE 85 ML/MIN (>89); GLUCOSE,FASTING 117 MG/DL (74-99); POTASSIUM 3.9 MEQ/L (3.5-5.1); SODIUM (NA) 135 MEQ/L (136-145)
[2017-05-10 09:46] LABS: ALT (GPT) 24 U/L (12-78)
[2017-05-10 09:51] LABS: ALKALINE PHOSPHATASE 69 U/L (45-117); HDL CHOLESTEROL 61.2 MG/DL (40.0-60.0); LDL CHOLESTEROL 128 MG/DL (0-99); TOTAL BILIRUBIN ADULT 0.9 MG/DL (0.2-1.0)
[2017-05-10 18:08] LABS: HEMOGLOBIN A1a 0.9 %; HEMOGLOBIN A1b 0.7 %; HEMOGLOBIN Ao 85.8 %; HEMOGLOBIN LA1C 1.9 %; HEMOGLOBIN P3 3.6 %
== END ==
LOC: CLAB 08:41
PROVIDERS: ATTEND Family Medicine
DX: N18.9 Chronic kidney disease, unspecified (principal); E11.22 Type 2 diabetes mellitus with diabetic chronic kidney disease
CPT/HCPCS: 36415; 80053; 80061; 83036

== ENCOUNTER 2018-02-26 20:43 | Emergency (ER) | payer OTHER ==
[~2018-02-26] VITALS: Ht 180.3 cm; Wt 105.0 kg
[~2018-02-26 20:43] MED LIST changes: +ASPI-516 CHEW; -ASPI81CH CHEW; -LISI40TA PO; +MELA5 PO; -MELA5TAB15 PO
[2018-02-26 20:51] VITALS: BP 155/98; PULSE 99; RESP 16; TEMP 98.5; O2SAT 99
--- NOTE | 2018-02-26 21:09 | PD ---
HPI Chief Complaint: Respiratory Symptoms Time Seen by Provider: 20:57 Travel History International Travel<30 days: No Contact w/Intl Traveler<30days: No Traveled to known affect area: No History of Present Illness HPI 43-year-old male presents to the emergency department for evaluation of cough, chest tightness, shortness of breath that started approximately 2 days ago. Patient reports history of cardiomyopathy, CHF, hypertension, ejection fraction of 20%. Patient reports taking multiple blood pressure medications, furosemide. 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 Patient reports the chest tightness 4/10, tight across the anterior bilateral chest. He also reports vomiting approximately 3 times the past 24 hours. Reports abdominal pain when he vomits. He reports subjective fevers. He states that his abdomen feels swollen. He reports compliance with his medications. He has not taken aspirin today. He denies exacerbating or alleviating factors. Moderate severity. He denies any recent surgery or travel. No hemoptysis. No leg edema. He denies history DVT/PE. PFSH Past Medical History Hx Anticoagulant Therapy: Yes (BABY ASPIRIN ) Cancer: No Cardiovascular Problems: Yes (HTN ) High Cholesterol: No Chest Pain: No Congestive Heart Failure: Yes Cerebrovascular Accident: No Diabetes: Yes (pre diabetic) Patient Takes Glucophage: No Diminished Hearing: No Endocrine: Yes GERD: No Genitourinary: Yes Headaches: Yes Hypertension: Yes Kidney Stones: No Musculoskeletal: No Neurologic: Yes Psychiatric: No Reproductive: No Respiratory: No Migraines: No Renal Failure: Yes Seizures: No Tetanus Vaccination: < 5 Years Influenza Vaccination: Yes Past Surgical History Abdominal Surgery: No Cardiac Surgery: No Ear Surgery: No Endocrine Surgery: No Eye Surgery: No Genitourinary Surgery: No Gynecologic Surgery: No Oral Surgery: No Thoracic Surgery: No Social History Alcohol Use: No Tobacco Use: No Substance Use: No Allergies-Medications (Allergen,Severity, Reaction): Coded Allergies: morphine (Unverified Allergy, Intermediate, Hives, 02/26/18) Reported Meds & Prescriptions Reported Meds & Active Scripts Active Amlodipine (Amlodipine Besylate) 10 Mg Tab 10 Mg PO DAILY Lasix (Furosemide) 40 Mg Tab 40 Mg PO DAILY Lisinopril 10 Mg Tab 10 Mg PO BID Coreg (Carvedilol) 12.5 Mg Tab 12.5 Mg PO Q12HR $4 at [facility] Potassium Chloride ER (Potassium Chloride) 10 Meq Cap 10 Meq PO DAILY Bumetanide 1 Mg Tab 1 Mg PO DAILY [place]noch Contour Blood Glucose Strips (Blood Glucose Test Strips) Strip Strip 1 Strip .ROUTE TID Aspirin 81 Mg Chew 81 Mg CHEW DAILY 30 Days Reported Melatonin 5 Mg Tab 5 Mg PO HS PRN Review of Systems Except as stated in HPI: all other systems reviewed are Neg Physical Exam Narrative GENERAL: Well-nourished, well-developed male patient, afebrile. SKIN: Focused skin assessment warm/dry. HEAD: Normocephalic. Atraumatic. EYES: No scleral icterus. No injection or drainage. NECK: Supple, trachea midline. No JVD or lymphadenopathy. CARDIOVASCULAR: Regular rate and rhythm without murmurs, gallops, or rubs. Bilateral radial and pedal pulses are 2+ RESPIRATORY: Breath sounds equal bilaterally. No accessory muscle use. Lung sounds are clear to auscultation. GASTROINTESTINAL: Abdomen soft, non-tender, nondistended. MUSCULOSKELETAL: No cyanosis, or edema. BACK: Nontender without obvious deformity. No CVA tenderness. Data Data Last Documented VS Vital Signs Date Time Temp Pulse Resp B/P (MAP) Pulse Ox O2 Delivery O2 Flow Rate FiO2 02/26/18 20:51 98.5 99 16 155/98 (117) 99 Orders Orders Complete Blood Count With Diff (02/26/18 21:05) Comprehensive Metabolic Panel (02/26/18 21:05) B-Type Natriuretic Peptide (02/26/18 21:05) Act Partial Throm Time (Ptt) (02/26/18 21:05) Prothrombin Time / Inr (Pt) (02/26/18 21:05) Magnesium (Mg) (02/26/18 21:05) Ckmb (Isoenzyme) Profile (02/26/18 21:05) Troponin I (02/26/18 21:05) Iv Access Insert/Monitor (02/26/18 21:05) Electrocardiogram (02/26/18 21:05) Ecg Monitoring (02/26/18 21:05) Oximetry (02/26/18 21:05) Oxygen Administration (02/26/18 21:05) Chest, Single Ap (02/26/18 21:05) Sodium Chloride 0.9% Flush (Ns Flush) (02/26/18 21:15) Aspirin Chew (Aspirin Chew) (02/26/18 21:15) Metoclopramide Inj (Reglan Inj) (02/26/18 21:15) Lipase (02/26/18 21:13) CKMB (02/26/18 21:10) CKMB% (02/26/18 21:10) Labs Laboratory Tests Test 02/26/18 21:10 White Blood Count 6.1 TH/MM3 Red Blood Count 4.67 MIL/MM3 Hemoglobin 13.2 GM/DL Hematocrit 39.0 % Mean Corpuscular Volume 83.4 FL Mean Corpuscular Hemoglobin 28.3 PG Mean Corpuscular Hemoglobin Concent 33.9 % Red Cell Distribution Width 14.4 % Platelet Count 273 TH/MM3 Mean Platelet Volume 8.1 FL Neutrophils (%) (Auto) 46.4 % Lymphocytes (%) (Auto) 31.1 % Monocytes (%) (Auto) 16.9 % Eosinophils (%) (Auto) 5.0 % Basophils (%) (Auto) 0.6 % Neutrophils # (Auto) 2.8 TH/MM3 Lymphocytes # (Auto) 1.9 TH/MM3 Monocytes # (Auto) 1.0 TH/MM3 Eosinophils # (Auto) 0.3 TH/MM3 Basophils # (Auto) 0.0 TH/MM3 CBC Comment DIFF FINAL Differential Comment Prothrombin Time 9.9 SEC Prothromb Time International Ratio 1.0 RATIO Activated Partial Thromboplast Time 22.4 SEC Blood Urea Nitrogen 16 MG/DL Creatinine 1.34 MG/DL Random Glucose 158 MG/DL Total Protein 8.5 GM/DL Albumin 3.6 GM/DL Calcium Level 8.8 MG/DL Magnesium Level 2.3 MG/DL Alkaline Phosphatase 84 U/L Aspartate Amino Transf (AST/SGOT) 54 U/L Alanine Aminotransferase (ALT/SGPT) 41 U/L Total Bilirubin 0.5 MG/DL Sodium Level 139 MEQ/L Potassium Level 4.6 MEQ/L Chloride Level 106 MEQ/L Carbon Dioxide Level 24.0 MEQ/L Anion Gap 9 MEQ/L Estimat Glomerular Filtration Rate 70 ML/MIN Total Creatine Kinase 351 U/L Creatine Kinase MB % 0.4 % Troponin I 0.03 NG/ML B-Type Natriuretic Peptide 7 PG/ML Lipase 241 U/L [facility] Medical Decision Making Medical Screen Exam Complete: Yes Emergency Medical Condition: Yes Medical Record Reviewed: Yes Interpretation(s) chest x-ray - CONCLUSION: No acute disease. Differential Diagnosis URI versus pneumonia versus CHF exacerbation versus ACS Narrative Course 43-year-old male presents to the emergency department for evaluation of cough, chest tightness, shortness of breath for 2 days. He also reports vomiting. EKG , CBC, CMP, lipase, magnesium, CK, troponin, PTT, PT/INR, chest x-ray are ordered and pending. Patient is given aspirin 162 mg p.o., Reglan 10 mg IV. EKG shows SR, HR 83, no acute ST changes. CBC shows no acute abnormality. CMP shows creatinine 1.34, hyperglycemia 158. Lipase is 241. Magnesium is 2.3. CK is 351. Troponin is 0.03. Coags are unremarkable. Chest x-ray shows no acute disease. My attending physician, Dr. Philippe, examined patient. She agrees symptoms are consistent with viral URI. Patient will be discharged with cough syrup. He is to follow up with his primary care physician. Diagnosis Primary Impression: Viral URI with cough Referrals: Primary Care Physician call for appointment Patient Instructions: General Instructions, Upper Respiratory Infection (ED) Departure Forms: Tests/Procedures, Work Release Enter return to work date: March 01, 2018 Additional Instructions: Take cough syrup as directed as needed for cough. Follow-up with a primary care physician. Return to the emergency department for any acute worsening of symptoms. Med/Other Pt SpecificInfo: Prescription(s) given Scripts Guaifenesin-Dextromethorphan Liq (Guaifenesin DM Liq) 10-100 Mg/5 Ml Liq 10 ML PO Q6HR Y for COUGH, #1 BOTTLE 0 Refills Prov: Pricila Beltran 02/26/18 Disposition: 01 DISCHARGE HOME Condition: Stable Pricila Beltran February 26, 2018 21:09
[2018-02-26] MEDS ORDERED: METOCLOPRAMIDE HCL 10 MG/2 ML VIAL IV PUSH ONE (21:15)
[2018-02-26] MEDS ORDERED: ASPIRIN 81 MG CHEW TAB CHEW ONE (21:15)
[2018-02-26] MEDS ORDERED: SODIUM CHLORIDE 0.9% FLUSH 10 ML FLUSH IVF PRN (21:15)
[2018-02-26 21:36] LABS: AUTOMATED NEUTROPHIL # 2.8 TH/MM3 (1.8-7.7); BASOPHIL % 0.6 % (0.0-2.0); EOSINOPHIL # 0.3 TH/MM3 (0-0.4); HEMOGLOBIN 13.2 GM/DL (13.0-17.0); LYMPH % 31.1 % (9.0-44.0); LYMPHOCYTE # 1.9 TH/MM3 (1.0-4.8); MEAN CELL VOLUME 83.4 FL (80.0-100.0); MEAN CORPUSCULAR HEMOGLOBIN 28.3 PG (27.0-34.0); MEAN CORPUSCULAR HGB CONC 33.9 % (32.0-36.0); MEAN PLATELET VOLUME 8.1 FL (7.0-11.0); MONO % 16.9 % (0.0-8.0); NEUT % 46.4 % (16.0-70.0); PLATELET COUNT 273 TH/MM3 (150-450); RED BLOOD COUNT 4.67 MIL/MM3 (4.50-5.90); RED CELL DISTRIBUTION WIDTH 14.4 % (11.6-17.2); WHITE BLOOD COUNT 6.1 TH/MM3 (4.0-11.0)
--- NOTE | 2018-02-26 21:46 | RADRPT ---
EXAM DATE/TIME: 02/26/2018 21:28 [place] COMPARISON: CHEST SINGLE AP, March 27, 2017, 16:57. INDICATIONS : Shortness of breath, cough, congestion. MEDICAL HISTORY : Hypertension. SURGICAL HISTORY : None. ENCOUNTER: Initial ACUITY: 2 days PAIN SCORE: 5/10 LOCATION: Bilateral upper chest FINDINGS: A single view of the chest demonstrates the lungs to be symmetrically aerated without evidence of mas s, infiltrate or effusion. The cardiomediastinal contours are unremarkable. Osseous structures are intact. CONCLUSION: No acute disease. Eddy Parry MD on February 26, 2018 at 21:43 Board Certified Radiologist. This report was verified electronically.
[2018-02-26 21:52] LABS: PROTHROMBIN TIME - PATIENT 9.9 SEC (9.8-11.6)
[2018-02-26 22:06] LABS: ALT (GPT) 41 U/L (12-78)
[2018-02-26 22:12] LABS: ALBUMIN 3.6 GM/DL (3.4-5.0); ALKALINE PHOSPHATASE 84 U/L (45-117); AST (GOT) 54 U/L (15-37); BLOOD UREA NITROGEN 16 MG/DL (7-18); CALCIUM 8.8 MG/DL (8.5-10.1); CHLORIDE 106 MEQ/L (98-107); CREATININE 1.34 MG/DL (0.60-1.30); GLOMERULAR FILTRATION RATE 70 ML/MIN (>89); GLUCOSE,RANDOM 158 MG/DL (74-106); MAGNESIUM 2.3 MG/DL (1.5-2.5); SODIUM (NA) 139 MEQ/L (136-145); TOTAL BILIRUBIN ADULT 0.5 MG/DL (0.2-1.0); TOTAL PROTEIN 8.5 GM/DL (6.4-8.2); TROPONIN I 0.03 NG/ML (0.02-0.05)
--- NOTE | 2018-02-26 22:34 | PD ---
Physical Exam Narrative I, Dr. Philippe, have reviewed the advance practice practitioner's documentation and am in agreement, met with the patient face to face, made the diagnosis, and the medical decision making was done by me. *My assessment and Findings: Viral syndrome vs. URI vs. pneumonia 43yo M with PMH of CHF, HTN here with c/o cough, chest tightness, nasal congestion, rhinorrhea for 1 few days. Pt has positive post tussive vomiting as well. Chest tightness is across his chest and worst with coughing. Pt is saturating at 99% on RA and speaking in complete sentences. Labs reviewed, no leukocytosis. H/H normal. BNP normal. Troponin negative. Creatinine mildly elevated at 1.34. CXR negative. Symptoms are consistent with URI. Do not think this is cardiac. Pt given reglan, robitussin and is feeling a little better. Return precautions given. Data Data Last Documented VS Vital Signs Date Time Temp Pulse Resp B/P (MAP) Pulse Ox O2 Delivery O2 Flow Rate FiO2 02/26/18 20:51 98.5 99 16 155/98 (117) 99 Orders Orders Complete Blood Count With Diff (02/26/18 21:05) Comprehensive Metabolic Panel (02/26/18 21:05) B-Type Natriuretic Peptide (02/26/18 21:05) Act Partial Throm Time (Ptt) (02/26/18 21:05) Prothrombin Time / Inr (Pt) (02/26/18 21:05) Magnesium (Mg) (02/26/18 21:05) Ckmb (Isoenzyme) Profile (02/26/18 21:05) Troponin I (02/26/18 21:05) Iv Access Insert/Monitor (02/26/18 21:05) Electrocardiogram (02/26/18 21:05) Ecg Monitoring (02/26/18 21:05) Oximetry (02/26/18 21:05) Oxygen Administration (02/26/18 21:05) Chest, Single Ap (02/26/18 21:05) Sodium Chloride 0.9% Flush (Ns Flush) (02/26/18 21:15) Aspirin Chew (Aspirin Chew) (02/26/18 21:15) Metoclopramide Inj (Reglan Inj) (02/26/18 21:15) Lipase (02/26/18 21:13) CKMB (02/26/18 21:10) CKMB% (02/26/18 21:10) Guaifen-Cod 200-20 Mg/10ml Liq (Robituss (02/26/18 22:45) Guaifen-Dm 200-20 Mg/10 Ml Liq (Robituss (02/26/18 22:45) Ed Discharge Order (02/26/18 22:38) Labs Laboratory Tests Test 02/26/18 21:10 White Blood Count 6.1 TH/MM3 Red Blood Count 4.67 MIL/MM3 Hemoglobin 13.2 GM/DL Hematocrit 39.0 % Mean Corpuscular Volume 83.4 FL Mean Corpuscular Hemoglobin 28.3 PG Mean Corpuscular Hemoglobin Concent 33.9 % Red Cell Distribution Width 14.4 % Platelet Count 273 TH/MM3 Mean Platelet Volume 8.1 FL Neutrophils (%) (Auto) 46.4 % Lymphocytes (%) (Auto) 31.1 % Monocytes (%) (Auto) 16.9 % Eosinophils (%) (Auto) 5.0 % Basophils (%) (Auto) 0.6 % Neutrophils # (Auto) 2.8 TH/MM3 Lymphocytes # (Auto) 1.9 TH/MM3 Monocytes # (Auto) 1.0 TH/MM3 Eosinophils # (Auto) 0.3 TH/MM3 Basophils # (Auto) 0.0 TH/MM3 CBC Comment DIFF FINAL Differential Comment Prothrombin Time 9.9 SEC Prothromb Time International Ratio 1.0 RATIO Activated Partial Thromboplast Time 22.4 SEC Blood Urea Nitrogen 16 MG/DL Creatinine 1.34 MG/DL Random Glucose 158 MG/DL Total Protein 8.5 GM/DL Albumin 3.6 GM/DL Calcium Level 8.8 MG/DL Magnesium Level 2.3 MG/DL Alkaline Phosphatase 84 U/L Aspartate Amino Transf (AST/SGOT) 54 U/L Alanine Aminotransferase (ALT/SGPT) 41 U/L Total Bilirubin 0.5 MG/DL Sodium Level 139 MEQ/L Potassium Level 4.6 MEQ/L Chloride Level 106 MEQ/L Carbon Dioxide Level 24.0 MEQ/L Anion Gap 9 MEQ/L Estimat Glomerular Filtration Rate 70 ML/MIN Total Creatine Kinase 351 U/L Creatine Kinase MB % 0.4 % Troponin I 0.03 NG/ML B-Type Natriuretic Peptide 7 PG/ML Lipase 241 U/L MDM Supervised Visit with JOSE: Yes Interpretation(s) EKG: NSR 83bpm. LAD. No ST segment elevation or depression. Diagnosis Primary Impression: Viral URI with cough Scripts Guaifenesin-Dextromethorphan Liq (Guaifenesin DM Liq) 10-100 Mg/5 Ml Liq 10 ML PO Q6HR Y for COUGH, #1 BOTTLE 0 Refills Prov: Pricila Beltran 02/26/18 Amira Philippe DO February 26, 2018 22:34
[2018-02-26] MEDS ORDERED: GUAI1SOL3 PO (22:35)
[2018-02-26] MEDS ORDERED: GUAISYP7 PO (22:37)
[2018-02-26] MEDS ORDERED: guaiFENesin/DEXTROMETHORPHAN 200 MG/20 MG/10 ML CUP PO ONE (22:45)
[2018-02-26] MEDS ORDERED: guaiFENesin/CODEINE SYRUP 200 MG/20 MG/10 ML CUP PO ONE (22:45)
[2018-02-26 22:55] VITALS: BP 122/85; PULSE 70; RESP 18; O2SAT 98
--- NOTE | 2018-02-27 22:25 | EKG ---
Date Performed: 02/26/2018 Time Performed: 21:28:11 PTAGE: 43 years EKG: Sinus rhythm MINIMAL VOLTAGE CRITERIA FOR LVH, CONSIDER NORMAL VARIANT INFERIOR MYOCARDIAL INFARCTION ABNORMAL EC G PREVIOUS TRACING : 03/28/2017 04.47 Compared to previous tracing, T wave abnormalities are les s prominent DOCTOR: Tomas Alexander Interpretating Date/Time 02/27/2018 22:24:22
== END 2018-02-26 22:57 | disposition home or self-care (01) ==
LOC: NEPC 20:43
DX: J06.9 Acute upper respiratory infection, unspecified (principal); I11.0 Hypertensive heart disease with heart failure; I50.9 Heart failure, unspecified
CPT/HCPCS: 71045; 80053; 82550; 82552; 83690; 83735; 83880; 84484; 85025; 85610; 85730; 93005; 96374; 99285; J2765